=== PATIENT | male | born 1975 | race Caucasian/White ===

== ENCOUNTER → 2019-04-22 12:37 | Outpatient (BNVA) | payer MEDICARE, MEDICAID, SELFPAY | PROVIDERS: PCP Nurse Practitioner Family; Visit Provider Internal Medicine Cardiovascular Disease | DX: I50.33 Acute on chronic diastolic (congestive) heart failure (principal) | CPT/HCPCS: 83880 ==

== ENCOUNTER 2019-06-02 12:12 | Outpatient (CLI) | payer MEDICARE, MEDICAID, SELFPAY ==
--- NOTE | 2019-06-02 12:45 | USCV_ITS ---
Yg Vigil Age: 43 Gender: M : 1975 Exam Date: 06/02/2019 12:21 Ordering Phys: Cindy Harper MD ([email or web address]) Technologist: Jefferson Soto [place] [facility] [place]ication: EF BP: 124 / 72 HR: 107 Rhythm: Sinus Technical Quality: Adequate MEASUREMENTS (Male / Female) Normal Values 2D ECHO LV Diastolic Diameter PLAX 4.9 cm 4.2 - 5.9 / 3.9 - 5.3 cm LV Systolic Diameter PLAX 4.7 cm IVS Diastolic Thickness 0.8 cm 0.6 - 1.0 / 0.6 - 0.9 cm IVS Systolic Thickness 1.2 cm LVPW Diastolic Thickness 1.1 cm 0.6 - 1.0 / 0.6 - 0.9 cm LVPW Systolic Thickness 1.1 cm LVOT Diameter 2.1 cm LV Ejection Fraction 2D Teich 8.4 % LV Ejection Fraction MOD 2C 33.3 % LV Ejection Fraction 2C AL 35.2 % LA Diameter 3.7 cm LA Width 3.9 cm LA Height 4.9 cm RA Width 3.4 cm FINDINGS Left Ventricle Diffuse hypokinesia of the left ventricle with ejection fraction of 33%. Dilated LV cavity. Technically difficult study Right Ventricle Possibly of normal size and ejection fraction. Right Atrium Possibly of normal size Left Atrium Mildly dilated Mitral Valve Thickened mitral valve. Aortic Valve Thickened aortic valve. Tricuspid Valve Minimally thickened Pulmonic Valve Minimally thickened Pericardium No pericardial effusion. Aorta Normal aortic annulus size. CONCLUSIONS Mildly dilated LV cavity with a diminished ejection fraction 33%. Diffuse hypokinesia of the left ventricle. Mildly dilated left atrium. Thickened aortic and mitral valves. No obvious intracardiac masses. No significant pericardial effusion. Compared to the study from 12/29/2018, there may be slight improvement in the ejection fraction. Because of the technical difficulties, exact comparison is difficult. Consider MUGA scan Dr Cindy Harper MD FACC (Electronically Signed) Final Date: 04 June 2019 20:09 S
== END 2019-06-02 12:13 | disposition home or self-care (01) ==
LOC: US 12:14
PROVIDERS: Family Provider Nurse Practitioner Family; PCP Nurse Practitioner Family; Visit Provider Internal Medicine Cardiovascular Disease
DX: I42.9 Cardiomyopathy, unspecified (principal); I50.22 Chronic systolic (congestive) heart failure; I08.0 Rheumatic disorders of both mitral and aortic valves
CPT/HCPCS: 93308

== ENCOUNTER → 2019-12-24 12:12 | Outpatient (BNVA) | payer MEDICARE, MEDICAID, SELFPAY | PROVIDERS: Family Provider Nurse Practitioner Family; PCP Nurse Practitioner Family; Visit Provider Internal Medicine Cardiovascular Disease | DX: I50.33 Acute on chronic diastolic (congestive) heart failure (principal); I50.22 Chronic systolic (congestive) heart failure; I42.0 Dilated cardiomyopathy; R06.02 Shortness of breath | CPT/HCPCS: 80048; 83880 ==

== ENCOUNTER 2020-05-24 08:43 | Outpatient (CLI) | payer MEDICARE, MEDICAID, SELFPAY ==
--- NOTE | 2020-05-24 09:00 | NMCV_ITS ---
NM card bld pool r or s*[id number] Yg Vigil Age: 44 Gender: M : 1975 Exam Date: 05/24/2020 09:00 Ordering Phys: Cindy Harper MD ([email or web address]) Technologist: DIANNE Salamanca Exam Location: [facility] Indications: CARDIOMYOPATHY 356* Camera Used: [employer] Protocol: three view gated blood pool study Technical Image Quality: Good Dose: Admin Site: Administered By: [id number] Tagged RBCs: 23.9 IV - Right Hand DIANNE Jeffries PYP: EJECTION FRACTION: Automatic LV EF: 34 Rest RV EF: Manual LV EF: FINDINGS Ejection fraction by automatic method was 34%. LV wall motion analysis revealed diffuse hypokinesia of the left ventricle CONCLUSIONS LV ejection fraction is estimated to be 34%. Segmental wall motion analysis revealed diffuse hypokinesia of the left ventricle Dr Cindy Harper MD FACC (Electronically Signed) Final Date: 24 May 2020 18:57 S
== END 2020-05-24 08:44 | disposition home or self-care (01) ==
PROVIDERS: PCP Nurse Practitioner Family; Visit Provider Internal Medicine Cardiovascular Disease
DX: I42.9 Cardiomyopathy, unspecified (principal)
CPT/HCPCS: 78472; A9560

== ENCOUNTER → 2021-12-26 12:19 | Outpatient (BNVA) | payer MEDICARE, MEDICAID, SELFPAY | PROVIDERS: PCP Nurse Practitioner Family; Visit Provider Internal Medicine Cardiovascular Disease | DX: I11.0 Hypertensive heart disease with heart failure (principal); I50.22 Chronic systolic (congestive) heart failure; I42.0 Dilated cardiomyopathy; E78.2 Mixed hyperlipidemia; Z87.891 Personal history of nicotine dependence | CPT/HCPCS: 99213 ==

== ENCOUNTER → 2022-07-10 11:14 | Outpatient (BNVA) | payer MEDICARE, MEDICAID, SELFPAY | PROVIDERS: PCP Nurse Practitioner Family; Visit Provider Internal Medicine Cardiovascular Disease | DX: I11.0 Hypertensive heart disease with heart failure (principal); I50.22 Chronic systolic (congestive) heart failure; I42.0 Dilated cardiomyopathy; G47.33 Obstructive sleep apnea (adult) (pediatric); E78.2 Mixed hyperlipidemia; G71.00 Muscular dystrophy, unspecified; Z87.891 Personal history of nicotine dependence | CPT/HCPCS: 99214 ==

== ENCOUNTER 2022-08-03 13:47 | Outpatient (CLI) | payer MEDICARE, MEDICAID, SELFPAY ==
--- NOTE | 2022-08-03 13:45 | USCV_ITS ---
Yg Vigil Age: 46 Gender: M : 1975 Exam Date: 08/03/2022 14:25 Ordering Phys: Cindy Harper MD ([email or web address]) Technologist: RICARDO [place]am Location[place] [facility] [place] Indication: CARDIOMYOPATHY BP: 115 / 74 HR: 94 Rhythm: Sinus Technical Quality: Adequate MEASUREMENTS (Male / Female) Normal Values 2D ECHO LVOT Diameter 2.0 cm LV Ejection Fraction MOD 2C 43.9 % LV Ejection Fraction 2C AL 45.3 % LA Diameter 3.0 cm LA Width 2.8 cm LA Height 4.3 cm RA Width 3.4 cm RA Height 4.0 cm Aorta at Sinotubular Diameter 2.4 cm IVC Diameter 1.5 cm M-MODE Aortic Annulus Diameter 2.8 cm LA Ao Ratio MM 1.0 MV E Point Septal Separation 1.7 cm DOPPLER AV Peak Velocity 132.0 cm/s LVOT Peak Velocity 98.0 cm/s AV Area Cont Eq vti 2.5 cm squared AV Area Cont Eq pk 2.3 cm squared MV Peak Velocity 87.0 cm/s MV Area PHT 4.1 cm squared Mitral E to A Ratio 0.7 MV E' Velocity 30.5 cm/s Mitral E to MV E' Ratio 8.6 Mitral E to LV E' Lateral Ratio 9.8 Mitral E to LV E' Septal Ratio 7.7 TR Peak Velocity 136.2 cm/s TR Peak Gradient 7.4 mmHg TR Mean Velocity 108.4 cm/s TR Mean Gradient 5.0 mmHg TR Velocity Time Integral 31.2 cm TV Peak E Velocity 41.0 cm/s Right Atrial Pressure 3.0 mmHg Pulmonary Artery Systolic Pressu 10.4 mmHg PV Peak Velocity 120.0 cm/s RV Acceleration Time 0.1 s RV Ejection Time 0.2 s RV AcT/ET 0.5 FINDINGS Left Ventricle Left ventricle appears to be dilated. LV systolic function is moderately reduced with EF of 35 to 40%. Moderate global hypokinesis is seen. Grade 1 diastolic dysfunction. Right Ventricle Normal in size. RV is mildly hypokinetic by TAPSE Right Atrium Normal in size Left Atrium Normal in size Mitral Valve Structurally normal mitral valve. Trace mitral regurgitation. Aortic Valve Aortic valve is thickened. No significant stenosis or regurgitation. Tricuspid Valve Insufficient TR jet to calculate RVSP Pulmonic Valve Not well-visualized Pericardium Normal Aorta Normal in size IVC Appears to be normal CONCLUSIONS Left ventricle is dilated. LV systolic function is moderately reduced with EF of 35 to 40%. Moderate global hypokinesis seen. Grade 1 diastolic dysfunction. RV is mildly hypokinetic by TAPSE. Trace mitral regurgitation Compared to prior echocardiogram from 2019, LV systolic function has improved slightly. Juma Mansfield MD (Electronically Signed) Final Date: 12 August 2022 14:38 S
== END 2022-08-03 13:48 | disposition home or self-care (01) ==
LOC: RAD 13:51
PROVIDERS: PCP Nurse Practitioner Family; Visit Provider Internal Medicine Cardiovascular Disease
DX: I42.9 Cardiomyopathy, unspecified (principal); R06.09 Other forms of dyspnea
CPT/HCPCS: 93306; 99214

== ENCOUNTER → 2023-01-18 15:12 | Outpatient (BNVA) | payer MEDICARE, MEDICAID, SELFPAY | PROVIDERS: PCP Nurse Practitioner Family; Visit Provider Internal Medicine Cardiovascular Disease | DX: R06.02 Shortness of breath (principal); I10 Essential (primary) hypertension | CPT/HCPCS: 80048; 83880; 99214 ==

== ENCOUNTER 2023-04-02 20:43 | Observation (INO) | payer MEDICARE, MEDICAID, SELFPAY ==
[2023-04-02 20:48] VITALS: BP 151/95; PULSE 105; RESP 18; TEMP 36.6; O2SAT 93
--- NOTE | 2023-04-02 21:06 | XRR_ITS ---
PROCEDURE INFORMATION: Exam: XR Chest Exam date and time: 04/02/2023 9:11 PM Age: 47 years old Clinical indication: Fever and shortness of breath; Additional info: Hypoxia TECHNIQUE: Imaging protocol: Radiologic exam of the chest. Views: 1 view. COMPARISON: CR XR chest 1V [id number] 12/29/2018 3:03 PM FINDINGS: Lungs: Hazy opacities in the mid right lung raising the question of atypical infection in the proper clinical setting. No evidence of focal consolidation. Pleural spaces: No evidence of pneumothorax. No evidence of pleural effusion. Heart/Mediastinum: Cardiomediastinal silhouette is within normal limits. Bones/joints: No evidence of acute osseous abnormality. XR/XR chest 1V portable [id number] IMPRESSION: 1. Hazy opacities in the mid right lung raising the question of atypical infection in the proper clinical setting.
[2023-04-02 21:07] VITALS: BP 176/103; PULSE 99; RESP 14; O2SAT 94
--- NOTE | 2023-04-02 21:09 | ED_ITS ---
Documented by User: [email or web address] Fu 04/02/23 23:02 HPI - General Adult 2 General: Chief complaint: Headache Stated complaint: Fever\Sob\Headache Time Seen by Provider: 04/02/23 20:55 Source: patient Mode of arrival: ambulatory Limitations: no limitations History of Present Illness: 47yo male with a history of muscular dys trophy and CHF presents with significant other for evaluation of fever and headache that has been ongoing for the past 4 days. Patient reports that he believes his headache may be related to lack of oxygen. He states that they have been checking his oxygen saturation at home and has been anywhere between 82 and 92. Patient denies recent weight gain, difficulty breathing, shortness of breath, chest pain, sore throat, abdominal pain, vomiting, diarrhea, known sick contacts. Associated symptoms: Reports headache(s) (throbbing, all over); Deny chest pain, dyspnea or vomiting Review of Systems 2 Const: Reports: fever(s) and chills; Denies: change in weight ENMT: Denies: throat pain Card: Denies: chest pain Resp: Denies: dyspnea GI: Denies: abdominal pain, vomiting or diarrhea Neuro: Reports: headache(s) (throbbing, all over) PFSH ED 2 PFSH: Medical History (Updated 04/04/23 @ 06:20 by Tristen Sánchez MD) Celiac disease Chronic systolic heart failure Muscular dystrophy Cardiomyopathy EMMANUEL (obstructive sleep apnea) Hypertension Hyperlipidemia Eustachian tube dysfunction Surgical History Hx of tonsillectomy Hx of appendectomy Family History Mother Anesthesia complication Cancer Grandmother CAD (coronary artery disease) Cancer Dementia Grandfather CAD (coronary artery disease) Stroke Father CAD (coronary artery disease) Diabetes Other Hypertension Denies family history of Clotting disorder Chronic kidney disease (CKD) Suicide Bleeding disorder Lung disease Social History Smoking and tobacco/nicotine status: former use of tobacco/nicotine Alcohol intake: never Substance/Drug Use: never Physical Exam 2 Const: COMMON NORMALS: no acute distress, patient oriented x3 and alert G ENERAL APPEARANCE: cooperative ORIENTATION/CONSCIOUSNESS: Yes awake OTHER: Patient is sitting upright on stretcher no acute distress. He is able to give history with no difficulty. He is interactive with exam appropriately. Family is at bedside HENMT: COMMON NORMALS: normocephalic HEAD & SCALP: normocephalic FACE & SINUS: normal facial exam THROAT: postnasal drainage Eye: COMMON NORMALS: Equal, round and reactive pupils present GENERAL EYE: appearance normal, both eyes and all related structures PUPIL: Yes Equal, round and reactive pupils present Chest: CHEST: Yes Symmetrical chest wall rise Resp: COMMON NORMALS: normal respiratory effort, No use of accessory muscles and clear to auscultation bilaterally AUSCULTATION: clear to auscultation bilaterally Cardio: COMMON NORMALS: regular rate and regular rhythm RATE: regular rate RHYTHM: regular rhythm Extremity: NARRATIVE EXTREMITY EXAM: MAANGELIC Neuro: COMMON NORMALS: patient oriented x3, CN's II-XII intact bilaterally and moves all extremities SENSORIUM/ORIENTATION: Yes alert C OORDINATION/BALANCE: [id number] test normal COORDINATION: [id number] test normal Psych: COMMON NORMALS: cooperative and speech normal ATTITUDE: Yes calm SPEECH: Yes normal speech Course 2 Reevaluation(s): Reevaluation #1: Reevaluated patient. He reported that his headache has improved since he has been on the oxygen. Discussed labs and x-ray findings with the concern for a right middle lobe infiltrate. Significant other does indicate that the patient has been in the 80s while he was sleeping on 2 L nasal cannula. Time: 22:25 Consultations: Consultation #1: Discussed case with Dr Sánchez, ER Attending for admission for pneumonia. Time: 22:45 Vital Signs: Vital signs: Vital Signs Temperature 96.2 F L 04/03/23 13:33 Pulse Rate 98 04/03/23 13:33 Respiratory Rate 24 H 04/03/23 13:33 Blood Pressure 139/90 04/03/23 13:33 Pulse Oximetry 94 04/03/23 13:33 Oxygen Delivery Me thod Aerosol Mask 04/03/23 11:38 Oxygen Flow Rate 2 04/03/23 11:38 MDM - General Adult Medical Decision Making 47yo male here with family for evaluation of headache and fever that has been ongoing for the past 4 days. Patient also reports that his oxygen at home has been between 82 and 92 using their home pulse ox. States a history of muscular dystrophy and CHF. Patient denies any recent weight gain, cough, shortness of breath, chest pain, sore throat, abdominal pain, vomiting, diarrhea. Patient is nontoxic in appearance. Vital signs are stable. Room air oxygen noted to be 88 to 89%, patient was placed on 2 L nasal cannula with an oxygen saturation of 94%. Will proceed with chest x-ray, labs, and influenza testing. Chest x-ray is concerning for atypical infection in the right midlung. CBC is grossly unremarkable. proBNP is in the normal range. CMP with a CO2 of 31, otherwise grossly unremarkable. Discussed these findings with patient. Patient was noted to be 89 to 90% on 2 L nasal cannula while sleeping. However, he did report that his headache had resolved after being on oxygen. Discussed with patient that given his hypoxia with the concern for pneumonia on chest x-ray, we do recommend admission to the hospital for IV antibiotics as well as continued oxygen therapy. Patient and family are agreeable with plan. I discussed the patient's history of present illness, physical exam findings, pertinent labs, pertinent radiographic exams and plan of care with the midlevel provider. I did personally have a [id number] evaluation and discussion with the patient regarding the plan of care and the need for further evaluation to include admission. Lab Data 04/02/23:04/02/23: Radiology Impressions Chest X-Ray 04/02/23 21: IMPRESSION: 1. Hazy opacities in the mid right lung raising the question of atypical infection in the proper clinical setting. Laboratory Results WBC 5.66 10^3/uL (3.29-11.43) 04/02/23: RBC 5.27 10^6/uL (3.85-5.65) 04/02/23: Hgb 14.90 g/dL (11.27-16.99) 04/02/23: Hct 46.5 % (37-53) 04/02/23: MCV 88.2 fl (82-101) 04/02/23: MCH 28.3 pg (27-33) 04/02/23: MCHC 32.0 g/dL (30-55) 04/02/23: RDW 12.4 % (12.1-15.1) 04/02/23: Plt Count 249 10^3/cmm (157-399) 04/02/23: MPV 8.7 fL (7.4-10.4) 04/02/23: Neut % (Auto) 51.8 % 04/02/23: Lymph % (Auto) 31.3 % 04/02/23: [place] % (Auto) 11.3 % 04/02/23: Eos % (Auto) 4.9 % 04/02/23 21: Baso % (Auto) 0.5 % 04/02/23: Neut # (Auto) 2.93 10^3/uL (1.8-7.7) 04/02/23: Lymph # (Auto) 1.8 10^3/uL (0.8-4.8) 04/02/23: [place] # (Auto) 0.6 10^3/uL (0.2-0.9) 04/02/23: Eos # (Auto) 0.3 10^3/uL (0.0-0.8) 04/02/23: Baso # (Auto) 0.0 10^3/uL (0.0-0.1) 04/02/23: Nucleated RBC % (auto) 0 % 04/02/23: Nucleated RBCs # 0.0 /100WBC 04/02/23: D-Dimer 0.57 ug/mLFEU (0-0.59) 04/02/23: Sodium 140 mmol/L (136-145) 04/02/23 21: Potassium 4.2 mmol/L (3.5-5.1) 04/02/23: Chloride 101 mmol/L (98-107) 04/02/23: Carbon Dioxide 31 mmol/L (22-29) H 04/02/23: Anion Gap 12.2 (5-19) 04/02/23: BUN 7 mg/dL (6-20) 04/02/23: Creatinine 0.5 mg/dL (0.7-1.2) L 04/02/23 21:29 GFR Calculation 178.2 mL/min (90-130) H 04/02/23 21:29 Glucose 128 mg/dL (65-115) H 04/02/23 21:29 Calculated Osmolality 290 mOsm/kg (285-295) 04/02/23 21:29 Calcium 8.5 mg/dL (8.5-10.5) 04/02/23 21:29 Total Bilirubin 0.2 mg/dL (0.15-1.2) 04/02/23 21:29 AST 15 U/L (0-40) 04/02/23 21:29 ALT 18 U/L (0-41) 04/02/23 21:29 Alkaline Phosphatase 68 U/L (40-130) 04/02/23 21:29 NT-Pro-B Natriuret Pep 108 pg/mL (0-125) 04/02/23 21:29 Total Protein 6.7 g/dL (6.6-8.7) 04/02/23 21:29 Albumin 3.6 g/dL (3.5-5.2) 04/02/23 21:29 Globulin 3.1 g/dL (1.3-4.6) 04/02/23 21:29 Influenza Type A Ag negative (Negative) 04/02/23 21:10 Influenza Type B Ag negative (Negative) 04/02/23 21:10 SARS-CoV-2 Ag (Rapid) negative (Negative) 04/02/23 21:10 All radiology interpretation(s) finalized by discharge Discharge Plan Discharge Patient Disposition: Admitted As Inpatient Admit Provider: Darian Vogt Clinical Impression: Pneumonia, Hypoxemia Condition: Stable Discharge Diet: Regular Discharge Activity: Increase activity as tolerated Coding Level of Care Code ED [employer] for Chg Fwd Documented by User: Tristen Sánchez MD 04/04/23 06:20 HPI - General Adult 2 General: Chief complaint: Headache Stated complaint: Fever\Sob\Headache Time Seen by Provider: 04/02/23 20:55 [facility] ED 2 PFS: Medical History (Updated 04/04/23 @ 06:20 by Tristen Sánchez MD) Celiac disease Chronic systolic heart failure Muscular dystrophy Cardiomyopathy EMMANUEL (obstructive sleep apnea) Hypertension Hyperlipidemia Eustachian tube dysfunction Surgical History Hx of tonsillectomy Hx of appendectomy Family History Mother Anesthesia complication Cancer Grandmother CAD (coronary artery disease) Cancer Dementia Grandfather CAD (coronary artery disease) Stroke Father CAD (coronary artery disease) Diabetes Other Hypertension Denies family history of Clotting disorder Chronic kidney disease (CKD) Suicide Bleeding disorder Lung disease Social History Smoking and tobacco/nicotine status: former use of tobacco/nicotine Alcohol intake: never Substance/Drug Use: never Course 2 Vital Signs: Vital signs: Vital Signs Temperature 96.2 F L 04/03/23 13:33 Pulse Rate 98 04/03/23 13:33 Respiratory Rate 24 H 04/03/23 13:33 Blood Pressure 139/90 04/03/23 13:33 Pulse Oximetry 94 04/03/23 13:33 Oxygen Delivery Me thod Aerosol Mask 04/03/23 11:38 Oxygen Flow Rate 2 04/03/23 11:38 MDM - General Adult Medical Decision Making 47yo male here with family for evaluation of headache and fever that has been ongoing for the past 4 days. Patient also reports that his oxygen at home has been between 82 and 92 using their home pulse ox. States a history of muscular dystrophy and CHF. Patient denies any recent weight gain, cough, shortness of breath, chest pain, sore throat, abdominal pain, vomiting, diarrhea. Patient is nontoxic in appearance. Vital signs are stable. Room air oxygen noted to be 88 to 89%, patient was placed on 2 L nasal cannula with an oxygen saturation of 94%. Will proceed with chest x-ray, labs, and influenza testing. I discussed the patient's history of present illness, physical exam findings, pertinent labs, pertinent radiographic exams and plan of care with the midlevel provider. I did personally have a [id number] evaluation and discussion with the patient regarding the plan of care and the need for further evaluation to include admission. Lab Data I reviewed the patient's lab results. 04/02/23 21:04/02/23: Radiology Impressions Chest X-Ray 04/02/23 21: IMPRESSION: 1. Hazy opacities in the mid right lung raising the question of atypical infection in the proper clinical setting. Laboratory Results WBC 5.66 10^3/uL (3.29-11.43) 04/02/23: RBC 5.27 10^6/uL (3.85-5.65) 04/02/23: Hgb 14.90 g/dL (11.27-16.99) 04/02/23: Hct 46.5 % (37-53) 04/02/23 21: MCV 88.2 fl (82-101) 04/02/23: MCH 28.3 pg (27-33) 04/02/23: MCHC 32.0 g/dL (30-55) 04/02/23: RDW 12.4 % (12.1-15.1) 04/02/23: Plt Count 249 10^3/cmm (157-399) 04/02/23: MPV 8.7 fL (7.4-10.4) 04/02/23: Neut % (Auto) 51.8 % 04/02/23: Lymph % (Auto) 31.3 % 04/02/23: [place] % (Auto) 11.3 % 04/02/23: Eos % (Auto) 4.9 % 04/02/23: Baso % (Auto) 0.5 % 04/02/23: Neut # (Auto) 2.93 10^3/uL (1.8-7.7) 04/02/23: Lymph # (Auto) 1.8 10^3/uL (0.8-4.8) 04/02/23: [place] # (Auto) 0.6 10^3/uL (0.2-0.9) 04/02/23: Eos # (Auto) 0.3 10^3/uL (0.0-0.8) 04/02/23 21: Baso # (Auto) 0.0 10^3/uL (0.0-0.1) 04/02/23: Nucleated RBC % (auto) 0 % 04/02/23: Nucleated RBCs # 0.0 /100WBC 04/02/23: D-Dimer 0.57 ug/mLFEU (0-0.59) 04/02/23: Sodium 140 mmol/L (136-145) 04/02/23 21: Potassium 4.2 mmol/L (3.5-5.1) 04/02/23: Chloride 101 mmol/L (98-107) 04/02/23: Carbon Dioxide 31 mmol/L (22-29) H 04/02/23: Anion Gap 12.2 (5-19) 04/02/23: BUN 7 mg/dL (6-20) 04/02/23: Creatinine 0.5 mg/dL (0.7-1.2) L 04/02/23: GFR Calculation 178.2 mL/min (90-130) H 04/02/23: Glucose 128 mg/dL (65-115) H 04/02/23: Calculated Osmolality 290 mOsm/kg (285-295) 04/02/23: Calcium 8.5 mg/dL (8.5-10.5) 04/02/23: Total Bilirubin 0.2 mg/dL (0.15-1.2) 04/02/23: AST 15 U/L (0-40) 04/02/23: ALT 18 U/L (0-41) 04/02/23: Alkaline Phosphatase 68 U/L (40-130) 04/02/23: NT-Pro-B Natriuret Pep 108 pg/mL (0-125) 04/02/23: Total Protein 6.7 g/dL (6.6-8.7) 04/02/23: Albumin 3.6 g/dL (3.5-5.2) 04/02/23: Globulin 3.1 g/dL (1.3-4.6) 04/02/23 21:29 Influenza Type A Ag negative (Negative) 04/02/23 21:10 Influenza Type B Ag negative (Negative) 04/02/23 21:10 SARS-CoV-2 Ag (Rapid) negative (Negative) 04/02/23 21:10 Discharge Plan Discharge Patient Disposition: Admitted As Inpatient Admit Provider: Darian Vogt Clinical Impression: Pneumonia, Hypoxemia Condition: Stable Discharge Diet: Regular Discharge Activity: Increase activity as tolerated Coding Level of Care Code ED [employer] for Stephanie Ma
[2023-04-02 21:31] LABS: Influenza A by IFA negative (Negative); Influenza B by IFA negative (Negative); SARS Covid-2 Antigen negative (Negative)
[2023-04-02 21:33] LABS: Basophils % 0.5 %; Eosinophils # 0.3 10^3/uL (0.0-0.8); Eosinophils % 4.9 %; Hematocrit 46.5 % (37-53); Lymphocytes # 1.8 10^3/uL (0.8-4.8); Lymphocytes % 31.3 %; Mean Corpuscular Hemoglobin 28.3 pg (27-33); Mean Corpuscular Volume 88.2 fl (82-101); Mean Platelet Volume 8.7 fL (7.4-10.4); Monocytes # 0.6 10^3/uL (0.2-0.9); Monocytes % 11.3 %; Neutrophils # 2.93 10^3/uL (1.8-7.7); Neutrophils % 51.8 %; Nucleated Red Blood Cells % 0 %; Platelet Count 249 10^3/cmm (157-399); Red Blood Count 5.27 10^6/uL (3.85-5.65); Red Cell Distribution Width 12.4 % (12.1-15.1); White Blood Count 5.66 10^3/uL (3.29-11.43)
[2023-04-02 22:12] LABS: Alanine Aminotransferase 18 U/L (0-41); Albumin Level 3.6 g/dL (3.5-5.2); Alkaline Phosphatase 68 U/L (40-130); Aspartate Amino Transferase 15 U/L (0-40); Blood Urea Nitrogen 7 mg/dL (6-20); Calcium 8.5 mg/dL (8.5-10.5); Carbon Dioxide 31 mmol/L (22-29); Chloride 101 mmol/L (98-107); Globulin 3.1 g/dL (1.3-4.6); Glomerular Filtration Rate 178.2 mL/min (90-130); Glucose 128 mg/dL (65-115); NT Pro B Type Natriuretic Pept 108 pg/mL (0-125); Osmolality Calculated 290 mOsm/kg (285-295); Sodium 140 mmol/L (136-145); Total Bilirubin 0.2 mg/dL (0.15-1.2); Total Protein 6.7 g/dL (6.6-8.7)
[2023-04-02 22:18] LABS: Anion Gap 12.2 (5-19); Potassium 4.2 mmol/L (3.5-5.1)
[2023-04-02 22:40] VITALS: BP 134/100; PULSE 101; RESP 19; O2SAT 93
[2023-04-02 23:13] LABS: D Dimer 0.57 ug/mLFEU (0-0.59)
[2023-04-02 23:36] LABS: Procalcitonin 0.08 ng/mL (0-0.5)
[2023-04-02] MEDS: azithromycin 500 MG in sodium chloride 0.9% 250 ML 250 MG IV (23:45)
[2023-04-02 23:55] VITALS: BP 158/86; O2SAT 94
[2023-04-03] VITALS (8 sets, daily range): BP systolic 137–142; BP diastolic 90–97; PULSE 83–110; RESP 20–24; TEMP 35.7–36.9; O2SAT 87–94
--- NOTE | 2023-04-03 01:30 | P.HP_ITS ---
Providers/Chief Complaint 2 Admitting Physician: Darian Vogt Primary Care Provider: Ashley Vu Chief Complaint: Fever\Sob\Headache History of Present Illness 47-year-old gentleman with history of muscular dystrophy, symptomatic usually with just generalized weakness, congestive heart failure, reports not recently in exacerbation, does get orthopnea, not normally on oxygen, sleep apnea not on CPAP and not on oxygen at night, presented with shortness of breath, low oxygen saturation at home down to as low as 82%, malaise over the last 4 days. Mild headache. No nausea vomiting or diarrhea. Denies noticing overt aspiration. Review of Systems 2 Const: Denies: fever(s), chills, body aches or malaise ENMT: Denies: throat pain Card: Denies: chest pain, edema, pre-syncope or dyspnea on exertion Resp: Reports: dyspnea and non-productive cough; Denies: productive cough, change in phlegm color or hemoptysis GI: Denies: abdominal pain, nausea, vomiting, diarrhea, constipation, hematochezia or melena : Denies: flank pain, difficulty urinating, urinary frequency or hematuria Musc: Denies: back pain, joint swelling or joint redness Skin/Breast: Denies: rash or new lesions Neuro: Denies: headache(s), numbness in extremities, weakness in extremities, dizziness, confusion or seizure-like activity Medications/Allergies Home Medications Medication Instructions Recorded Confirmed Last Taken Type aspirin 81 mg tablet,delayed 81 mg PO DAILY 07/10/22 04/03/23 04/02/23 History release (Adult Aspirin Regimen) carvedilol 6.25 mg tablet 6.25 mg PO BID #180 tabs 02/01/23 04/03/23 04/02/23 14:00 Rx potassium chloride 10 mEq 20 meq (2 x 10 mEq) PO DAILY #180 02/01/23 04/03/23 04/02/23 14:00 Rx tablet,extended release tabs furosemide 40 mg tablet 40 mg PO DAILY 04/03/23 04/03/23 04/01/23 History sacubitril 49 mg-valsartan 51 mg 1 tab PO 2XD 04/03/23 04/03/23 04/02/23 14:00 History tablet (Entresto) spironolactone 25 mg tablet 25 mg PO DAILY 04/03/23 04/03/23 04/02/23 14:00 History Allergies Allergy/AdvReac Type Severity Reaction Status Date / Time No Known Allergies Allergy Verified 04/02/23 20:55 PFSH Acute 2 PFSH: Medical History (Updated 04/03/23 @ 01:56 by Darian Vogt MD) Celiac disease Chronic systolic heart failure Muscular dystrophy Cardiomyopathy EMMANUEL (obstructive sleep apnea) Hypertension Hyperlipidemia Eustachian tube dysfunction Surgical History Hx of tonsillectomy Hx of appendectomy Family History Mother Anesthesia complication Cancer Grandmother CAD (coronary artery disease) Cancer Dementia Grandfather CAD (coronary artery disease) Stroke Father CAD (coronary artery disease) Diabetes Other Hypertension Denies family history of Clotting disorder Chronic kidney disease (CKD) Suicide Bleeding disorder Lung disease Social History Smoking and tobacco/nicotine status: former use of tobacco/nicotine Alcohol intake: never Substance/Drug Use: never Vitals/I&O/Wt Last Vital Signs Temp 98.4 F 04/03/23 00:08 Pulse 110 H 04/03/23 00:08 Resp 21 H 04/03/23 00:08 BP 142/91 04/03/23 00:08 Pulse Ox 93 04/03/23 00:08 O2 Del Method Nasal Cannula 04/03/23 00:08 O2 Flow Rate 2 04/02/23 22:40 04/02/23 04/02/23 04/03/23 14:59 22:59 06:59 Intake Total 250 / 250 Balance 250 / 250 Weight last 48 hrs Weight 110.994 kg Weight 106.594 kg Physical Exam 2 Narrative: Accompanied by life partner Const: COMMON NORMALS: patient oriented x3 and alert GENERAL APPEARANCE: c ooperative ORIENTATION/CONSCIOUSNESS: Yes awake HENMT: COMMON NORMALS: oropharynx normal Neck/C-Spine: COMMON NORMALS: no JVD Resp: COMMON NORMALS: normal respiratory effort and clear to auscultation bilaterally AUSCULTATION: clear to auscultation bilaterally Cardio: COMMON NORMALS: no JVD, regular rhythm, S1 normal heart sound present, S2 normal heart sound present and No murmurs present (Cardio) RHYTHM: regular rhythm HEART SOUNDS: S1 normal heart sound present and S2 normal heart sound present GI: COMMON NORMALS: Normal to inspection, nondistended, normoactive bowel sounds present, Soft to palpation and non-tender PALPATION: Yes Soft to palpation Extremity: COMMON NORMALS: no joint enlargement and no pedal edema Neuro: COMMON NORMALS: patient oriented x3 and moves all extremities S ENSORIUM/ORIENTATION: Yes alert Skin: COMMON NORMALS: no rashes or lesions noted GENERAL SKIN EXAM: no rashes or lesions noted Data 04/02/23 21:29 04/02/23 21:29 Micro: Microbiology 04/02/23 23:04 Blood Culture - Preliminary Blood SPECIMEN COLLECTED 04/02/23 23:00 Blood Culture - Preliminary Blood SPECIMEN COLLECTED A&P Assessment and plan (1) Pneumonia: Right middle lobe pneumonia with respiratory failure, with shortness of breath, dyspnea, tachycardia, hypoxia oxygen saturation down to 82%, requiring 4 L nasal cannula oxygen at presentation. Not normally oxygen. Reviewed vitals, CBC, CMP, procalcitonin, rapid influenza, rapid COVID-19, chest x-ray, ER documentation, discussed with ER physician. Discussed with patient and family. She denies overt aspiration, but with muscular dystrophy, generalized weakness, certainly there is concern for possible pharyngeal dysphagia, weakness of swallowing apparatus. Aspiration precautions, requesting MBS, speech therapy evaluation. Possible aspiration pneumonia. Otherwise signs of possible atypical pneumonia. He is afebrile here, without leukocytosis. Requested and reviewed D-dimer, low suspicion for PE. Continue ceftriaxone, azithromycin for possible community-acquired pneumonia, discussed with patient and his life partner rapid respiratory viral studies negative, but not always reliable, but currently there is a shortage of COVID PCR viral panel, unable to confirm. Maintain isolation for now. Monitor oxygenation. Monitor for risk of QT prolongation with azithromycin. Obtain EKG. (2) Respiratory failure: Acute hypoxic respiratory failure. As above. Plan Muscular dystrophy EMMANUEL, not on CPAP History of diastolic CHF: Not in exacerbation. Continue Lasix, spironolactone, Entresto, aspirin carvedilol. HTN: Monitor blood pressures, medications as above. HLD Attestations 2 Medical Necessity Statement*: Place in observation for additional assessment and management of acute respiratory failure with hypoxia, pneumonia in a gentleman with underlying muscular dystrophy. Diagnoses Pneumonia J18.9 Respiratory failure J96.90
[2023-04-03] MEDS: cefTRIAXone 1,000 MG in sodium chloride 0.9% (plus) 50 ML 100 MG IV (01:31)
[2023-04-03] MEDS: heparin 5,000 unit/mL INJ 1 mL 5000 UNIT SUBCUT (02:01)
--- NOTE | 2023-04-03 03:15 | ECG_ITS ---
[facility] Test Date: 2023-04-03 Pat Name: Yg Vigil Department: Room: 101 Gender: Male [employer]: : [id number] Requested By: Darian Vogt Order Number: [id number] Narendra MD: Juma Mansfield M.D. Measurements Intervals [place] Rate: 85 P: 49 FL: 165 QRS: 21 QRSD: 97 T: 107 QT: 365 QTc: 435 Interpretive Statements SINUS RHYTHM WITH SINUS ARRHYTHMIA LEFT VENTRICULAR HYPERTROPHY AND ST-T CHANGE [VOLTAGE CRITERIA PLUS ST/T ABNORMALITY] Compared to ECG 12/29/2018 03:42:50 Sinus tachycardia no longer present ST (T wave) deviation still present Electronically Signed On 04-03-2023 16:33:00 [employer] by Juma Mansfield M.D. [id number]
[2023-04-03] MEDS: acetaminophen 325 mg Tablet 650 MG PO (03:22)
--- NOTE | 2023-04-03 03:34 | PC.NURSE ---
Patient removing oxygen. Patient refusing oxygen via nasal cannula because he states it feels like too much pressure and is drying him out. RT put patient on a mask but patient removed thatt too stating it was giving him a headache. Nurse medicated patient with prn tylenol for headache and obtained order from for prn nasal saline spray.
[2023-04-03] MEDS: saline nasal spray 44mL Btl 1 SPRAY NASAL (04:29)
[2023-04-03] MEDS: FUROsemide 40 mg Tablet PO (09:17)
[2023-04-03] MEDS: spironolactone 25 mg Tablet PO (09:17)
[2023-04-03] MEDS: aspirin 81 mg EC Tablet PO (09:17)
[2023-04-03] MEDS: carvedilol 6.25 mg Tablet PO (09:17)
--- NOTE | 2023-04-03 13:05 | PM.DCS ---
Discharge Providers Date of Admission: 04/02/23 22:57 Date of Discharge: April 03, 2023 Attending Provider at Admission: Darian Vogt Attending Provider at Discharge: David Rea MD Primary Care Provider: Ashley Vu Diagnoses at Discharge Discharge Diagnosis (1) Pneumonia: Status: Acute (2) Respiratory failure: Status: Acute Reason for Visit Reason for Visit: Fever\Sob\Headache Hospital Course Hospital Course Patient is a 47-year-old white male who presented to the hospital with fever, shortness of breath. He has a past medical history of muscular dystrophy. He denied any nausea, diarrhea, vomiting, or difficulty with eating. He required some oxygen on admission, 4 L initially. Rapid influenza and COVID were negative. Chest x-ray demonstrated a right middle lobe infiltrate. He was placed on ceftriaxone and azithromycin. With this treatment, he was already feeling better when I saw him the morning of April 03. I took him off his oxygen at that time his saturations were approximately 90% or greater. I checked on him again at approximately 1 PM and he very much wanted to go home. He denied feeling short of breath after ambulating. He denied any swallowing difficulties. He did not want to stay for swallowing evaluation as this would not be until tomorrow. I encouraged him to visit with his primary care provider regarding the need for this in the future, as well as further evaluation of his sleep apnea and whether he would entertain CPAP or BiPAP in the future. He and his significant other were given an opportunity ask questions and agreed with the plan. He will finish up a short course of cefdinir and Zithromax. He is to return for any concerns. Physical Exam Narrative: General exam no distress, oxygen saturation 92% room air Neck is supple Cardiovascular regular rate and rhythm Lungs clear no wheezing or crackles Abdomen is soft, positive bowel sounds Extremities no cyanosis clubbing or edema Discharge Data Studies Completed and Pending Completed Studies During Hospitalization Category Date Time Status CXRP [XR chest 1V portable [id number]] Stat Exams 04/02/23 21:06 Completed Pending at discharge Category Date Time Status Modified barium swallow [FL barium swallow modifd 62485 Exams 04/03/23 01:22 Ordered ] Routine Basic Metabolic Panel AM LABS Lab 04/04/23 04:00 Ordered Basic Metabolic Panel AM LABS Lab 04/05/23 04:00 Ordered Basic Metabolic Panel AM LABS Lab 04/06/23 04:00 Ordered Blood Culture Stat Lab 04/02/23 23:04 Results Complete Blood Count w/Auto AM LABS Lab 04/04/23 04:00 Ordered Complete Blood Count w/Auto AM LABS Lab 04/05/23 04:00 Ordered Complete Blood Count w/Auto AM LABS Lab 04/06/23 04:00 Ordered Radiology Impressions Chest X-Ray 04/02/23 21:06 IMPRESSION: 1. Hazy opacities in the mid right lung raising the question of atypical infection in the proper clinical setting. Laboratory Results WBC 5.66 10^3/uL (3.29-11.43) 04/02/23 21: RBC 5.27 10^6/uL (3.85-5.65) 04/02/23 21: Hgb 14.90 g/dL (11.27-16.99) 04/02/23 21: Hct 46.5 % (37-53) 04/02/23 21: MCV 88.2 fl (82-101) 04/02/23 21: MCH 28.3 pg (27-33) 04/02/23 21: MCHC 32.0 g/dL (30-55) 04/02/23 21: RDW 12.4 % (12.1-15.1) 04/02/23 21: Plt Count 249 10^3/cmm (157-399) 04/02/23 21: MPV 8.7 fL (7.4-10.4) 04/02/23 21: Neut % (Auto) 51.8 % 04/02/23 21: Lymph % (Auto) 31.3 % 04/02/23 21: [place] % (Auto) 11.3 % 04/02/23 21: Eos % (Auto) 4.9 % 04/02/23 21: Baso % (Auto) 0.5 % 04/02/23 21: Neut # (Auto) 2.93 10^3/uL (1.8-7.7) 04/02/23 21: Lymph # (Auto) 1.8 10^3/uL (0.8-4.8) 04/02/23 21: [place] # (Auto) 0.6 10^3/uL (0.2-0.9) 04/02/23 21:29 Eos # (Auto) 0.3 10^3/uL (0.0-0.8) 04/02/23 21: Baso # (Auto) 0.0 10^3/uL (0.0-0.1) 04/02/23 21: Nucleated RBC % (auto) 0 % 04/02/23 21: Nucleated RBCs # 0.0 /100WBC 04/02/23 21: D-Dimer 0.57 ug/mLFEU (0-0.59) 04/02/23 21:29 Sodium 140 mmol/L (136-145) 04/02/23 21: Potassium 4.2 mmol/L (3.5-5.1) 04/02/23: Chloride 101 mmol/L (98-107) 04/02/23: Carbon Dioxide 31 mmol/L (22-29) H 04/02/23: Anion Gap 12.2 (5-19) 04/02/23 21: BUN 7 mg/dL (6-20) 04/02/23 21: Creatinine 0.5 mg/dL (0.7-1.2) L 04/02/23: GFR Calculation 178.2 mL/min (90-130) H 04/02/23: Glucose 128 mg/dL (65-115) H 04/02/23: Calculated Osmolality 290 mOsm/kg (285-295) 04/02/23: Lactic Acid 1.0 mmol/L (0.5-2.2) 04/02/23 23:00 Calcium 8.5 mg/dL (8.5-10.5) 04/02/23: Total Bilirubin 0.2 mg/dL (0.15-1.2) 04/02/23 21: AST 15 U/L (0-40) 04/02/23: ALT 18 U/L (0-41) 04/02/23 21: Alkaline Phosphatase 68 U/L (40-130) 04/02/23 21: NT-Pro-B Natriuret Pep 108 pg/mL (0-125) 04/02/23: Total Protein 6.7 g/dL (6.6-8.7) 04/02/23 21:29 Albumin 3.6 g/dL (3.5-5.2) 04/02/23 21:29 Globulin 3.1 g/dL (1.3-4.6) 04/02/23 21:29 Procalcitonin 0.08 ng/mL (0-0.5) 04/02/23 23:00 Influenza Type A Ag negative (Negative) 04/02/23 21:10 Influenza Type B Ag negative (Negative) 04/02/23 21:10 SARS-CoV-2 Ag (Rapid) negative (Negative) 04/02/23 21:10 Vitals Last Vital Signs Temp 96.2 F L 04/03/23 11:38 Pulse 98 04/03/23 11:38 Resp 24 H 04/03/23 11:38 BP 139/90 04/03/23 11:38 Pulse Ox 94 04/03/23 11:38 O2 Del Method Aerosol Mask 04/03/23 11:38 O2 Flow Rate 2 04/03/23 11:38 Discharge Plan Discharge Patient Disposition: Home Condition: Stable Prescriptions: New azithromycin [Zithromax] 500 mg tablet 500 mg PO DAILY 2 Days Qty: 2 0RF cefdinir 300 mg capsule 300 mg PO BID Qty: 14 0RF Continued aspirin [Adult Aspirin Regimen] 81 mg tablet,delayed release (DR/EC) 81 mg PO DAILY potassium chloride 10 mEq tablet extended release 20 meq PO DAILY Qty: 180 2RF carvedilol 6.25 mg tablet 6.25 mg PO BID Qty: 180 3RF spironolactone 25 mg tablet 25 mg PO DAILY Entresto 49-51 mg tablet 1 tab PO 2XD furosemide 40 mg tablet 40 mg PO DAILY Discharge Orders: Discharge Order (Routine); Ordered 04/03/23 Ordered By: David Rea Referrals: Ashley Vu FNP [Primary Care Provider] - 4-7 days Discharge Diet: Regular Discharge Activity: Increase activity as tolerated Patient Instructions: Opioid Safety Activity Restrictions/Additional Instructions: Take all meds as prescribed. Follow up with PCP in 4-7 days. Return for any concers. Discharge Attestations Time Spent in Discharge Care*: greater than 30 min Quality Metrics Clinical Quality Measures [ No reported AMI, CVA or VTE this stay] Coding Level of Care Code 53409 Total time (in minutes) for Discharge: 35 Diagnoses Pneumonia J18.9 Respiratory failure J96.90
--- NOTE | 2023-04-03 14:04 | PC.NURSE ---
discharge instructions given and explained.pt verb understanding of instructions.discharged via w/c to exit at this time.s.o. to drive pt home
== END 2023-04-03 14:05 | disposition home or self-care (01) ==
LOC: ER 23:17 → CSU 23:20
PROVIDERS: Internal Medicine; Admitting Provider Internal Medicine; Emergency Provider Nurse Practitioner; PCP Nurse Practitioner Family; Visit Provider Internal Medicine
DX: J18.9 Pneumonia, unspecified organism (principal); J96.90 Respiratory failure, unspecified, unspecified whether with hypoxia or hypercapnia; I11.0 Hypertensive heart disease with heart failure; I50.22 Chronic systolic (congestive) heart failure; Z79.82 Long term (current) use of aspirin; G47.33 Obstructive sleep apnea (adult) (pediatric); E78.5 Hyperlipidemia, unspecified; Z87.891 Personal history of nicotine dependence
CPT/HCPCS: 36415; 71045; 80053; 83605; 83880; 84145; 85025; 85378; 87040; 87426; 87804; 93005; 96365; 96367; 96372; 99285; G0378; J0456; J0696; J1644; J7050

== ENCOUNTER → 2023-07-19 11:35 | Outpatient (BNVA) | payer MEDICARE, MEDICAID, SELFPAY | PROVIDERS: PCP Nurse Practitioner Family; Visit Provider Internal Medicine Cardiovascular Disease | DX: E78.2 Mixed hyperlipidemia (principal); I42.0 Dilated cardiomyopathy; I11.0 Hypertensive heart disease with heart failure; I50.22 Chronic systolic (congestive) heart failure; G71.00 Muscular dystrophy, unspecified; Z87.891 Personal history of nicotine dependence | CPT/HCPCS: 99214 ==

== ENCOUNTER → 2024-01-22 15:25 | Outpatient (BNVA) | payer MEDICARE, MEDICAID, SELFPAY | PROVIDERS: PCP Nurse Practitioner Family; Visit Provider Internal Medicine Cardiovascular Disease | DX: I11.0 Hypertensive heart disease with heart failure (principal); I50.22 Chronic systolic (congestive) heart failure; E78.2 Mixed hyperlipidemia; I42.0 Dilated cardiomyopathy; G71.00 Muscular dystrophy, unspecified; R06.02 Shortness of breath | CPT/HCPCS: 36415; 80048; 83880; 99214 ==

== ENCOUNTER 2024-03-15 16:39 | Inpatient (IN) | payer MEDICARE, MEDICAID, SELFPAY ==
[2024-03-15] VITALS (23 sets, daily range): BP systolic 111–145; BP diastolic 67–86; PULSE 103–128; RESP 14–28; TEMP 36.7; O2SAT 90–94; BMI 30.7
--- NOTE | 2024-03-15 17:07 | ED_ITS ---
Documented by User: Yue Doe [facility] 03/15/24 18:44 HPI - Male Genitourinary 2 General: Chief complaint: ER Hold Stated complaint: high fever, blood in urine Time Seen by Provider: 03/15/24 16:56 History of Present Illness: This is a 48-year-old male with past medical history of hypertension, HFrEF, muscular dystrophy, celiac presenting today for fever, dysuria, and blood in his urine. Symptoms started about 4 days ago with small amount of blood in his urine and dysuria. Today he began having fevers up to 103. He denies nausea, vomiting, abdominal pain. Associated symptoms: Reports dysuria and hematuria; Deny vomiting Related Data Home Medications ?Medication ?Instructions ?Recorded ?Confirmed aspirin 81 mg tablet,delayed 81 mg PO DAILY 07/10/22 0 03/16/24 release (Adult Aspirin Regimen) furosemide 40 mg tablet 40 mg PO DAILY 04/03/2302/20 sacubitril 49 mg-valsartan 51 mg 1 tab PO BID 04/03/23 03/16/24 tablet (Entresto) spironolactone 25 mg tablet 25 mg PO DAILY 04/03/23 Previous Rx's ?Medication ?Instructions ?Recorded carvedilol 6.25 mg tablet 6.25 mg PO BID #180 tabs potassium chloride 10 mEq 20 meq (2 x 10 mEq) PO DAILY #180 02/01/23 tablet,extended release tabs apixaban 5 mg tablet 5 mg PO BID #60 tabs 5 diltiazem HCl 120 mg 120 mg PO DAILY #30 caps capsule,extended release 24 hr (Cardizem CD) Allergies Allergy/AdvReac Type Severity Reaction Status Date / Time gluten Allergy Severe ADR-Abdominal Verified 03/15/24 16:49 Pain Review of Systems 2 Const: Reports: fever(s), chills and malaise Card: Denies: chest pain or palpitations Resp: Denies: dyspnea GI: Denies: abdominal pain or vomiting : Reports: dysuria, urinary frequency, urinary urgency and hematuria PFSH ED 2 PFSH: Medical History (Updated 03/26/24 @ 12:17 by Paolo Madison DO) Atrial fibrillation with RVR Urinary tract infection Sepsis Hypoxemia Celiac disease Chronic systolic heart failure Muscular dystrophy diagnosed on a muscle biopsy at age 1. He cannot hold his head up even now as an adult. Cardiomyopathy EMMANUEL (obstructive sleep apnea) Hypertension Hyperlipidemia Eustachian tube dysfunction Surgical History Hx of tonsillectomy Hx of appendectomy Family History Mother Anesthesia complication Breast cancer Grandmother CAD (coronary artery disease) Cancer Dementia Grandfather CAD (coronary artery disease) Stroke Father CAD (coronary artery disease) Diabetes Hypertension Other Adrenal disease Denies family history of Clotting disorder Chronic kidney disease (CKD) Suicide Bleeding disorder Lung disease Social History Smoking and tobacco/nicotine status: never used tobacco/nicotine Alcohol intake: never Substance/Drug Use: never Physical Exam 2 Const: COMMON NORMALS: no acute distress and patient oriented x3 GENERAL APPEARANCE: cooperative HENMT: COMMON NORMALS: normocephalic and atraumatic HEAD & SCALP: n ormocephalic and atraumatic Eye: COMMON NORMALS: Equal, round and reactive pupils present, EOMs intact bilaterally and conjunctivae normal CONJUNCTIVA: Yes conjunctivae normal P UPIL: Yes Equal, round and reactive pupils present Resp: COMMON NORMALS: clear to auscultation bilaterally EFFORT & INSPECTION: Yes tachypneic AUSCULTATION: clear to auscultation bilaterally and no wheezes Cardio: RATE: tachycardic GI: COMMON NORMALS: Soft to palpation, non-tender, No hepatosplenomegaly present and no masses PALPATION: Yes Soft to palpation and Yes No hepatosplenomegaly present Neuro: COMMON NORMALS: patient oriented x3 Course 2 Vital Signs: Vital signs: Vital Signs Temperature 98.1 F 03/18/24 16:59 Pulse Rate 93 03/18/24 16:59 Respiratory Rate 16 03/18/24 16:59 Blood Pressure 122/79 03/18/24 16:59 Pulse Oximetry 95 03/18/24 16:59 Oxygen Delivery Me thod Nasal Cannula 03/18/24 15:27 Oxygen Flow Rate 3 03/18/24 13:52 Fraction of Inspir ed Oxygen 40 03/18/24 09:56 MDM - Male Medical Decision Making This is a 48-year-old male with past medical history of hypertension, HFrEF, muscular dystrophy, celiac presenting today for fever, dysuria, and blood in his urine concerning for pyelonephritis with possible early sepsis. Patient found to have a cytosis to 17, CMP unremarkable, initial troponin normal. Urinalysis with large amount of leukocytes concerning for infection. Patient tachycardic to 130s with findings on EKG concerning for atrial flutter although difficult to ascertain given the fast rate. Started patient on diltiazem drip for rate control. Chest x-ray unremarkable, CT abdomen and pelvis without hydronephrosis or stones, bladder wall thickening suggestive of infection. Patient started on Zosyn. Patient was discussed with on-call hospitalist for admission for pyelonephritis and possible early sepsis. Lab Data 03/18/24 11:18 03/18/24 09:51 Radiology Impressions Chest X-Ray 03/15/24 17:09 IMPRESSION: No acute cardiopulmonary disease. Abdomen/Pelvis CT 03/15/24 17:10 IMPRESSION: 1. Suggested diffuse bladder wall thickening and adjacent inflammatory change. Correlate with urinalysis for possible cystitis. 2. No other evidence of acute intra-abdominal or pelvic process. Chest CT 03/16/24 15:20 IMPRESSION: Small left lingual wedge-shaped consolidative opacity with air bronchograms which may represent small focal pneumonia. Laboratory Results WBC 16.23 10^3/uL (3.29-11.43) H 03/16/24 04:19 RBC 4.75 10^6/uL (3.85-5.65) 03/16/24 04:19 Hgb 13.70 g/dL (11.27-16.99) 03/16/24 04:19 Hct 43.2 % (37-53) 03/16/24 04:19 MCV 90.9 fl (82-101) 03/16/24 04:19 MCH 28.8 pg (27-33) 03/16/24 04:19 MCHC 31.7 g/dL (30-55) 03/16/24 04:19 RDW 12.5 % (12.1-15.1) 03/16/24 04:19 Plt Count 254 10^3/cmm (157-399) 03/16/24 04:19 MPV 8.8 fL (7.4-10.4) 03/16/24 04:19 Neut % (Auto) 74.1 % 03/16/24 04:19 Lymph % (Auto) 11.8 % 03/16/24 04:19 [place] % (Auto) 12.1 % 03/16/24 04:19 Eos % (Auto) 1.3 % 03/16/24 04:19 Baso % (Auto) 0.2 % 03/16/24 04:19 Neut # (Auto) 12.01 10^3/uL (1.8-7.7) H 03/16/24 04:19 Lymph # (Auto) 1.9 10^3/uL (0.8-4.8) 03/16/24 04:19 [place] # (Auto) 2.0 10^3/uL (0.2-0.9) H 03/16/24 04:19 Eos # (Auto) 0.2 10^3/uL (0.0-0.8) 03/16/24 04:19 Baso # (Auto) 0.0 10^3/uL (0.0-0.1) 03/16/24 04:19 Nucleated RBC % (auto) 0 % 03/16/24 04:19 Nucleated RBCs # 0.0 /100WBC 03/16/24 04:19 PT 12.70 SECONDS (12.1-14.9) 03/15/24 17:26 INR 0.89 (0.8-1.2) 03/15/24 17:26 APTT 31.3 SECONDS (23.9-36.7) 03/15/24 17:26 Specimen Type Arterial 03/16/24 05:30 Sample Site Radial, left 03/16/24 05:30 ABG pH 7.35 (7.35-7.45) 03/16/24 05:30 ABG pCO2 59.3 mmHg (35-45) H 03/16/24 05:30 ABG pO2 89.2 mmHg (80.0-100.0) 03/16/24 05:30 ABG HCO3 33.0 mmol/L (22-26) H 03/16/24 05:30 ABG O2 Saturation 97.0 03/16/24 05:30 ABG Base Excess 5.5 mmol/L (-2.0-2.0) H 03/16/24 05:30 Alexandre Test Pos 03/16/24 05:30 A-a O2 Gradient Not Reportable 03/16/24 05:30 Hematocrit 44.0 % (42-52) 03/16/24 05:30 Hgb O2 Saturation 95.3 % (95-100) 03/16/24 05:30 Carboxyhemoglobin 1.3 %THgb (0.4-20.1) 03/16/24 05:30 Methemoglobin 0.4 % (0.4-1.5) 03/16/24 05:30 Total Hemoglobin 14.3 g/dL (14-18) 03/16/24 05:30 Sodium 141.0 mmol/L (131-143) 03/16/24 05:30 Potassium 3.4 mmol/L (3.5-5.0) L 03/16/24 05:30 Glucose 118.0 mg/dL (70-115) H 03/16/24 05:30 Ionized Calcium 1.2 mmol/L (1.1-1.4) 03/16/24 05:30 O2 Delivery Device Nc 03/16/24 05:30 O2 Liters/Min 3.5 % 03/16/24 05:30 [employer] Helper ID [id number] 03/16/24 05:30 Sodium 140 mmol/L (136-145) 03/16/24 04:19 Potassium 3.6 mmol/L (3.5-5.1) 03/16/24 04:19 Chloride 103 mmol/L (98-107) 03/16/24 04:19 Carbon Dioxide 29 mmol/L (22-29) 03/16/24 04:19 Anion Gap 11.6 (5-19) 03/16/24 04:19 BUN 9 mg/dL (6-20) 03/16/24 04:19 Creatinine 0.5 mg/dL (0.7-1.2) L 03/16/24 04:19 GFR Calculation 177.5 mL/min (90-130) H 03/16/24 04:19 Glucose 125 mg/dL (65-115) H 03/16/24 04:19 Estimat Average Glucose 123 03/16/24 04:19 Hemoglobin A1c 5.9 % (4.0-6.0) 03/16/24 04:19 Calculated Osmolality 290 mOsm/kg (285-295) 03/16/24 04:19 Lactic Acid 1.3 mmol/L (0.5-2.2) 03/15/24 17: Calcium 8.6 mg/dL (8.5-10.5) 03/16/24 04:19 Phosphorus 3.1 mg/dL (2.5-4.5) 03/16/24 04:19 Magnesium 2.0 mg/dL (1.7-2.3) 03/16/24 04:19 Total Bilirubin 0.4 mg/dL (0.15-1.2) 03/16/24 04:19 AST 9 U/L (0-40) 03/16/24 04:19 ALT 15 U/L (0-41) 03/16/24 04:19 Alkaline Phosphatase 71 U/L (40-130) 03/16/24 04:19 Troponin T Baseline 13 ng/L (0-15) 03/15/24 17: Troponin T 120 Minute 9.13 ng/L (0-15) 03/15/24 19:29 Delta Troponin T -3.87 ABS# (0-10) L 03/15/24 19:29 Troponin T Hi Sens 6Hr 9.59 ng/L (0-15) 03/15/24 23:30 Troponin T Hi Sens 6Hr Delta -3.41 ng/L (0-12) L 03/15/24 23:30 Total Protein 6.2 g/dL (6.6-8.7) L 03/16/24 04:19 Albumin 3.2 g/dL (3.5-5.2) L 03/16/24 04:19 Globulin 3.0 g/dL (1.3-4.6) 03/16/24 04:19 TSH 0.54 uIU/mL (0.27-4.20) 03/16/24 04:19 Free T4 1.12 ng/dL (0.82-1.77) 03/16/24 04:19 Urine Color Yellow (Yellow) 03/15/24 17:29 Urine Appearance Clear (CLEAR) 03/15/24 17: Urine pH 8.5 (5-7) A 03/15/24 17: Ur Specific [place] 1.018 (1.005-1.030) 03/15/24 17: Urine Protein Trace (Negative) A 03/15/24 17: Urine Glucose (UA) Negative (Normal) 03/15/24 17: Urine Ketones Negative (Negative) 03/15/24 17: Urine Blood Negative (Negative) 03/15/24 17: Urine Nitrate Negative (Negative) 03/15/24 17: Urine Bilirubin Negative (Negative) 03/15/24 17: Urine Urobilinogen 1.0 mg/dL (Negative) 03/15/24 17: Ur Leukocyte Esterase 1+ (Negative) A 03/15/24 17: Urine RBC 3-5 /hpf (0-2) 03/15/24 17: Urine WBC 51-100 /hpf (0-5) H 03/15/24 17: Ur Squamous Epith Cells 0-5 /hpf (0-5) 03/15/24 17: Amorphous Sediment Not Reportable 03/15/24 17: Urine Bacteria None seen /hpf (NONE) 03/15/24 17: Hyaline Casts 0-4 /lpf H 03/15/24 17:29 C. trachomatis (PCR) Not detected 03/15/24 17: N. gonorrhoeae (PCR) Not detected 03/15/24 17: Discharge Plan Discharge Patient Disposition: Admitted As Inpatient Admit Provider: Pérez Baer Clinical Impression: Atrial fibrillation with RVR, Acute pyelonephritis, Hypertension, Cardiomyopathy Condition: Stable Discharge Diet: Advance as tolerated, As Directed and Cardiac Discharge Activity: Resume usual activity and Increase activity as tolerated Coding Level of Care Code ED Waiter/Waitress Formal for Chg Fwd Documented by User: Paolo Madison DO 03/26/24 12:17 HPI - Male Genitourinary 2 General: Chief complaint: ER Hold Stated complaint: high fever, blood in urine Time Seen by Provider: 03/15/24 16:56 Related Data Home Medications ?Medication ?Instructions ?Recorded ?Confirmed aspirin 81 mg tablet,delayed 81 mg PO DAILY 07/10/22 0 03/16/24 release (Adult Aspirin Regimen) furosemide 40 mg tablet 40 mg PO DAILY 04/03/2302/20 sacubitril 49 mg-valsartan 51 mg 1 tab PO BID 04/03/23 03/16/24 tablet (Entresto) spironolactone 25 mg tablet 25 mg PO DAILY 04/03/23 Previous Rx's ?Medication ?Instructions ?Recorded carvedilol 6.25 mg tablet 6.25 mg PO BID #180 tabs potassium chloride 10 mEq 20 meq (2 x 10 mEq) PO DAILY #180 02/01/23 tablet,extended release tabs apixaban 5 mg tablet 5 mg PO BID #60 tabs 5 diltiazem HCl 120 mg 120 mg PO DAILY #30 caps capsule,extended release 24 hr (Cardizem CD) Allergies Allergy/AdvReac Type Severity Reaction Status Date / Time gluten Allergy Severe ADR-Abdominal Verified 03/15/24 16:49 Pain PFSH ED 2 PFSH: Medical History (Updated 03/26/24 @ 12:17 by Paolo Madison DO) Atrial fibrillation with RVR Urinary tract infection Sepsis Hypoxemia Celiac disease Chronic systolic heart failure Muscular dystrophy diagnosed on a muscle biopsy at age 1. He cannot hold his head up even now as an adult. Cardiomyopathy EMMANUEL (obstructive sleep apnea) Hypertension Hyperlipidemia Eustachian tube dysfunction Surgical History Hx of tonsillectomy Hx of appendectomy Family History Mother Anesthesia complication Breast cancer Grandmother CAD (coronary artery disease) Cancer Dementia Grandfather CAD (coronary artery disease) Stroke Father CAD (coronary artery disease) Diabetes Hypertension Other Adrenal disease Denies family history of Clotting disorder Chronic kidney disease (CKD) Suicide Bleeding disorder Lung disease Social History Smoking and tobacco/nicotine status: never used tobacco/nicotine Alcohol intake: never Substance/Drug Use: never Physical Exam 2 Cardio: RHYTHM: abnormal rhythm irregularly irregular Course 2 Vital Signs: Vital signs: Vital Signs Temperature 98.1 F 03/18/24 16:59 Pulse Rate 93 03/18/24 16:59 Respiratory Rate 16 03/18/24 16:59 Blood Pressure 122/79 03/18/24 16:59 Pulse Oximetry 95 03/18/24 16:59 Oxygen Delivery Me thod Nasal Cannula 03/18/24 15:27 Oxygen Flow Rate 3 03/18/24 13:52 Fraction of Inspir ed Oxygen 40 03/18/24 09:56 [facility] - Male Medical Decision Making This is a 48-year-old male with past medical history of hypertension, HFrEF, muscular dystrophy, celiac presenting today for fever, dysuria, and blood in his urine concerning for pyelonephritis with possible early sepsis. Patient found to have a cytosis to 17, CMP unremarkable, initial troponin normal. Urinalysis with large amount of leukocytes concerning for infection. Patient tachycardic to 130s with findings on EKG concerning for atrial flutter although difficult to ascertain given the fast rate. Started patient on diltiazem drip for rate control. Chest x-ray unremarkable, CT abdomen and pelvis without hydronephrosis or stones, bladder wall thickening suggestive of infection. Patient started on Zosyn. Patient was discussed with on-call hospitalist for admission for pyelonephritis and possible early sepsis. Patient seen and evaluated in conjunction with Dr. Jeffrey. Agree with history assessment and plan. Medical Records I reviewed the patient's medical records. Lab Data I reviewed the patient's lab results. 03/18/24 11:18 03/18/24 09:51 Radiology Impressions Chest X-Ray 03/15/24 17:09 IMPRESSION: No acute cardiopulmonary disease. Abdomen/Pelvis CT 03/15/24 17:10 IMPRESSION: 1. Suggested diffuse bladder wall thickening and adjacent inflammatory change. Correlate with urinalysis for possible cystitis. 2. No other evidence of acute intra-abdominal or pelvic process. Chest CT 03/16/24 15:20 IMPRESSION: Small left lingual wedge-shaped consolidative opacity with air bronchograms which may represent small focal pneumonia. Laboratory Results WBC 16.23 10^3/uL (3.29-11.43) H 03/16/24 04:19 RBC 4.75 10^6/uL (3.85-5.65) 03/16/24 04:19 Hgb 13.70 g/dL (11.27-16.99) 03/16/24 04:19 Hct 43.2 % (37-53) 03/16/24 04:19 MCV 90.9 fl (82-101) 03/16/24 04:19 MCH 28.8 pg (27-33) 03/16/24 04:19 MCHC 31.7 g/dL (30-55) 03/16/24 04:19 RDW 12.5 % (12.1-15.1) 03/16/24 04:19 Plt Count 254 10^3/cmm (157-399) 03/16/24 04:19 MPV 8.8 fL (7.4-10.4) 03/16/24 04:19 Neut % (Auto) 74.1 % 03/16/24 04:19 Lymph % (Auto) 11.8 % 03/16/24 04:19 [place] % (Auto) 12.1 % 03/16/24 04:19 Eos % (Auto) 1.3 % 03/16/24 04:19 Baso % (Auto) 0.2 % 03/16/24 04:19 Neut # (Auto) 12.01 10^3/uL (1.8-7.7) H 03/16/24 04:19 Lymph # (Auto) 1.9 10^3/uL (0.8-4.8) 03/16/24 04:19 [place] # (Auto) 2.0 10^3/uL (0.2-0.9) H 03/16/24 04:19 Eos # (Auto) 0.2 10^3/uL (0.0-0.8) 03/16/24 04:19 Baso # (Auto) 0.0 10^3/uL (0.0-0.1) 03/16/24 04:19 Nucleated RBC % (auto) 0 % 03/16/24 04:19 Nucleated RBCs # 0.0 /100WBC 03/16/24 04:19 PT 12.70 SECONDS (12.1-14.9) 03/15/24 17: INR 0.89 (0.8-1.2) 03/15/24 17:26 APTT 31.3 SECONDS (23.9-36.7) 03/15/24 17:26 Specimen Type Arterial 03/16/24 05:30 Sample Site Radial, left 03/16/24 05:30 ABG pH 7.35 (7.35-7.45) 03/16/24 05:30 ABG pCO2 59.3 mmHg (35-45) H 03/16/24 05:30 ABG pO2 89.2 mmHg (80.0-100.0) 03/16/24 05:30 ABG HCO3 33.0 mmol/L (22-26) H 03/16/24 05:30 ABG O2 Saturation 97.0 03/16/24 05:30 ABG Base Excess 5.5 mmol/L (-2.0-2.0) H 03/16/24 05:30 Alexandre Test Pos 03/16/24 05:30 A-a O2 Gradient Not Reportable 03/16/24 05:30 Hematocrit 44.0 % (42-52) 03/16/24 05:30 Hgb O2 Saturation 95.3 % (95-100) 03/16/24 05:30 Carboxyhemoglobin 1.3 %THgb (0.4-20.1) 03/16/24 05:30 Methemoglobin 0.4 % (0.4-1.5) 03/16/24 05:30 Total Hemoglobin 14.3 g/dL (14-18) 03/16/24 05:30 Sodium 141.0 mmol/L (131-143) 03/16/24 05:30 Potassium 3.4 mmol/L (3.5-5.0) L 03/16/24 05:30 Glucose 118.0 mg/dL (70-115) H 03/16/24 05:30 Ionized Calcium 1.2 mmol/L (1.1-1.4) 03/16/24 05:30 O2 Delivery Device Nc 03/16/24 05:30 O2 Liters/Min 3.5 % 03/16/24 05:30 [employer] Helper ID [id number] 03/16/24 05:30 Sodium 140 mmol/L (136-145) 03/16/24 04:19 Potassium 3.6 mmol/L (3.5-5.1) 03/16/24 04:19 Chloride 103 mmol/L (98-107) 03/16/24 04:19 Carbon Dioxide 29 mmol/L (22-29) 03/16/24 04:19 Anion Gap 11.6 (5-19) 03/16/24 04:19 BUN 9 mg/dL (6-20) 03/16/24 04:19 Creatinine 0.5 mg/dL (0.7-1.2) L 03/16/24 04:19 GFR Calculation 177.5 mL/min (90-130) H 03/16/24 04:19 Glucose 125 mg/dL (65-115) H 03/16/24 04:19 Estimat Average Glucose 123 03/16/24 04:19 Hemoglobin A1c 5.9 % (4.0-6.0) 03/16/24 04:19 Calculated Osmolality 290 mOsm/kg (285-295) 03/16/24 04:19 Lactic Acid 1.3 mmol/L (0.5-2.2) 03/15/24 17:26 Calcium 8.6 mg/dL (8.5-10.5) 03/16/24 04:19 Phosphorus 3.1 mg/dL (2.5-4.5) 03/16/24 04:19 Magnesium 2.0 mg/dL (1.7-2.3) 03/16/24 04:19 Total Bilirubin 0.4 mg/dL (0.15-1.2) 03/16/24 04:19 AST 9 U/L (0-40) 03/16/24 04:19 ALT 15 U/L (0-41) 03/16/24 04:19 Alkaline Phosphatase 71 U/L (40-130) 03/16/24 04:19 Troponin T Baseline 13 ng/L (0-15) 03/15/24 17:26 Troponin T 120 Minute 9.13 ng/L (0-15) 03/15/24 19:29 Delta Troponin T -3.87 ABS# (0-10) L 03/15/24 19:29 Troponin T Hi Sens 6Hr 9.59 ng/L (0-15) 03/15/24 23:30 Troponin T Hi Sens 6Hr Delta -3.41 ng/L (0-12) L 03/15/24 23:30 Total Protein 6.2 g/dL (6.6-8.7) L 03/16/24 04:19 Albumin 3.2 g/dL (3.5-5.2) L 03/16/24 04:19 Globulin 3.0 g/dL (1.3-4.6) 03/16/24 04:19 TSH 0.54 uIU/mL (0.27-4.20) 03/16/24 04:19 Free T4 1.12 ng/dL (0.82-1.77) 03/16/24 04:19 Urine Color Yellow (Yellow) 03/15/24 17: Urine Appearance Clear (CLEAR) 03/15/24 17: Urine pH 8.5 (5-7) A 03/15/24: Ur Specific [place] 1.018 (1.005-1.030) 03/15/24: Urine Protein Trace (Negative) A 03/15/24 17 Urine Glucose (UA) Negative (Normal) 03/15/24: Urine Ketones Negative (Negative) 03/15/24: Urine Blood Negative (Negative) 03/15/24: Urine Nitrate Negative (Negative) 03/15/24 17: Urine Bilirubin Negative (Negative) 03/15/24: Urine Urobilinogen 1.0 mg/dL (Negative) 03/15/24 17: Ur Leukocyte Esterase 1+ (Negative) A 03/15/24 17: Urine RBC 3-5 /hpf (0-2) 03/15/24 17: Urine WBC 51-100 /hpf (0-5) H 03/15/24 17: Ur Squamous Epith Cells 0-5 /hpf (0-5) 03/15/24: Amorphous Sediment Not Reportable 03/15/24 17: Urine Bacteria None seen /hpf (NONE) 03/15/24 17: Hyaline Casts 0-4 /lpf H 03/15/24 17: C. trachomatis (PCR) Not detected 03/15/24 17: N. gonorrhoeae (PCR) Not detected 03/15/24 17: All radiology interpretation(s) finalized by discharge Discharge Plan Discharge Patient Disposition: Admitted As Inpatient Admit Provider: Pérez Baer Clinical Impression: Atrial fibrillation with RVR, Acute pyelonephritis, Hypertension, Cardiomyopathy Condition: Stable Discharge Diet: Advance as tolerated, As Directed and Cardiac Discharge Activity: Resume usual activity and Increase activity as tolerated Coding Level of Care Code ED Waiter/Waitress Formal for Stephanie Ma
--- NOTE | 2024-03-15 17:09 | XRR_ITS ---
PROCEDURE INFORMATION: Exam: XR Chest Exam date and time: 03/15/2024 5:16 PM Age: 48 years old Clinical indication: Fever TECHNIQUE: Imaging protocol: Radiologic exam of the chest. Views: 1 view. COMPARISON: CR XR chest 1V portable [id number] 04/02/2023 9:11 PM FINDINGS: Lungs: Mild bibasilar atelectasis and/or scarring. No pulmonary consolidation. Pleural spaces: No pleural effusion or pneumothorax. Heart/Mediastinum: The cardiomediastinal silhouette is within normal limits. Bones/joints: No acute osseous abnormalities are seen. XR/XR chest 1V portable [id number] IMPRESSION: No acute cardiopulmonary disease.
--- NOTE | 2024-03-15 17:10 | CTR_ITS ---
PROCEDURE INFORMATION: Exam: CT Abdomen And Pelvis Without Contrast Exam date and time: 03/15/2024 5:39 PM Age: 48 years old Clinical indication: Other: Dysuria fever and blood in urineappy; Prior surgery; Surgery date: 6+ months; Additional info: Dysuria fever and blood in urine TECHNIQUE: Imaging protocol: Computed tomography of the abdomen and pelvis without contrast. Radiation optimization: All CT scans at this facility use at least one of these dose optimization techniques: automated exposure control; mA and/or kV adjustment per patient size (includes targeted exams where dose is matched to clinical indication); or iterative reconstruction. COMPARISON: CR (CHEST, ) 03/15/2024 5:16 PM RADIATION DOSE METRICS: Total DLP (mGy-cm): 1033.61 FINDINGS: Lungs: Mild bibasilar atelectasis and/or scarring. Heart: Heart size is within normal limits. There is no pericardial effusion or pericardial thickening. Liver: Mild fatty infiltration of the liver. The liver is otherwise normal. Gallbladder and biliary ducts: The gallbladder is contracted. There is no ductal dilatation. Pancreas: The pancreas is normal. Spleen: The spleen is normal. Adrenal glands: The adrenal glands are normal. Kidneys and ureters: Punctate nonobstructing right mid renal calculus. No other renal calcifications. No hydronephrosis. Stomach and bowel: There is no large or small bowel obstruction. There is no evidence of bowel wall thickening. Appendix: A normal appendix is not identified. There is no secondary evidence of acute appendicitis. Intraperitoneal space: No inflammatory changes are identified. There is no free fluid or fluid collection seen. There is no pneumoperitoneum. Vasculature: The aorta is normal in course and caliber. No significant atherosclerotic calcifications are present. Lymph nodes: No enlarged lymph nodes are identified. Urinary bladder: The urinary bladder is decompressed. There is diffuse bladder wall thickening which may be in part related to underdistention. There is suggestion of mild inflammatory changes adjacent to the urinary bladder. Reproductive: There is mild prostatomegaly. Bones/joints: No acute osseous abnormalities are seen. Soft tissues: Diffuse atrophy of all visualized musculature. CT/CT kidney stone [id number] IMPRESSION: 1. Suggested diffuse bladder wall thickening and adjacent inflammatory change. Correlate with urinalysis for possible cystitis. 2. No other evidence of acute intra-abdominal or pelvic process.
--- NOTE | 2024-03-15 17:11 | ECG_ITS ---
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 Measurements Intervals [place] Rate: 128 P: 0 MO: 0 QRS: 9 QRSD: 84 T: 59 QT: 303 QTc: 443 Interpretive Statements SINUS TACHYCARDIA NONSPECIFIC T-WAVE ABNORMALITY Compared to ECG 04/03/2023 03:15:16 T-wave abnormality now present Left ventricular hypertrophy no longer present ST (T wave) deviation no longer present Electronically Signed On 03-15-2024 22:56:17 RN MATERNITY by Juma Mansfield M.D. [email or web address]
[2024-03-15 17:35] LABS: Basophils % 0.2 %; Eosinophils # 0.2 10^3/uL (0.0-0.8); Eosinophils % 1.3 %; Hematocrit 47.2 % (37-53); Lymphocytes # 1.2 10^3/uL (0.8-4.8); Lymphocytes % 6.7 %; Mean Corpuscular HGB Conc 31.8 g/dL (30-55); Mean Corpuscular Hemoglobin 28.5 pg (27-33); Mean Corpuscular Volume 89.6 fl (82-101); Mean Platelet Volume 8.8 fL (7.4-10.4); Monocytes # 1.8 10^3/uL (0.2-0.9); Monocytes % 10.3 %; Neutrophils # 14.09 10^3/uL (1.8-7.7); Nucleated Red Blood Cells % 0 %; Platelet Count 297 10^3/cmm (157-399); Red Blood Count 5.27 10^6/uL (3.85-5.65); Red Cell Distribution Width 12.5 % (12.1-15.1)
[2024-03-15 17:39] LABS: Bilirubin Urine Negative (Negative); Blood Urine Negative (Negative); Glucose Urine UA Negative (Normal); Ketones Urine Negative (Negative); Leukocyte Esterase Urine 1+ (Negative); Nitrate Urine Negative (Negative); Protein Urine Trace (Negative); Specific Gravity, Urine 1.018 (1.005-1.030); Urine Appearance Clear (CLEAR); Urine Color Yellow (Yellow); pH Urine 8.5 (5-7)
[2024-03-15 17:44] LABS: Add Urine Microscopic? YES; Bacteria Urine None Seen /hpf; Hyaline Casts Urine 0-4 /lpf; Squamous Epithelial Cell Urine 0-5 /hpf (0-5); WBC Urine 51-100 /hpf (0-5)
[2024-03-15 17:46] LABS: Add Urine Culture? Yes
[2024-03-15 17:57] LABS: Lactic Sepsis W/Reflex 1.3 mmol/L (0.5-2.2)
[2024-03-15 17:58] LABS: Alanine Aminotransferase 20 U/L (0-41); Albumin Level 3.8 g/dL (3.5-5.2); Alkaline Phosphatase 87 U/L (40-130); Aspartate Amino Transferase 14 U/L (0-40); Blood Urea Nitrogen 10 mg/dL (6-20); Carbon Dioxide 33 mmol/L (22-29); Chloride 100 mmol/L (98-107); Creatinine Clr Calc Pharmacy 178.5275; Globulin 2.6 g/dL (1.3-4.6); Glomerular Filtration Rate 120.4 mL/min (90-130); Glucose 127 mg/dL (65-115); Osmolality Calculated 291 mOsm/kg (285-295); Sodium 140 mmol/L (136-145); Total Bilirubin 0.2 mg/dL (0.15-1.2); Total Protein 6.4 g/dL (6.6-8.7)
[2024-03-15 17:59] LABS: Troponin(5th) Baseline 13 ng/L (0-15)
[2024-03-15 18:00] LABS: Anion Gap 11.5 (5-19); Potassium 4.5 mmol/L (3.5-5.1)
--- NOTE | 2024-03-15 18:04 | PC.NURSE ---
THIS NURSE WENT TO ADMINISTER ORDERED 20MG CARDIZEM TO PT. PT FAMILY QUESTIONED ORDER AND STATED WHY ARE WE TRYING TO SLOW HIS HEART RATE DOWN WHEN HE TAKES MEDICATION TO SPEED IT UP? THIS NURSE SPOKE WITH DR. BROWN. PHYSICIAN SPOKE WITH PT. PT STATED TO PHYSICIAN THAT HE WOULD LIKE TO TRY AND SLOW HIS HEART RATE DOWN ON HIS OWN BEFORE TRYING TO START THE MEDICATION.
[2024-03-15] MEDS: piperacillin-tazobactam 3.375 GM in sodium chloride 0.9% (plus) 50 ML IV (18:23)
--- NOTE | 2024-03-15 19:02 | PC.NURSE ---
pt refused Cardizem gtt for second time, states HR is at baseline; Dr. Madison notified
--- NOTE | 2024-03-15 19:27 | P.HP_ITS ---
Providers/Chief Complaint 2 Admitting Physician: Genaro Joyce MD Primary Care Provider: Ashley Vu Chief Complaint: high fever, blood in urine History of Present Illness Mrs.Vicky Vigil (Mother): [phone] Mr. Noe Vigil (Father) [phone] Kelly Olivier: [phone]. Yg Vigil is a 48 yo man w/ muscular dysstrophy dx'ed at age 1, celiac disease, chronic HFrEF, (EF of 35-40%), HTN, HLD, EMMANUEL not on CPAP, who presents to the ED on 03/15/2022 w/ complaints of blood in his urine for the last 2 days and a temperature that ranged between 100.7F and 103F today that he checked w/ a digital forehead thermometer. He endorsed dysuria, increased urinary urgency and frequency. He denies abdominal pain, n/v, diarrhea, melena, hematochezia. In the ED, the patient's vitals were significant for tachycardia and tachypnea. His labs showed were significant for a leukocytosis of 17.4 and a UA concerning for a UTI. His CXR was negative. A CT abdomen and pelvis was done that showed concerns for cystitis, but no other evidence of an acute intra-abdominal or pelvic process. Twenty milligrams of IV Diltiazem was ordered but the patient declined it because he felt that it would decrease his HR too much. While intervewing him, he endorsed feeling short of breath at this time and would like O2. His O2 sat was 89% while interviewing him and he had mildly increased work of breathing, so he was placed on 2L NC O2. He also declined 20mg IV Dilt bolus, but agreed to the drip because he felt that it would not decrease his HR too quickly, so he was started on Diltiazem drip. Review of Systems 2 Const: Reports: fever(s), chills, body aches, fatigue and malaise; Denies: change in appetite Eyes: Denies: change in vision ENMT: Reports: nasal discharge (chronic); Denies: odynophagia or ear or mastoid pain Card: Reports: chest pain; Denies: palpitations Resp: Denies: dyspnea, productive cough, non-productive cough or wheezing GI: Denies: abdominal pain, nausea, vomiting, diarrhea, constipation, hematochezia or melena : Reports: dysuria, urinary frequency, urinary urgency and hematuria; Denies: difficulty urinating Musc: Reports: back pain (chronic back pain ) Skin/Breast: Denies: rash or new lesions Neuro: Reports: dizziness; Denies: headache(s) Psych: Denies: anxiety, depression, suicidal ideation or homicidal ideation Endo: Reports: cold intolerance; Denies: heat intolerance Rodo/Lymph: Denies: easy bruising or easy bleeding Medications/Allergies Home Medications Medication Instructions Recorded Confirmed Last Taken Type aspirin 81 mg tablet,delayed 81 mg PO DAILY 07/10/22 07/19/23 04/02/23 History release (Adult Aspirin Regimen) carvedilol 6.25 mg tablet 6.25 mg PO BID #180 tabs 02/01/23 07/19/23 04/02/23 14:00 Rx potassium chloride 10 mEq 20 meq (2 x 10 mEq) PO DAILY #180 02/01/23 07/19/23 04/02/23 14:00 Rx tablet,extended release tabs furosemide 40 mg tablet 40 mg PO DAILY 04/03/23 07/19/23 04/01/23 History sacubitril 49 mg-valsartan 51 mg 1 tab PO 2XD 04/03/23 07/19/23 04/02/23 14:00 History tablet (Entresto) spironolactone 25 mg tablet 25 mg PO DAILY 04/03/23 07/19/23 04/02/23 14:00 History empagliflozin 10 mg tablet 10 mg PO DAILY 30 days #30 tabs 01/22/24 01/22/24 Unknown Rx (Jardiance) Allergies Allergy/AdvReac Type Severity Reaction Status Date / Time gluten Allergy Severe ADR-Abdominal Verified 03/15/24 16:49 Pain PFSH Acute 2 PFSH: Medical History (Updated 03/15/24 @ 22:33 by Madina Joyce MD) Celiac disease Chronic systolic heart failure Muscular dystrophy diagnosed on a muscle biopsy at age 1. He cannot hold his head up even now as an adult. Cardiomyopathy EMMANUEL (obstructive sleep apnea) Hypertension Hyperlipidemia Eustachian tube dysfunction Surgical History Hx of tonsillectomy Hx of appendectomy Family History Mother Anesthesia complication Breast cancer Grandmother CAD (coronary artery disease) Cancer Dementia Grandfather CAD (coronary artery disease) Stroke Father CAD (coronary artery disease) Diabetes Hypertension Other Adrenal disease Denies family history of Clotting disorder Chronic kidney disease (CKD) Suicide Bleeding disorder Lung disease Social History Smoking and tobacco/nicotine status: never used tobacco/nicotine Alcohol intake: never Substance/Drug Use: never Vitals/I&O/Wt Last Vital Signs Temp 98.0 F 03/15/24 16:45 Pulse 124 H 03/15/24 18:24 Resp 28 H 03/15/24 18:24 BP 136/71 03/15/24 18:24 Pulse Ox 91 03/15/24 18:24 O2 Del Method Room Air 03/15/24 16:45 Weight last 48 hrs Weight 114.305 kg Physical Exam 2 Const: GENERAL APPEARANCE: cooperative; not comfortable ORIENTATION/CONSCIOUSNESS: Yes awake, Yes oriented to person, Yes oriented to place and Yes oriented to time HENMT: HEAD & SCALP: normocephalic and atraumatic NOSE: Normal external nose present EXTERNAL EAR: Yes external ears normal MOUTH: Normal oral and palatal mucosa present THROAT: posterior oropharynx normal Eye: OTHER: PEERL, EOMI, normal conjunctiva bilaterally Neck/C-Spine: GENERAL: Yes normal visual inspection and Yes trachea midline THYROID: Thyroid normal CAROTIDS: No bruit CERVICAL SPINE: Yes cervical ROM normal Lymph: OTHER: No cervical or supra clavicular LAD. Resp: OTHER: CTAB w/ no w/r/r. Cardio: OTHER: Tachycardic with irregular rate and rhythm, no rubs, gallops or clicks. 2+ radial and DP pulses appreciated. GI: OTHER: BS+, NT, ND, no guarding, no rigidity, no rebound tenderness, no hepatosplenomegaly. Extremity: GENERAL: No clubbing, No cyanosis and No edema Neuro: CRANIAL NERVES: Yes CN normal except as noted SPEECH: speech normal SENSORY EXAM: No sensory level loss detected MOTOR EXAM: 5/5 motor strength present throughout Psych: APPEARANCE: Yes grossly normal ATTITUDE: Yes calm and Yes engaged ACTIVITY/MOTOR BEHAVIOR: Yes appropriate eye contact SPEECH: Yes normal speech MOOD & AFFECT: Yes euthymic mood ATTENTION/CONCENTRATION: Yes attention grossly intact MEMORY/COGNITION: Yes memory grossly intact Skin: GENERAL SKIN EXAM: no rashes or lesions noted Data 03/15/24 17:26 03/15/24 17:26 Micro: Microbiology 03/15/24 17:28 Blood Culture - Preliminary Blood SPECIMEN COLLECTED 03/15/24 17:26 Blood Culture - Preliminary Blood SPECIMEN COLLECTED A&P Assessment and plan (1) Chronic systolic heart failure: (2) Sepsis: (3) Urinary tract infection: (4) Muscular dystrophy: (5) Atrial fibrillation with RVR: Plan Yg Vigil is a 48 yo man w/ muscular dysstrophy dx'ed at age 1, celiac disease, chronic HFrEF, (EF of 35-40%), HTN, HLD, EMMANUEL not on CPAP, who presents to the ED on 03/15/2022 w/ complaints of blood in his urine for the last 2 days and a temperature that ranged between 100.7F and 103F today that he checked w/ a digital forehead thermometer. #Sepsis: secondary to a UTI - Continue Zosyn. Give NS 500cc x 1 - F/u BCx, UCx. #Complicated UTI: Risk is possibly increased by Empagliflozin. - See sepsis section. F/u GCCT of urine. #New onset Afib w/ RVR: - On Diltiazem drip. F/u TSH/free T4. - Hold on ordering ECHO given his tachycardia - CHADSVasc of 2. Will start full dose lovenox. #HTN #HLD #chronic HFrEF - Resume Aspirin. Hold carvedilol, Empagliflozin, Entresto, Furosemide, spironolactone and oral K+. #Muscular dystrophy: Mother does not know the type because further workup to determine the type of muscular dystrophy that he had outside of Duchenne's was not pursued when he was a baby. #EMMANUEL not on CPAP: He used to wear CPAP #Celiac disease: diet ordered w/ instructions to accommodate for his celiac disease. Consult ground defence officer. DVT ppx: Lovenox GI ppx: Pantoprazole. Attestations 2 Medical Necessity Statement*: Patient needs to be hospitalized for greater than 2 midnights for his sepsis secondary to a UTI as well as new onset atrial fibrillation with RVR. Given his history of chronic heart failure with reduced ejection fraction, he has a high risk of decompensation if discharged prematurely. Time Spent in Patient Care: >70min was spent on chart review, patient interview as well as interview of his family member (mother), patient physical exam, lab/image review, plan formulation and coordination of care. Diagnoses Chronic systolic heart failure I50.22 Sepsis A41.9 Urinary tract infection N39.0 Muscular dystrophy G71.00 Atrial fibrillation with RVR I48.91
[2024-03-15 19:50] LABS: INR 0.89 (0.8-1.2); Partial Thromboplastin Time 31.3 SECONDS (23.9-36.7)
[2024-03-15] MEDS: dilTIAZem 100 MG in sodium chloride 0.9% (add-van) 100 ML IV (20:06)
[2024-03-15 20:15] LABS: Troponin 5 2HR 9.13 ng/L (0-15)
[2024-03-15 20:19] LABS: Troponin 5 2HR Delta -3.87 ABS# (0-10)
[2024-03-15] MEDS: sodium chloride 0.9% 500 ML IV (22:20)
--- NOTE | 2024-03-15 23:11 | ECG_ITS ---
[employer] Test Date: 2024-03-16 Pat Name: Yg Vigil Department: Room: EDIP Gender: Male Key Operator: : 1975 Requested By: Paolo Ibraihm Order Number: [id number] Narendra MD: Juma Mansfield M.D. Measurements Intervals [place] Rate: 90 P: 50 IA: 171 QRS: 15 QRSD: 98 T: 102 QT: 365 QTc: 448 Interpretive Statements SINUS RHYTHM ST DEVIATION AND MODERATE T-WAVE ABNORMALITY, CONSIDER LATERAL ISCHEMIA [-0.1+ mV T-WAVE IN I/aVL/V5/V6] Compared to ECG 03/15/2024 17:22:07 Possible ischemia now present Sinus tachycardia no longer present T-wave abnormality still present Electronically Signed On 03-22-2024 14:00:08 NITRATE OPERATOR by Juma Mansfield M.D. [email or web address]
[2024-03-16] VITALS (65 sets, daily range): BP systolic 111–168; BP diastolic 72–113; PULSE 65–110; RESP 9–27; TEMP 36.6–36.8; O2SAT 89–98; BMI 30.7
[2024-03-16 00:01] LABS: Troponin 5 6HR 9.59 ng/L (0-15)
[2024-03-16 00:11] LABS: Troponin 5 6HR Delta -3.41 ng/L (0-12)
[2024-03-16] MEDS: piperacillin-tazobactam 3.375 GM in sodium chloride 0.9% (plus) 50 ML IV (02:51)
[2024-03-16 04:39] LABS: Basophils % 0.2 %; Eosinophils # 0.2 10^3/uL (0.0-0.8); Eosinophils % 1.3 %; Hematocrit 43.2 % (37-53); Lymphocytes # 1.9 10^3/uL (0.8-4.8); Lymphocytes % 11.8 %; Mean Corpuscular HGB Conc 31.7 g/dL (30-55); Mean Corpuscular Hemoglobin 28.8 pg (27-33); Mean Corpuscular Volume 90.9 fl (82-101); Mean Platelet Volume 8.8 fL (7.4-10.4); Monocytes % 12.1 %; Neutrophils # 12.01 10^3/uL (1.8-7.7); Neutrophils % 74.1 %; Nucleated Red Blood Cells % 0 %; Platelet Count 254 10^3/cmm (157-399); Red Blood Count 4.75 10^6/uL (3.85-5.65); Red Cell Distribution Width 12.5 % (12.1-15.1); White Blood Count 16.23 10^3/uL (3.29-11.43)
[2024-03-16 05:29] LABS: Alanine Aminotransferase 15 U/L (0-41); Albumin Level 3.2 g/dL (3.5-5.2); Alkaline Phosphatase 71 U/L (40-130); Anion Gap 11.6 (5-19); Aspartate Amino Transferase 9 U/L (0-40); Blood Urea Nitrogen 9 mg/dL (6-20); Carbon Dioxide 29 mmol/L (22-29); Chloride 103 mmol/L (98-107); Creatinine Clr Calc Pharmacy 249.9384; Glomerular Filtration Rate 177.5 mL/min (90-130); Glucose 125 mg/dL (65-115); Osmolality Calculated 290 mOsm/kg (285-295); Phosphorus 3.1 mg/dL (2.5-4.5); Potassium 3.6 mmol/L (3.5-5.1); Sodium 140 mmol/L (136-145); Thyroid Stimulating Hormone 0.54 uIU/mL (0.27-4.20); Total Bilirubin 0.4 mg/dL (0.15-1.2); Total Protein 6.2 g/dL (6.6-8.7)
[2024-03-16 05:41] LABS: ABG PCO2 59.3 mmHg (35-45); ABG PH Result 7.35 (7.35-7.45); Base Excess ABG 5.5 mmol/L (-2.0-2.0); Blood Gas Allen Test Pos; Blood Gas LPM 3.5 %; Blood Gas Operator Identificat 600455; Blood Gas Sample Site Radial, left; Blood Gas Sample Type Arterial; Carboxyhemoglobin 1.3 %THgb (0.4-20.1); HGB O2 Sat 95.3 % (95-100); Ionized Calcium Level - ABG 1.2 mmol/L (1.1-1.4); Methemoglobin 0.4 % (0.4-1.5); Oxygen Device NC; PO2 ABG 89.2 mmHg (80.0-100.0); Potassium Level - ABG 3.4 mmol/L (3.5-5.0); Total Hemoglobin 14.3 g/dL (14-18)
[2024-03-16 05:55] LABS: Calcium 8.6 mg/dL (8.5-10.5)
[2024-03-16 06:07] LABS: Free T4 Free Thyroxine 1.12 ng/dL (0.82-1.77)
[2024-03-16] MEDS: dilTIAZem 60 mg Tablet PO ×4 (06:17→23:57)
--- NOTE | 2024-03-16 07:07 | PC.NURSE ---
0617: Stop cardizem infusion and administer ordered PO cardizem dose per Dr. Pena.
--- NOTE | 2024-03-16 08:22 | P.CONIM_ITS ---
Providers/Reason For Consult 2 Attending Physician: Pérez Baer MD Primary Care Provider: Ashley Vu History of Present Illness History of Present Illness Yg Vigil is a 48 year old male Medications/Allergies Home Medications Medication Instructions Recorded Confirmed Last Taken Type aspirin 81 mg tablet,delayed 81 mg PO DAILY 07/10/22 03/16/24 03/15/24 History release (Adult Aspirin Regimen) carvedilol 6.25 mg tablet 6.25 mg PO BID #180 tabs 02/01/23 03/16/24 03/15/24 Rx potassium chloride 10 mEq 20 meq (2 x 10 mEq) PO DAILY #180 02/01/23 03/16/24 03/15/24 Rx tablet,extended release tabs furosemide 40 mg tablet 40 mg PO DAILY 04/03/23 03/16/24 03/14/24 History sacubitril 49 mg-valsartan 51 mg 1 tab PO BID 04/03/23 03/16/24 03/15/24 History tablet (Entresto) spironolactone 25 mg tablet 25 mg PO DAILY 04/03/23 03/16/24 03/15/24 History Allergies Allergy/AdvReac Type Severity Reaction Status Date / Time gluten Allergy Severe ADR-Abdominal Verified 03/15/24 16:49 Pain Current Medications Generic Name Dose Route Start Last Admin Trade Name Halima PRN Reason Stop Dose Admin Diltiazem HCl 60 mg 03/16/24 06:00 03/16/24 06:17 Diltiazem 60 Mg Tablet PO 60 mg Q6H HECTOR Administration Diltiazem HCl 100 mg/ Sodium 100 mls @ 0 mls/hr 03/15/24 17:45 03/16/24 06:17 Chloride IV 0 mg/hr .Q0M HECTOR 0 mls/hr Titration Protocol Per Protocol Pantoprazole Sodium 40 mg 03/16/24 07:00 03/16/24 06:[address] 40 Mg Tablet PO Not Given ACBREAKFAST HETCOR Senna 17.2 mg 03/15/24 21:00 03/15/24 22:15 Sennosides 8.6 Mg Tablet PO Not Given BEDTIME HECTOR PFSH Acute 2 PFSH: Medical History (Updated 03/15/24 @ 22:33 by Madina Joyce MD) Celiac disease Chronic systolic heart failure Muscular dystrophy diagnosed on a muscle biopsy at age 1. He cannot hold his head up even now as an adult. Cardiomyopathy EMMANUEL (obstructive sleep apnea) Hypertension Hyperlipidemia Eustachian tube dysfunction Surgical History Hx of tonsillectomy Hx of appendectomy Family History Mother Anesthesia complication Breast cancer Grandmother CAD (coronary artery disease) Cancer Dementia Grandfather CAD (coronary artery disease) Stroke Father CAD (coronary artery disease) Diabetes Hypertension Other Adrenal disease Denies family history of Clotting disorder Chronic kidney disease (CKD) Suicide Bleeding disorder Lung disease Social History Smoking and tobacco/nicotine status: never used tobacco/nicotine Alcohol intake: never Substance/Drug Use: never Vitals/I&O/Wt Last Vital Signs Temp 98.0 F 03/15/24 16:45 Pulse 75 03/16/24 07:30 Resp 18 03/16/24 07:30 BP 160/88 03/16/24 07:30 Pulse Ox 89 L 03/16/24 07:30 O2 Del Method Aerosol Mask 03/16/24 06:24 03/15/24 03/16/24 03/16/24 22:59 06:59 14:59 Intake Total 60.75 / 60.75 80.333 / 141.083 Output Total 750 / 750 Balance 60.75 / 60.75 -669.667 / -608.917 Weight last 48 hrs Weight 252 lb Data 03/16/24 04:19 03/16/24 04:19 Micro: Microbiology 03/15/24 17:28 Blood Culture - Preliminary Blood SPECIMEN COLLECTED 03/15/24 17:26 Blood Culture - Preliminary Blood SPECIMEN COLLECTED Coding Level of Care Code Acute Code for Chg Fwd
[2024-03-16] MEDS: aspirin 81 mg EC Tablet PO (09:07)
[2024-03-16] MEDS: enoxaparin 120 mg/0.8 mL Syringe 110 MG SUBCUT ×2 (09:23→20:21)
[2024-03-16 09:43] LABS: Chlamydia Trachomatis NOT DETECTED; Neisseria Gonorrhea NOT DETECTED
[2024-03-16] MEDS: cefTRIAXone 1,000 mg SDV 1000 MG IVP (12:10)
[2024-03-16] MEDS: FUROsemide 40 mg Tablet PO (12:10)
[2024-03-16 12:18] LABS: D Dimer 0.46 ug/mLFEU (0-0.59)
--- NOTE | 2024-03-16 12:21 | USCV_ITS ---
Yg Vigil Age: 48 Gender: M : 1975 Exam Date: 03/16/2024 16:22 Ordering Phys: Pérez Baer MD Technologist: Rhett Vigil Exam Location: [facility] [place] Indication: chf BP: 119 / 82 HR: 82 Rhythm: Sinus Technical Quality: Adequate MEASUREMENTS (Male / Female) Normal Values 2D ECHO LV Diastolic Diameter PLAX 5.5 cm 4.2 - 5.9 / 3.9 - 5.3 cm IVS Diastolic Thickness 1.2 cm 0.6 - 1.0 / 0.6 - 0.9 cm IVS Systolic Thickness 1.6 cm LVPW Diastolic Thickness 1.8 cm 0.6 - 1.0 / 0.6 - 0.9 cm LVPW Systolic Thickness 1.8 cm LVOT Diameter 2.0 cm LV Ejection Fraction 2D Teich 52.6 % LV Ejection Fraction MOD 4C 64.1 % LV Ejection Fraction MOD 2C 59.5 % LV Ejection Fraction 2C AL 60.7 % LA Diameter 3.8 cm RA Systolic Volume 4C AL 34.9 ml RA Systolic Volume 4C MOD 31.9 ml LA Sys Volume AL 51.6 cm cubed LA Sys Volume Index AL 20.7 cm cubed/m squared Aorta at Sinotubular Diameter 2.5 cm IVC Diameter 1.8 cm M-MODE LA Ao Ratio MM 1.3 AV Cusp Separation MM 2.0 cm DOPPLER AV Peak Velocity 179.0 cm/s LVOT Peak Velocity 84.0 cm/s AV Area Cont Eq vti 2.0 cm squared AV Area Cont Eq pk 1.5 cm squared MV Peak Velocity 107.0 cm/s MV Area PHT 4.9 cm squared Mitral E to A Ratio 1.2 TV Peak Velocity 182.5 cm/s TR Peak Velocity 195.0 cm/s TR Peak Gradient 15.2 mmHg TR Mean Velocity 143.0 cm/s TR Mean Gradient 9.1 mmHg TR Velocity Time Integral 56.1 cm PV Peak Velocity 157.0 cm/s RV Ejection Time 0.2 s FINDINGS Left Ventricle Left ventricle is normal in size. LV systolic function is normal with EF of 50-55%. No regional wall motion abnormalities. Right Ventricle Normal in size and function Right Atrium Normal in size Left Atrium Normal in size Mitral Valve Structurally normal mitral valve. Trace mitral regurgitation. Aortic Valve Grossly normal. No significant stenosis. Tricuspid Valve Mild tricuspid regurgitation. Pulmonary artery systolic pressure is normal Pulmonic Valve Not well visualized Pericardium Normal Aorta Normal in size IVC Appears to be normal CONCLUSIONS LV systolic function is normal with EF of 50-55% Trace mitral regurgitation Mild tricuspid regurgitation Compared to prior echocardiogram from 2022, no significant changes are seen. Juma Mansfield MD (Electronically Signed) Final Date: 17 March 2024 19:46 S
[2024-03-16 12:39] LABS: Estmated Average Glucose 123; Hemoglobin A1C 5.9 % (4.0-6.0)
[2024-03-16 12:53] LABS: Chol HDL Ratio 5.03 mg/dL (1.0-5.00); Cholesterol 156 mg/dL (0-200); HDL Cholesterol 31 mg/dL (60-100); Iron 29 ug/dL (59-158); LDL Cholesterol Calculated 107 mg/dL (50-129); Percent Saturation 9.8 % (20-50); Total Iron Binding Capacity 294 mcg/dl; Triglycerides 90 mg/dL (0-150); Unsaturated Iron Binding 265 ug/dL (112-347); VLDL Cholestrol Calculation 18 mg/dL (0-30)
[2024-03-16 13:07] LABS: Procalcitonin 0.07 ng/mL (0-0.5); Vitamin B12 269 pg/mL (232-1245)
[2024-03-16] MEDS: ipratropium 0.5 mg/2.5 mL Neb INHALATION ×2 (13:56→21:03)
[2024-03-16] MEDS: budesonide 0.5 mg/2 mL Neb INHALATION ×2 (13:56→21:03)
[2024-03-16] MEDS: levalbuterol 0.63 mg/3 mL Neb INHALATION ×2 (13:56→21:03)
--- NOTE | 2024-03-16 15:20 | CTR_ITS ---
PROCEDURE INFORMATION: Exam: CT Chest Without Contrast; Diagnostic Exam date and time: 03/16/2024 6:33 PM Age: 48 years old Clinical indication: Shortness of breath; Patient HX: SOB with hypoxia; Additional info: Hypoxia, SOB, possible pna TECHNIQUE: Imaging protocol: Diagnostic computed tomography of the chest without contrast. Radiation optimization: All CT scans at this facility use at least one of these dose optimization techniques: automated exposure control; mA and/or kV adjustment per patient size (includes targeted exams where dose is matched to clinical indication); or iterative reconstruction. COMPARISON: CR (CHEST, ) 03/15/2024 5:16 PM RADIATION DOSE METRICS: Total DLP (mGy-cm): 467.72 FINDINGS: Lungs: Fnov-kykzwug-xitz-right subpleural reticulations suggestive of atelectasis versus scarring. Small left lingual wedge-shaped consolidative opacity with air bronchograms. Pleural spaces: Unremarkable. No pneumothorax. No pleural effusion. Heart: Unremarkable. No cardiomegaly. No pericardial effusion. Coronary arteries: No coronary artery calcifications. Lymph nodes: Unremarkable. No enlarged lymph nodes. Vasculature: Unremarkable. No aortic aneurysm. Bones/joints: Unremarkable. No acute fracture. Soft tissues: Bilateral gynecomastia. CT/CT chest wo con [id number] IMPRESSION: Small left lingual wedge-shaped consolidative opacity with air bronchograms which may represent small focal pneumonia.
--- NOTE | 2024-03-16 15:21 | P.PN_ITS ---
Subjective 2 Subjective: Admitted overnight. Seen in ER. Family at bedside. Earlier today morning patient had to be placed on BiPAP because of desaturating down to 70s while sleeping. Currently on BiPAP saturating 93%, awake and alert. Heart rate of 92 bpm with a blood pressure 120 systolic. States feeling better. States feeling tired. Vitals/I&O/Wt Last Vital Signs Temp 97.8 F 03/16/24 14:13 Pulse 99 03/16/24 15:18 Resp 18 03/16/24 14:13 BP 119/82 03/16/24 15:18 Pulse Ox 90 03/16/24 15:18 O2 Del Method BiPAP 03/16/24 14:13 FiO2 40 03/16/24 14:00 03/16/24 03/16/24 03/16/24 06:59 14:59 22:59 Intake Total 80.333 / 141.083 Output Total 750 / 750 Balance -669.667 / -608.917 Weight last 48 hrs Weight 114.305 kg Physical Exam 2 Const: GENERAL APPEARANCE: cooperative; not comfortable ORIENTATION/CONSCIOUSNESS: Yes awake, Yes oriented to person, Yes oriented to place and Yes oriented to time HENMT: COMMON NORMALS: normocephalic, atraumatic, external ears normal and Normal external nose present HEAD & SCALP: normocephalic and atraumatic N OSE: Normal external nose present EXTERNAL EAR: Yes external ears normal M OUTH: Normal oral and palatal mucosa present THROAT: posterior oropharynx normal Eye: OTHER: PEERL, EOMI, normal conjunctiva bilaterally Neck/C-Spine: COMMON NORMALS: Thyroid normal GENERAL: Yes normal visual inspection and Yes trachea midline THYROID: Thyroid normal CAROTIDS: No bruit CERVICAL SPINE: Yes cervical ROM normal Lymph: OTHER: No cervical or supra clavicular LAD. Resp: OTHER: CTAB w/ no w/r/r. Cardio: OTHER: Tachycardic with irregular rate and rhythm, no rubs, gallops or clicks. 2+ radial and DP pulses appreciated. GI: OTHER: BS+, NT, ND, no guarding, no rigidity, no rebound tenderness, no hepatosplenomegaly. Extremity: GENERAL: No clubbing, No cyanosis and No edema Neuro: SENSORIUM/ORIENTATION: Yes oriented to person, Yes oriented to place and Yes oriented to time CRANIAL NERVES: Yes CN normal except as noted S PEECH: speech normal SENSORY EXAM: No sensory level loss detected MOTOR EXAM: 5/5 motor strength present throughout Psych: COMMON NORMALS: speech normal APPEARANCE: Yes grossly normal A TTITUDE: Yes calm and Yes engaged ACTIVITY/MOTOR BEHAVIOR: Yes appropriate eye contact SPEECH: Yes normal speech MOOD & AFFECT: Yes euthymic mood ATTENTION/CONCENTRATION: Yes attention grossly intact MEMORY/COGNITION: Yes memory grossly intact Skin: COMMON NORMALS: no rashes or lesions noted GENERAL SKIN EXAM: no rashes or lesions noted Data 03/16/24 04:19 03/16/24 04:19 Micro: Microbiology 03/16/24 11:40 Bacterial Antigens - Final Urine Kidney 03/15/24 17:28 Blood Culture - Preliminary Blood SPECIMEN COLLECTED 03/15/24 17:26 Blood Culture - Preliminary Blood SPECIMEN COLLECTED A&P Assessment and plan (1) Sepsis: (2) Urinary tract infection: (3) Hypoxemia: (4) Atrial fibrillation with RVR: (5) Chronic systolic heart failure: (6) Muscular dystrophy: (7) EMMANUEL (obstructive sleep apnea): Plan Yg Vigil is a 48 yo man w/ muscular dysstrophy dx'ed at age 1, celiac disease, chronic HFrEF, (EF of 35-40%), HTN, HLD, EMMANUEL not on CPAP, who presents to the ED on 03/15/2022 w/ complaints of blood in his urine for the last 2 days and a temperature that ranged between 100.7F and 103F today that he checked w/ a digital forehead thermometer. #Sepsis: Present on admission. SIRS: Tachycardic, Febrile, Leukocytosis Source: UTI, possible pneumonia End organ damage: Acute infectious encephalopathy Lactic acid within normal limits Patient did not receive full 30 mL/kg BW due to concern for congestive heart failure. Monitor blood pressures. Keep mean artery pressure 65 mmHg. Follow-up blood culture, urine culture. Check bacterial antigen, trend procalcitonin, check MRSA swab respiratory viral panel. Received 1 dose of Zosyn yesterday. For now start on IV ceftriaxone. Will also add azithromycin for possible atypical pneumonia. #Complicated UTI: Cystitis seen on CT abdomen pelvis. Concern for hematuria a few days ago. Denies history of kidney stones. Follow-up cultures and de-escalate antibiotics accordingly. #New onset Afib w/ RVR: Does have history of sleep apnea. Appreciate TSH. Continue with Cardizem 60 mg Q6 hourly. Bin vas score?3 in setting of hypertension, CHF, history of CAD. Started on full dose Lovenox 1 mg/kg body weight every 12 hourly. For now we will continue. Most likely will transition to Eliquis on discharge. Hypoxia: Most likely in setting of obstructive sleep apnea along with congestive heart failure. Was in A-fib with RVR on admission. Respiratory viral panel as above. Sputum culture if possible. D-dimer. If D-dimer is negative will plan for CT chest without contrast. Oxygen supplementation keeping saturation over 90%. BiPAP nightly. Obstructive sleep apnea: In setting of muscle dystrophy. Noncompliant with BiPAP. Chronic systolic congestive heart failure: Echocardiogram from 2022 shows an EF of 35 to 40% with moderate global LV hypokinesia, grade 1 diastolic dysfunction, dilated and hypokinetic RV with TAPSE. Fluid restriction to 1500 cc. Continue with home dose of Lasix 40 mg oral daily. Strict and proper charting, daily weights. Code Protonix OPD prophylaxis Full dose Lovenox if sufficient for DVT prophylaxis Cardiac diet. Transfer to [facility]. Attestations 2 Medical Necessity Statement*: Requires further hospitalization for management of sepsis in setting of UTI, A- fib with RVR, hypoxia with concerns for obstructive sleep apnea, congestive heart failure in a patient with history of muscle dystrophy Diagnoses Sepsis A41.9 Urinary tract infection N39.0 Hypoxemia R09.02 Atrial fibrillation with RVR I48.91 Chronic systolic heart failure I50.22 Muscular dystrophy G71.00 EMMANUEL (obstructive sleep apnea) G47.33
[2024-03-16] MEDS: azithromycin 250 mg Tablet 500 MG PO (17:37)
[2024-03-16] MEDS: acetaminophen 325 mg Tablet 650 MG PO ×2 (17:37→23:57)
[2024-03-16 21:57] LABS: MRSA PCR OZH (swab) NOT DETECTED (Negative)
[2024-03-16 22:33] LABS: Adenovirus Not Detected (NOT DETECT); Chlamydia Pneumoniae Not Detected (NOT DETECT); Coronavirus 229E,HKU1,NL63,OC4 Not Detected (NOT DETECT); Human Metapneumovirus Not Detected (NOT DETECT); Human Rhinovirus/Enterovirus Not Detected (NOT DETECT); Influenza A Not Detected (NOT DETECT); Influenza A H1 Not Detected (NOT DETECT); Influenza A H1-2009 Not Detected (NOT DETECT); Influenza A H3 Not Detected (NOT DETECT); Influenza B Not Detected (NOT DETECT); Mycoplasma Pneumoniae Not Detected (NOT DETECT); Parainfluenza Virus Type 1 Not Detected (NOT DETECT); Parainfluenza Virus Type 2 Not Detected (NOT DETECT); Parainfluenza Virus Type 3 Not Detected (NOT DETECT); Parainfluenza Virus Type 4 Not Detected (NOT DETECT); Respiratory Syncytial Virus A Not Detected (NOT DETECT); Respiratory Syncytial Virus B Not Detected (NOT DETECT); SARS-COV-2 Not Detected (NOT DETECT)
[2024-03-17] VITALS (15 sets, daily range): BP systolic 108–152; BP diastolic 65–87; PULSE 65–106; RESP 16–22; TEMP 36.4–37.2; O2SAT 90–96
[2024-03-17 05:32] LABS: Basophils % 0.3 %; Eosinophils # 0.1 10^3/uL (0.0-0.8); Eosinophils % 0.9 %; Hematocrit 46.5 % (37-53); Lymphocytes # 0.9 10^3/uL (0.8-4.8); Lymphocytes % 7.5 %; Mean Corpuscular HGB Conc 29.9 g/dL (30-55); Mean Corpuscular Hemoglobin 28.4 pg (27-33); Mean Corpuscular Volume 95.1 fl (82-101); Monocytes # 0.9 10^3/uL (0.2-0.9); Monocytes % 7.7 %; Neutrophils # 9.74 10^3/uL (1.8-7.7); Neutrophils % 82.9 %; Nucleated Red Blood Cells % 0 %; Platelet Count 237 10^3/cmm (157-399); Red Blood Count 4.89 10^6/uL (3.85-5.65); Red Cell Distribution Width 12.3 % (12.1-15.1); White Blood Count 11.75 10^3/uL (3.29-11.43)
[2024-03-17 05:47] LABS: Alanine Aminotransferase 14 U/L (0-41); Albumin Level 3.2 g/dL (3.5-5.2); Alkaline Phosphatase 72 U/L (40-130); Anion Gap 12.9 (5-19); Aspartate Amino Transferase 11 U/L (0-40); Blood Urea Nitrogen 7 mg/dL (6-20); Calcium 8.6 mg/dL (8.5-10.5); Carbon Dioxide 30 mmol/L (22-29); Chloride 97 mmol/L (98-107); Creatinine Clr Calc Pharmacy 249.9384; Globulin 3.2 g/dL (1.3-4.6); Glomerular Filtration Rate 177.5 mL/min (90-130); Glucose 183 mg/dL (65-115); Magnesium 1.9 mg/dL (1.7-2.3); Osmolality Calculated 285 mOsm/kg (285-295); Potassium 3.9 mmol/L (3.5-5.1); Sodium 136 mmol/L (136-145); Total Bilirubin 0.2 mg/dL (0.15-1.2); Total Protein 6.4 g/dL (6.6-8.7)
[2024-03-17] MEDS: dilTIAZem 60 mg Tablet PO (05:59)
[2024-03-17 06:21] LABS: Folate Level 8.6 ng/mL (4.5-32.2)
[2024-03-17] MEDS: levalbuterol 0.63 mg/3 mL Neb INHALATION ×3 (08:39→21:34)
[2024-03-17] MEDS: budesonide 0.5 mg/2 mL Neb INHALATION ×2 (08:39→21:34)
[2024-03-17] MEDS: ipratropium 0.5 mg/2.5 mL Neb INHALATION ×3 (08:39→21:34)
[2024-03-17] MEDS: FUROsemide 40 mg Tablet PO (09:11)
[2024-03-17] MEDS: enoxaparin 120 mg/0.8 mL Syringe 110 MG SUBCUT (09:11)
[2024-03-17] MEDS: aspirin 81 mg EC Tablet PO (09:11)
[2024-03-17] MEDS: azithromycin 250 mg Tablet 500 MG PO (09:11)
[2024-03-17 09:13] LABS: Phosphorus 2.1 mg/dL (2.5-4.5)
[2024-03-17] MEDS: cefTRIAXone 1,000 mg SDV 1000 MG IVP (11:24)
[2024-03-17 11:34] LABS: ABG PH Result 7.38 (7.35-7.45); Alveolar-Arterial Oxygen Gradi 0.8 mmHg (5-10); Arterial Blood Gas Hematocrit 45.2 % (42-52); Base Excess ABG 10.9 mmol/L (-2.0-2.0); Blood Gas Allen Test Pos; Blood Gas Operator Identificat BROMA; Blood Gas Sample Site Radial, left; Blood Gas Sample Type Arterial; HCO3 ABG 39.2 mmol/L (22-26); HGB O2 Sat 91.3 % (95-100); Ionized Calcium Level - ABG 1.2 mmol/L (1.1-1.4); Methemoglobin 1.1 % (0.4-1.5); Oxygen Device NC; Oxygen Saturation ABG 93.2; PO2 ABG 64.1 mmHg (80.0-100.0); Potassium Level - ABG 3.6 mmol/L (3.5-5.0); Total Hemoglobin 14.7 g/dL (14-18)
[2024-03-17 11:35] LABS: ABG PCO2 67.1 mmHg (35-45)
[2024-03-17] MEDS: dilTIAZem 60 mg Tablet 30 MG PO ×2 (14:55→21:52)
--- NOTE | 2024-03-17 15:18 | P.PN_ITS ---
Subjective 2 Subjective: No acute events overnight. Seen comfortably sleeping in bed on 4 L of oxygen supplementation. Patient has not used BiPAP overnight. Spouse at bedside. Denies any nausea, vomiting. As per the spouse patient continues to feel very tired and lethargic. Encouraged patient to get out of bed and sit in chair. He states he is going to try later after taking a bath. Heart rate and blood pressures have remained stable. Vitals/I&O/Wt Last Vital Signs Temp 98.5 F 03/17/24 07:49 Pulse 101 H 03/17/24 14:11 Resp 18 03/17/24 14:11 BP 139/77 03/17/24 11:26 Pulse Ox 93 03/17/24 14:11 O2 Del Method Room Air 03/17/24 14:11 O2 Flow Rate 2 03/17/24 14:11 FiO2 40 03/16/24 23:25 03/17/24 03/17/24 03/17/24 06:59 14:59 22:59 Intake Total 690 / 930 360 / 360 Output Total 800 / 2000 400 / 400 Balance -110 / -1070 -40 / -40 Weight last 48 hrs Weight 114.305 kg Weight 114.305 kg Weight 114.305 kg Physical Exam 2 Const: COMMON NORMALS: no acute distress, average body habitus, patient oriented x3, no limitations, alert and well nourished GENERAL APPEARANCE: c ooperative, comfortable, well developed and lethargic O RIENTATION/CONSCIOUSNESS: Yes awake, Yes oriented to person, Yes oriented to place, Yes oriented to time and Yes lethargic HENMT: COMMON NORMALS: normocephalic, atraumatic, external ears normal and Normal external nose present HEAD & SCALP: normocephalic and atraumatic N OSE: Normal external nose present EXTERNAL EAR: Yes external ears normal M OUTH: Normal oral and palatal mucosa present THROAT: posterior oropharynx normal Eye: OTHER: PEERL, EOMI, normal conjunctiva bilaterally Neck/C-Spine: COMMON NORMALS: Thyroid normal GENERAL: Yes normal visual inspection and Yes trachea midline THYROID: Thyroid normal CAROTIDS: No bruit CERVICAL SPINE: Yes cervical ROM normal Lymph: OTHER: No cervical or supra clavicular LAD. Resp: OTHER: CTAB w/ no w/r/r. Cardio: OTHER: Tachycardic with irregular rate and rhythm, no rubs, gallops or clicks. 2+ radial and DP pulses appreciated. GI: OTHER: BS+, NT, ND, no guarding, no rigidity, no rebound tenderness, no hepatosplenomegaly. Extremity: GENERAL: No clubbing, No cyanosis and No edema Neuro: COMMON NORMALS: patient oriented x3 SENSORIUM/ORIENTATION: Yes alert, Yes oriented to person, Yes oriented to place, Yes oriented to time and Yes lethargic CRANIAL NERVES: Yes CN normal except as noted SPEECH: speech normal SENSORY EXAM: No sensory level loss detected MOTOR EXAM: 5/5 motor strength present throughout Psych: COMMON NORMALS: speech normal APPEARANCE: Yes grossly normal A TTITUDE: Yes calm and Yes engaged ACTIVITY/MOTOR BEHAVIOR: Yes appropriate eye contact SPEECH: Yes normal speech MOOD & AFFECT: Yes euthymic mood ATTENTION/CONCENTRATION: Yes attention grossly intact MEMORY/COGNITION: Yes memory grossly intact Skin: COMMON NORMALS: no rashes or lesions noted GENERAL SKIN EXAM: no rashes or lesions noted Data 03/17/24 04:54 03/17/24 04:54 Micro: Microbiology 03/15/24 17:29 Urine Culture - Preliminary Urine,Clean Catch Gram Negative Rods 03/15/24 17:28 Blood Culture - Preliminary Blood NEGATIVE TO DATE 03/15/24 17:26 Blood Culture - Preliminary Blood NEGATIVE TO DATE 03/16/24 11:40 Bacterial Antigens - Final Urine Kidney A&P Assessment and plan (1) Sepsis: (2) Urinary tract infection: (3) Hypoxemia: (4) Atrial fibrillation with RVR: (5) Chronic systolic heart failure: (6) Muscular dystrophy: (7) EMMANUEL (obstructive sleep apnea): Plan Yg Vigil is a 48 yo man w/ muscular dysstrophy dx'ed at age 1, celiac disease, chronic HFrEF, (EF of 35-40%), HTN, HLD, EMMANUEL not on CPAP, who presents to the ED on 03/15/2022 w/ complaints of blood in his urine for the last 2 days and a temperature that ranged between 100.7F and 103F today that he checked w/ a digital forehead thermometer. #Sepsis: Present on admission. SIRS: Tachycardic, Febrile, Leukocytosis Source: UTI, possible pneumonia End organ damage: Acute infectious encephalopathy Lactic acid within normal limits Patient did not receive full 30 mL/kg BW due to concern for congestive heart failure. Monitor blood pressures. Keep mean artery pressure 65 mmHg. Follow-up blood culture, urine culture. Check bacterial antigen, trend procalcitonin, check MRSA swab respiratory viral panel. Received 1 dose of Zosyn yesterday. For now start on IV ceftriaxone. Will also add azithromycin for possible atypical pneumonia. #Complicated UTI: Cystitis seen on CT abdomen pelvis. Concern for hematuria a few days ago. Denies history of kidney stones. Follow-up cultures and de-escalate antibiotics accordingly. #New onset Afib w/ RVR: Does have history of sleep apnea. Appreciate TSH. Continue with Cardizem 60 mg Q6 hourly. Bin vas score?3 in setting of hypertension, CHF, history of CAD. Started on full dose Lovenox 1 mg/kg body weight every 12 hourly. For now we will continue. Most likely will transition to Eliquis on discharge. Hypoxia: Most likely in setting of obstructive sleep apnea along with congestive heart failure. Was in A-fib with RVR on admission. Respiratory viral panel as above. Sputum culture if possible. D-dimer. If D-dimer is negative will plan for CT chest without contrast. Oxygen supplementation keeping saturation over 90%. BiPAP nightly. Obstructive sleep apnea: In setting of muscle dystrophy. Noncompliant with BiPAP. Chronic systolic congestive heart failure: Echocardiogram from 2022 shows an EF of 35 to 40% with moderate global LV hypokinesia, grade 1 diastolic dysfunction, dilated and hypokinetic RV with TAPSE. Fluid restriction to 1500 cc. Continue with home dose of Lasix 40 mg oral daily. Strict and proper charting, daily weights. Full code Protonix OPD prophylaxis Full dose Lovenox if sufficient for DVT prophylaxis Cardiac diet. Plan for the day: Follow-up cultures including urine culture. Continue with IV ceftriaxone and oral azithromycin for now. Concern for pneumonia on CT chest. Respiratory viral panel negative. Sputum culture unconnected. Oxygen supplementation keeping saturation over 88%. Patient seems drowsy again today. Did not tolerate BiPAP overnight. Will check ABG. Discussed in detail with the patient regarding being out of bed. Aggressive pulmonary toilet with incentive spirometry. Patient back in sinus rhythm. Heart rate stable. Change Cardizem to 30 mg 3 times daily. Restart home dose of Coreg 6.25 mg twice daily. Discussed in detail with the patient regarding anticoagulation. For now as patient does not in A-fib anymore it would be safe to transition back to prophylactic dose of anticoagulation. Patient understands and is agreeable. Follow-up echocardiogram. Attestations 2 Medical Necessity Statement*: Requires further hospitalization for management of sepsis in setting of UTI, patient oxygen in setting of COPD/sleep apnea with concerns for pneumonia in a patient with history of chronic systolic congestive heart failure, muscle dystrophy Diagnoses Sepsis A41.9 Urinary tract infection N39.0 Hypoxemia R09.02 Atrial fibrillation with RVR I48.91 Chronic systolic heart failure I50.22 Muscular dystrophy G71.00 EMMANUEL (obstructive sleep apnea) G47.33
[2024-03-17] MEDS: carvedilol 6.25 mg Tablet PO (17:25)
[2024-03-17] MEDS: acetaminophen 325 mg Tablet 650 MG PO (23:48)
[2024-03-18] VITALS (10 sets, daily range): BP systolic 115–151; BP diastolic 79–98; PULSE 71–101; RESP 14–20; TEMP 36.6–36.8; O2SAT 83–97
[2024-03-18] MEDS: levalbuterol 0.63 mg/3 mL Neb INHALATION ×3 (03:16→13:46)
[2024-03-18] MEDS: ipratropium 0.5 mg/2.5 mL Neb INHALATION ×3 (03:16→13:46)
[2024-03-18] MEDS: ondansetron 2 mg/ML SDV 2 mL 4 MG IVP (09:22)
[2024-03-18] MEDS: azithromycin 250 mg Tablet 500 MG PO (09:23)
[2024-03-18] MEDS: dilTIAZem 60 mg Tablet 30 MG PO (09:23)
[2024-03-18] MEDS: enoxaparin 40 mg/0.4 mL Syringe SUBCUT (09:23)
[2024-03-18] MEDS: aspirin 81 mg EC Tablet PO (09:24)
[2024-03-18] MEDS: carvedilol 6.25 mg Tablet PO (09:24)
[2024-03-18] MEDS: pantoprazole DR 40 mg Tablet PO (09:24)
[2024-03-18] MEDS: FUROsemide 40 mg Tablet PO (09:24)
[2024-03-18] MEDS: budesonide 0.5 mg/2 mL Neb INHALATION (09:27)
--- NOTE | 2024-03-18 09:39 | PC.RESP ---
PT SPO2 WAS 97% ON 2L NC WHILE PT IS AWAKE. RT PLACED PT ON ROOM AIR AND GAVE UPDRAFT ON AIR. PT FELL ASLEEP DURING TX AND SPO2 SUDDENLY DECREASED 83%. RT WOKE PT UP AND PLACED BACK ON 2L NC, SPO2 INCREASED TO 95%. AFTER A COUPLE MINS, PT FELL ASLEEP AGAIN AND DESATTED TO 85% ON 2L NC. INCREASED TO 3L. SPO2 INCREASED TO 92%.
[2024-03-18 10:22] LABS: Alanine Aminotransferase 15 U/L (0-41); Albumin Level 3.1 g/dL (3.5-5.2); Alkaline Phosphatase 69 U/L (40-130); Blood Urea Nitrogen 7 mg/dL (6-20); Calcium 8.8 mg/dL (8.5-10.5); Carbon Dioxide 32 mmol/L (22-29); Chloride 97 mmol/L (98-107); Creatinine Clr Calc Pharmacy 312.9457; Globulin 3.5 g/dL (1.3-4.6); Glomerular Filtration Rate 229.6 mL/min (90-130); Glucose 147 mg/dL (65-115); Osmolality Calculated 287 mOsm/kg (285-295); Phosphorus 2.2 mg/dL (2.5-4.5); Sodium 138 mmol/L (136-145); Total Bilirubin 0.2 mg/dL (0.15-1.2); Total Protein 6.6 g/dL (6.6-8.7)
[2024-03-18 10:35] LABS: Anion Gap 13.2 (5-19); Aspartate Amino Transferase 12 U/L (0-40); Potassium 4.2 mmol/L (3.5-5.1)
[2024-03-18 11:09] LABS: Magnesium 2.1 mg/dL (1.7-2.3)
--- NOTE | 2024-03-18 11:12 | P.DS_ITS ---
Discharge Providers Date of Admission: 03/16/24 11:42 Date of Discharge: March 18, 2024 Attending Provider at Admission: Pérez Baer MD Attending Provider at Discharge: Poncho Heart MD Consults: Cardiology Primary Care Provider: Ashley Vu Diagnoses at Discharge Discharge Diagnosis (1) Sepsis: Status: Inactive (2) Urinary tract infection: Status: Inactive (3) Hypoxemia: Status: Inactive (4) Atrial fibrillation with RVR: Status: Inactive (5) Chronic systolic heart failure: Status: Inactive (6) Muscular dystrophy: Status: Inactive Permanent problem details: diagnosed on a muscle biopsy at age 1. He cannot hold his head up even now as an adult. (7) EMMANUEL (obstructive sleep apnea): Status: Inactive Reason for Visit Reason for Visit: high fever, blood in urine Hospital Course Hospital Course Yg Vgiil is a 48-year-old male with past medical history significant for muscular dystrophy, celiac's disease, congestive heart failure with reduced ejection fraction, hypertension, hyperlipidemia, obstructive sleep apnea, multiple other comorbidities who presented with chief complaint of hematuria and fever, found to have sepsis secondary to acute complicated Proteus mirabilis urinary tract infection, newly diagnosed atrial fibrillation with rapid ventricular rate and left-sided community acquired pneumonia. He was treated with broad-spectrum antibiotics. Sepsis resolved. Cardiology consulted. He was started on rate control medications as well as anticoagulation for atrial fibrillation. He was counseled on treatment to sleep apnea. His symptomatology significantly improved. Patient transitioned to oral antibiotics. Patient disc harged home in stable condition. He is to follow-up with his primary provider within 1 week for ongoing care. Physical Exam Narrative: General: Patient is awake and alert. Head: Normocephalic. Atraumatic. EOM intact. Neck: No JVD. Cardiovascular: RRR. No gallops. No murmurs. Lungs: Slight cough present, faint left rhonchi, no use of accessory muscles, no crackles or wheezes. Skin: No jaundice. No rashes. Abdomen: Normal bowel sounds, abdomen soft and nontender. Genito Urinary: Genital exam not performed since complaints not related. Rectal: Rectal exam not performed since no symptoms indicated blood loss. Extremities: No cyanosis or clubbing. Musculoskeletal: No erythematous joints. Neurological: Moves all 4 extremities. No myoclonus. Discharge Data Studies Completed and Pending Completed Studies During Hospitalization Category Date Time Status CT chest wo con [id number] Routine Cat Scan 03/16/24 15:[address] kidney stone [id number] Stat Cat Scan 03/15/24 17:10 Completed XR chest 1V portable [id number] Stat Exams 03/15/24 17:09 Completed CV. echo complete* [id number] Routine Ultrasound 03/16/24 12:21 Completed Pending at discharge Category Date Time Status Blood Culture Stat Lab 03/15/24 17:28 Results Complete Blood Count w/Auto Routine Lab 03/18/24 10:42 Ordered MAG [Magnesium] AM LABS Lab 03/19/24 04:00 Ordered Sputum Culture and Gram Stain Stat Lab 03/16/24 15:28 Uncollected Radiology Impressions Chest X-Ray 03/15/24 17:09 IMPRESSION: No acute cardiopulmonary disease. Abdomen/Pelvis CT 03/15/24 17:10 IMPRESSION: 1. Suggested diffuse bladder wall thickening and adjacent inflammatory change. Correlate with urinalysis for possible cystitis. 2. No other evidence of acute intra-abdominal or pelvic process. Chest CT 03/16/24 15:20 IMPRESSION: Small left lingual wedge-shaped consolidative opacity with air bronchograms which may represent small focal pneumonia. Laboratory Results WBC Cancelled 03/18/24 09:51 Corrected WBC Cancelled 03/18/24 09:51 RBC Cancelled 03/18/24 09:51 Hgb Cancelled 03/18/24 09:51 Hct Cancelled 03/18/24 09:51 MCV Cancelled 03/18/24 09:51 MCH Cancelled 03/18/24 09:51 MCHC Cancelled 03/18/24 09:51 RDW Cancelled 03/18/24 09:51 Plt Count Cancelled 03/18/24 09:51 MPV Cancelled 03/18/24 09:51 Gran % Cancelled 03/18/24 09:51 Neut % (Auto) Cancelled 03/18/24 09:51 Lymph % (Auto) Cancelled 03/18/24 09:51 Morrow % (Auto) Cancelled 03/18/24 09:51 Eos % (Auto) Cancelled 03/18/24 09:51 Baso % (Auto) Cancelled 03/18/24 09:51 Neut # (Auto) Cancelled 03/18/24 09:51 Lymph # (Auto) Cancelled 03/18/24 09:51 Morrow # (Auto) Cancelled 03/18/24 09:51 Eos # (Auto) Cancelled 03/18/24 09:51 Baso # (Auto) Cancelled 03/18/24 09:51 Absolute Gran (auto) Cancelled 03/18/24 09:51 Nucleated RBC % (auto) Cancelled 03/18/24 09:51 Nucleated RBCs # Cancelled 03/18/24 09:51 PT 12.70 SECONDS (12.1-14.9) 03/15/24 17:26 INR 0.89 (0.8-1.2) 03/15/24 17:26 APTT 31.3 SECONDS (23.9-36.7) 03/15/24 17:26 D-Dimer 0.46 ug/mLFEU (0-0.59) 03/16/24 12:02 Specimen Type Arterial 03/17/24 11:20 Sample Site Radial, left 03/17/24 11:20 ABG pH 7.38 (7.35-7.45) 03/17/24 11:20 ABG pCO2 67.1 mmHg (35-45) H* 03/17/24 11:20 ABG pO2 64.1 mmHg (80.0-100.0) L 03/17/24 11:20 ABG HCO3 39.2 mmol/L (22-26) H 03/17/24 11:20 ABG O2 Saturation 93.2 03/17/24 11:20 ABG Base Excess 10.9 mmol/L (-2.0-2.0) H 03/17/24 11:20 Alexandre Test Pos 03/17/24 11:20 A-a O2 Gradient 0.8 mmHg (5-10) L 03/17/24 11:20 Hematocrit 45.2 % (42-52) 03/17/24 11:20 Hgb O2 Saturation 91.3 % (95-100) L 03/17/24 11:20 Carboxyhemoglobin 1.0 %THgb (0.4-20.1) 03/17/24 11:20 Methemoglobin 1.1 % (0.4-1.5) 03/17/24 11:20 Total Hemoglobin 14.7 g/dL (14-18) 03/17/24 11:20 Sodium 141.0 mmol/L (131-143) 03/17/24 11:20 Potassium 3.6 mmol/L (3.5-5.0) 03/17/24 11:20 Glucose 131.0 mg/dL (70-115) H 03/17/24 11:20 Ionized Calcium 1.2 mmol/L (1.1-1.4) 03/17/24 11:20 O2 Delivery Device Nc 03/17/24 11:20 O2 Liters/Min 3.0 % 03/17/24 11:20 Glass Ribbon Machine Operator ID Broma 03/17/24 11:20 Sodium 138 mmol/L (136-145) 03/18/24 09:51 Potassium 4.2 mmol/L (3.5-5.1) 03/18/24 09:51 Chloride 97 mmol/L (98-107) L 03/18/24 09:51 Carbon Dioxide 32 mmol/L (22-29) H 03/18/24 09:51 Anion Gap 13.2 (5-19) 03/18/24 09:51 BUN 7 mg/dL (6-20) 03/18/24 09:51 Creatinine 0.4 mg/dL (0.7-1.2) L 03/18/24 09:51 GFR Calculation 229.6 mL/min (90-130) H 03/18/24 09:51 Glucose 147 mg/dL (65-115) H 03/18/24 09:51 Estimat Average Glucose 123 03/16/24 04:19 Hemoglobin A1c 5.9 % (4.0-6.0) 03/16/24 04:19 Calculated Osmolality 287 mOsm/kg (285-295) 03/18/24 09:51 Lactic Acid 1.3 mmol/L (0.5-2.2) 03/15/24 17:26 Calcium 8.8 mg/dL (8.5-10.5) 03/18/24 09:51 Phosphorus 2.2 mg/dL (2.5-4.5) L 03/18/24 09:51 Magnesium 2.1 mg/dL (1.7-2.3) 03/18/24 09:51 Iron 29 ug/dL (59-158) L 03/16/24 12:02 TIBC 294 mcg/dl 03/16/24 12:02 % Saturation 9.8 % (20-50) L 03/16/24 12:02 Unsat Iron Binding 265 ug/dL (112-347) 03/16/24 12:02 Total Bilirubin 0.2 mg/dL (0.15-1.2) 03/18/24 09:51 AST 12 U/L (0-40) 03/18/24 09:51 ALT 15 U/L (0-41) 03/18/24 09:51 Alkaline Phosphatase 69 U/L (40-130) 03/18/24 09:51 Troponin T Baseline 13 ng/L (0-15) 03/15/24 17:26 Troponin T 120 Minute 9.13 ng/L (0-15) 03/15/24 19:29 Delta Troponin T -3.87 ABS# (0-10) L 03/15/24 19:29 Troponin T Hi Sens 6Hr 9.59 ng/L (0-15) 03/15/24 23:30 Troponin T Hi Sens 6Hr Delta -3.41 ng/L (0-12) L 03/15/24 23:30 Total Protein 6.6 g/dL (6.6-8.7) 03/18/24 09:51 Albumin 3.1 g/dL (3.5-5.2) L 03/18/24 09:51 Globulin 3.5 g/dL (1.3-4.6) 03/18/24 09:51 Triglycerides 90 mg/dL (0-150) 03/16/24 12:02 Cholesterol 156 mg/dL (0-200) 03/16/24 12:02 LDL Cholesterol, Calc 107 mg/dL (50-129) 03/16/24 12:02 Total VLDL Cholesterol 18 mg/dL (0-30) 03/16/24 12:02 HDL Cholesterol 31 mg/dL (60-100) L 03/16/24 12:02 Cholesterol/HDL Ratio 5.03 mg/dL (1.0-5.00) H 03/16/24 12:02 Vitamin B12 269 pg/mL (232-1245) 03/16/24 12:02 Folate 8.6 ng/mL (4.5-32.2) 03/17/24 04:54 Procalcitonin 0.07 ng/mL (0-0.5) 03/16/24 12:02 TSH 0.54 uIU/mL (0.27-4.20) 03/16/24 04: Free T4 1.12 ng/dL (0.82-1.77) 03/16/24 04:19 Urine Color Yellow (Yellow) 03/15/24: Urine Appearance Clear (CLEAR) 03/15/24 Urine pH 8.5 (5-7) A 03/15/24: Ur Specific [place] 1.018 (1.005-1.030) 03/15/24 Urine Protein Trace (Negative) A 03/15/24 Urine Glucose (UA) Negative (Normal) 03/15/24 Urine Ketones Negative (Negative) 03/15/24 Urine Blood Negative (Negative) 03/15/24 Urine Nitrate Negative (Negative) 03/15/24 Urine Bilirubin Negative (Negative) 03/15/24 Urine Urobilinogen 1.0 mg/dL (Negative) 03/15/24 Ur Leukocyte Esterase 1+ (Negative) A 03/15/24: Urine RBC 3-5 /hpf (0-2) 03/15/24: Urine WBC 51-100 /hpf (0-5) H 03/15/24: Ur Squamous Epith Cells 0-5 /hpf (0-5) 03/15/24 Amorphous Sediment Not Reportable 03/15/24: Urine Bacteria None seen /hpf (NONE) 03/15/24 Hyaline Casts 0-4 /lpf H 03/15/24 17: Nasal MRSA (PCR) Not detected (Negative) 03/16/24 20: Adenovirus (PCR) Not detected (NOT DETECT) 03/16/24: C. pneumoniae DNA (PCR) Not detected (NOT DETECT) 03/16/24: C. trachomatis (PCR) Not detected 03/15/24: Coronavirus 229E (PCR) Not detected (NOT DETECT) 03/16/24 20: Human Metapneumovir PCR Not detected (NOT DETECT) 03/16/24 20: Influenza A (H1) PCR Not detected (NOT DETECT) 03/16/24: Influ A (H1/09) PCR Not detected (NOT DETECT) 03/16/24 20:33 Influenza A (H3) PCR Not detected (NOT DETECT) 03/16/24 20:33 Influenza Type A (PCR) Not detected (NOT DETECT) 03/16/24 20:33 Influenza Type B (PCR) Not detected (NOT DETECT) 03/16/24 20:33 M. pneumoniae (PCR) Not detected (NOT DETECT) 03/16/24 20:33 N. gonorrhoeae (PCR) Not detected 03/15/24 17:29 Parainfluenza 1 (PCR) Not detected (NOT DETECT) 03/16/24 20:33 Parainfluenza 2 (PCR) Not detected (NOT DETECT) 03/16/24 20: Parainfluenza 3 (PCR) Not detected (NOT DETECT) 03/16/24 20: Parainfluenza 4 (PCR) Not detected (NOT DETECT) 03/16/24 20:33 RSV Type A (PCR) Not detected (NOT DETECT) 03/16/24 20: RSV Type B (PCR) Not detected (NOT DETECT) 03/16/24 20:33 Entero/Rhino (PCR) Not detected (NOT DETECT) 03/16/24 20:33 SARS-CoV-2 (PCR) Not detected (NOT DETECT) 03/16/24 20:33 Vitals Last Vital Signs Temp 98.2 F 03/18/24 07:22 Pulse 101 H 03/18/24 09:56 Resp 16 03/18/24 09:26 BP 151/98 03/18/24 07:22 Pulse Ox 96 03/18/24 09:56 O2 Del Method Nasal Cannula 03/18/24 09:26 O2 Flow Rate 2 03/18/24 09:26 FiO2 40 03/18/24 09:56 Discharge Plan Discharge Patient Disposition: Home Condition: Stable Prescriptions: New diltiazem HCl [Cardizem CD] 120 mg capsule,extended release 24hr 120 mg PO DAILY Qty: 30 0RF cefdinir 300 mg capsule 300 mg PO BID 5 Days Qty: 10 0RF azithromycin 250 mg tablet 250 mg PO DAILY 5 Days Qty: 5 0RF apixaban 5 mg tablet 5 mg PO BID Qty: 60 0RF Continued aspirin [Adult Aspirin Regimen] 81 mg tablet,delayed release (DR/EC) 81 mg PO DAILY potassium chloride 10 mEq tablet extended release 20 meq PO DAILY Qty: 180 2RF carvedilol 6.25 mg tablet 6.25 mg PO BID Qty: 180 3RF spironolactone 25 mg tablet 25 mg PO DAILY sacubitril-valsartan [Entresto] 49-51 mg tablet 1 tab PO BID furosemide 40 mg tablet 40 mg PO DAILY Discharge Orders: Discharge Order (Routine); Ordered 03/18/24 Ordered By: Poncho Heart Other Ambulatory Orders: DME: Oxygen (Order) Location: None Selected Ordered By: Poncho Heart Referrals: [facility] [Outside] Bladimir,Leisa [Referring] - 03/21/24 2:00 pm Discharge Diet: Advance as tolerated, As Directed and Cardiac Discharge Activity: Resume usual activity and Increase activity as tolerated Patient Instructions: Diltiazem (By mouth), Azithromycin (By mouth), Cefdinir (By mouth), Apixaban (By mouth), A-fib (Atrial Fibrillation) (GEN), Opioid Safety Activity Restrictions/Additional Instructions: 1. Increase activity as tolerated. 2. Take medications as prescribed. 3. Follow-up with primary provider within 1 week Discharge Attestations Time Spent in Discharge Care*: greater than 30 min Quality Metrics Clinical Quality Measures [ No reported AMI, CVA or VTE this stay] Coding Level of Care Code Acute Code for Chg Fwd Diagnoses Sepsis A41.9 Urinary tract infection N39.0 Hypoxemia R09.02 Atrial fibrillation with RVR I48.91 Chronic systolic heart failure I50.22 Muscular dystrophy G71.00 EMMANUEL (obstructive sleep apnea) G47.33
[2024-03-18 11:49] LABS: Basophils % 0.3 %; Eosinophils # 0.2 10^3/uL (0.0-0.8); Hematocrit 46.9 % (37-53); Lymphocytes # 1.3 10^3/uL (0.8-4.8); Mean Corpuscular HGB Conc 30.7 g/dL (30-55); Mean Corpuscular Hemoglobin 27.9 pg (27-33); Mean Corpuscular Volume 90.9 fl (82-101); Monocytes % 14.6 %; Neutrophils # 4.04 10^3/uL (1.8-7.7); Neutrophils % 61.6 %; Nucleated Red Blood Cells % 0 %; Platelet Count 298 10^3/cmm (157-399); Red Blood Count 5.16 10^6/uL (3.85-5.65); Red Cell Distribution Width 12.1 % (12.1-15.1); White Blood Count 6.56 10^3/uL (3.29-11.43)
--- NOTE | 2024-03-18 15:03 | PC.NURSE ---
Discharge delayed d/t waiting for portable oxygen delivery
--- OUTSIDE RECORDS SUMMARY | 2024-03-25 05:33 | XMS_ITS | Encounter Summary ---
Author Organization [facility] Address [address] [place] [address] Care Team Providers Care Automotive Designer Name Role Phone Non-Staff, Physician Primary Care Provider Unava ilable Encounter Details Date Type Department Care Team (Latest Contact Info) Description 10/03/2004 Outpatient Historical [facility] [place] [address] [place] [id number] Steven Vigil DO NO ADDRESS ON FILE Acute gastritis (Primary Dx) Social History Tobacco Use Types Packs/Day Years Used Date Smoking Tobacco: Never Assessed Sex and Gender Information Value Date Recorded Sex Assigned at Not on file 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
--- OUTSIDE RECORDS SUMMARY | 2024-03-25 05:33 | XMS_ITS | Encounter Summary ---
Author Organization [facility] Address [address] [place] [address] Care Team Providers Care Fisher Hand Line Name Role Phone Non-Staff, Physician Primary Care Provider Unava ilable Encounter Details Date Type Department Care Team (Latest Contact Info) Description 03/15/2004 Outpatient Historical [facility] Medicine [place] [address] [facility] [address] [place] [id number] Traci Alvarado, WATCH REPAIRER APPRENTICE [address] [place] [phone] ACUTE BRONCHITIS (Primary Dx) Social History Tobacco Use Types Packs/Day Years Used Date Smoking Tobacco: Never Assessed Sex and Gender Information Value Date Recorded Sex Assigned at Not on file 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
--- OUTSIDE RECORDS SUMMARY | 2024-03-25 05:33 | XMS_ITS | Encounter Summary ---
Author Organization [facility] Address [address] [place] [address] Care Team Providers Care Solution Manager Name Role Phone Non-Staff, Physician Primary Care Provider Unava ilable Encounter Details Date Type Department Care Team (Latest Contact Info) Description 10/16/2003 Outpatient Historical [facility] Medicine [place] [address] [place] [phone] Steven Vigil DO NO ADDRESS ON FILE ALLERGIC RHINITIS NOS (Primary Dx); Hered prog musc dystrphy Social History Tobacco Use Types Packs/Day Years Used Date Smoking Tobacco: Never Assessed Sex and Gender Information Value Date Recorded Sex Assigned at Not on file 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
--- OUTSIDE RECORDS SUMMARY | 2024-03-25 05:33 | XMS_ITS | Encounter Summary ---
Author Organization [facility] Address [address] [place] [address] Care Team Providers Care Roving Hand Name Role Phone Non-Staff, Physician Primary Care Provider Unava ilable Encounter Details Date Type Department Care Team (Latest Contact Info) Description 10/20/2004 Outpatient Historical [facility] Medicine [place] [address] [place] [phone] Gabbie Terry NP NO ADDRESS ON FILE ACUTE SINUSITIS NOS (Primary Dx); ACUTE PHARYNGITIS Social History Tobacco Use Types Packs/Day Years Used Date Smoking Tobacco: Never Assessed Sex and Gender Information Value Date Recorded Sex Assigned at Not on file Legal 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
--- OUTSIDE RECORDS SUMMARY | 2024-03-25 05:34 | XMS_ITS | Encounter Summary ---
Author Organization [facility] Address [address] [place] [address] Care Team Providers Care Sales Professional Name Role Phone Non-Staff, Physician Primary Care Provider Unava ilable Encounter Details Date Type Department Care Team (Latest Contact Info) Description 02/22/2005 Outpatient Historical [facility] Medicine [place] [address] [place] [address] James Pascual, PA NO ADDRESS ON FILE ACUTE SINUSITIS NOS (Primary Dx) Social History Tobacco Use Types Packs/Day Years Used Date Smoking Tobacco: Never Assessed Sex and Gender Information Value Date Recorded Sex Assigned at Not on file 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
--- OUTSIDE RECORDS SUMMARY | 2024-03-25 05:34 | XMS_ITS | Encounter Summary ---
Author Organization [facility] Address [address] [place] [address] Care Team Providers Care Sales Record Clerk Name Role Phone Non-Staff, Physician Primary Care Provider Unava ilable Encounter Details Date Type Department Care Team (Latest Contact Info) Description 03/30/2003 Outpatient Historical [facility] Medicine [place] [address] [place] [address] Steven Vigil DO NO ADDRESS ON FILE ACUTE SINUSITIS NOS (Primary Dx) Social History Tobacco Use Types Packs/Day Years Used Date Smoking Tobacco: Never Assessed Sex and Gender Information Value Date Recorded Sex Assigned at Not on file 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
--- OUTSIDE RECORDS SUMMARY | 2024-03-25 05:34 | XMS_ITS | Encounter Summary ---
Author Organization [facility] Address [address] [place] [address] Care Team Providers Care Composition Mixer Name Role Phone Non-Staff, Physician Primary Care Provider Unava ilable Encounter Details Date Type Department Care Team (Latest Contact Info) Description 01/26/2006 Outpatient Historical [facility] Medicine [place] [address] [place] [address] Steven Vigil DO NO ADDRESS ON FILE Pain in Joint, Lower Leg (Primary Dx) Social History Tobacco Use Types Packs/Day Years Used Date Smoking Tobacco: Never Assessed Sex and Gender Information Value Date Recorded Sex Assigned at Not on file Legal Sex Male 4:24 AM RELATIONSHIP ASSOC Gender Identity Not on file Sexual Orientation Not on file documented as of this encounter Plan of Treatment Not on file documented as of this encounter Visit Diagnoses Diagnosis Pain in joint, lower leg- Primary documented in this encounter Care Teams Composition Mixer Relationship Specialty Start Date End Date Non-Staff, Physician NO ADDRESS ON FILE PCP - General 11/11/18 documented as of this encounter
--- OUTSIDE RECORDS SUMMARY | 2024-03-25 05:34 | XMS_ITS | Encounter Summary ---
Author Organization [facility] Address [address] [place] [address] Care Team Providers Care Metal Refiner Name Role Phone Non-Staff, Physician Primary Care Provider Unava ilable Encounter Details Date Type Department Care Team (Latest Contact Info) Description 10/02/2006 Outpatient Historical [facility] Medicine [place] [address] [place] [address] Steven Vigil DO NO ADDRESS ON FILE Cellulitis and Abscess of Leg, except Foot (Primary Dx); Toxic Effect Venom; Screening Examination for Pulmonary Tuberculosis Social History Tobacco Use Types Packs/Day Years Used Date Smoking Tobacco: Never Assessed Sex and Gender Information Value Date Recorded Sex Assigned at Not on file 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
--- OUTSIDE RECORDS SUMMARY | 2024-03-25 05:34 | XMS_ITS | Encounter Summary ---
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 The conus medullaris and cauda equina appear normal. No intradural disease is identified. The spinal column shows no areas of abnormal signal on STIR images. The paraspinal soft tissues are unremarkable. Diffuse atrophy of the paraspinal musculature is noted with fatty infiltration. L1-L2: Normal. L2-L3: Normal. L3-L4: Normal. L4-L5: Mild disc extrusion is present in the left subarticular zone. The neural foramina are widely patent. L5-S1: Normal. Impression: Disc extrusion on the left at L4-L5 apparently impinges upon the left L5 nerve root. 2. No right-sided neural impingement or other discogenic disease is seen. 3. Atrophic changes of the paraspinal musculature are noted with fatty infiltration. - Procedure Note Estuardo Quinonez - 05/01/2007 The lumbar spine is normal in sagittal alignment. The conus medullaris andcauda equina appear normal. No intradural disease is identified. The spinal column shows noareas of abnormal signal on STIR images. The paraspinal soft tissues are unremarkable. Diffuse atrophyof the paraspinal musculature is noted with fatty infiltration. L1-L2: Normal. L2-L3: Normal. L3-L4: Normal. L4-L5: Mild disc extrusion is present in the left subarticular zone. Theneural foramina are widely patent. L5-S1: Normal. Impression: Disc extrusion on the left at L4-L5 apparently impinges uponthe left L5 nerve root. 2. No right-sided neural impingement or other discogenic disease isseen. 3. Atrophic changes of the paraspinal musculature are noted with fattyinfiltration. - Steven Vigil DO MR ORDERABLES Final Result documented in this encounter Visit Diagnoses Not on filedocumented in this encounter Care Teams Solar Manager Relationship Specialty Start Date End Date Non-Staff, Physician NO ADDRESS ON FILE PCP - General 11/11/18 documented as of this encounter
--- OUTSIDE RECORDS SUMMARY | 2024-03-25 05:34 | XMS_ITS | Encounter Summary ---
Author Organization [facility] Address [address] [place] [address] Care Team Providers Care Lang Path Therapist Name Role Phone Non-Staff, Physician Primary Care Provider Unava ilable Encounter Details Date Type Department Care Team (Latest Contact Info) Description 10/04/2006 Outpatient Historical [facility] Medicine [place] [address] [place] [address] Traci Alvarado, PROCESS EQUIPMENT OPERATOR [address] [place] [phone] Toxic Effect Venom (Primary Dx); Other Specified Disorder of Skin Social History Tobacco Use Types Packs/Day Years Used Date Smoking Tobacco: Never Assessed Sex and Gender Information Value Date Recorded Sex Assigned at Not on file Legal 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
--- OUTSIDE RECORDS SUMMARY | 2024-03-25 05:34 | XMS_ITS | Encounter Summary ---
Author Organization [facility] Address [address] [place] [address] Care Team Providers Care Rod Mill Tender Name Role Phone Non-Staff, Physician Primary Care Provider Unava ilable Encounter Details Date Type Department Care Team (Latest Contact Info) Description 07/16/2007 Outpatient Historical [facility] Pain Management Procedures [address] 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 No report expected. Procedure Note 03/01/2008 Finalized by [employer] utility. No report expected. us Paolo Esteves MD DIAGNOSTIC IMAGING ORDERABLE S Final Result documented in this encounter Visit Diagnoses Diagnosis Arthropathy, unspecified, site unspecified documented in this encounter Care Teams Rod Mill Tender Relationship Specialty Start Date End Date Non-Staff, Physician NO ADDRESS ON FILE PCP - General 11/11/18 documented as of this encounter
--- OUTSIDE RECORDS SUMMARY | 2024-03-25 05:34 | XMS_ITS | Encounter Summary ---
Author Organization [facility] Address [address] [place] [address] Care Team Providers Care Lot Boss Name Role Phone Non-Staff, Physician Primary Care Provider Unava ilable Encounter Details Date Type Department Care Team (Late st Contact Info) Description 07/22/2007 [facility]patient [facility] [address] 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
--- OUTSIDE RECORDS SUMMARY | 2024-03-25 05:34 | XMS_ITS | Encounter Summary ---
Author Organization [facility] Address [address] [place] [address] Care Team Providers Care Cotton Bag Clipper Name Role Phone Non-Staff, Physician Primary Care Provider Unava ilable Encounter Details Date Type Department Care Team (Latest Contact Info) Description 09/20/2000 Outpatient Historical [facility] Medicine [place] [address] [place] [address] Steven Vigil, DO NO ADDRESS ON FILE Other specified disease of hair and hair follicles (Primary Dx); Pityriasis versicolor; Backache, unspecified Social History Tobacco Use Types Packs/Day Years Used Date Smoking Tobacco: Never Assessed Sex and Gender Information Value Date Recorded Sex Assigned at Not on file Legal 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
--- OUTSIDE RECORDS SUMMARY | 2024-03-25 05:34 | XMS_ITS | Encounter Summary ---
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
--- OUTSIDE RECORDS SUMMARY | 2024-03-25 05:34 | XMS_ITS | Encounter Summary ---
Author Organization [facility] Address [address] [place] [address] Care Team Providers Care Wheel Setter Name Role Phone Non-Staff, Physician Primary Care Provider Unava ilable Encounter Details Date Type Department Care Team (Late st Contact Info) Description 06/19/2007 Outpatient Historical [facility] [address] 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
--- OUTSIDE RECORDS SUMMARY | 2024-03-25 05:34 | XMS_ITS | Encounter Summary ---
Author Organization [facility] Address [address] [place] [address] Care Team Providers Care Car Rental Agency Manager Name Role Phone Non-Staff, Physician Primary Care Provider Unava ilable Encounter Details Date Type Department Care Team (Late st Contact Info) Description 09/05/2007 Outpatient Historical [facility] [address] 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
--- OUTSIDE RECORDS SUMMARY | 2024-03-25 05:34 | XMS_ITS | Encounter Summary ---
Author Organization [facility] Address [address] [place] [address] Care Team Providers Care Earth Burner Name Role Phone Non-Staff, Physician Primary Care Provider Unava ilable Encounter Details Date Type Department Care Team (Latest Contact Info) Description 12/30/1998 Outpatient Historical [facility] Medicine [place] [address] [place] [address] Anirudh Willard, DO [address] [place] [address] Issue of medical certificates (Primary Dx) Social History Tobacco Use Types Packs/Day Years Used Date Smoking Tobacco: Never Assessed Sex and Gender Information Value Date Recorded Sex Assigned at Not on file Legal 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
--- OUTSIDE RECORDS SUMMARY | 2024-03-25 05:34 | XMS_ITS | Encounter Summary ---
Author Organization [facility] Address [address] [place] [address] Care Team Providers Care Specialist Managers Name Role Phone Non-Staff, Physician Primary Care Provider Unava ilable Encounter Details Date Type Department Care Team (Latest Contact Info) Description 12/29/2004 Outpatient Historical [facility] Medicine [place] [address] [place] [address] Shavonne Stout MD NO ADDRESS ON FILE DERMATITIS NOS (Primary Dx) Social History Tobacco Use Types Packs/Day Years Used Date Smoking Tobacco: Never Assessed Sex and Gender Information Value Date Recorded Sex Assigned at Not on file Legal 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
--- OUTSIDE RECORDS SUMMARY | 2024-03-25 05:34 | XMS_ITS | Encounter Summary ---
Author Organization 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
--- OUTSIDE RECORDS SUMMARY | 2024-03-25 05:34 | XMS_ITS | Encounter Summary ---
Author Organization [facility] Address [address] [place] [address] Care Team Providers Care Rn Clinical Review Name Role Phone Non-Staff, Physician Primary Care Provider Unava ilable Encounter Details Date Type Department Care Team (Late st Contact Info) Description 06/10/2007 Outpatient Historical [facility] [address] 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
--- OUTSIDE RECORDS SUMMARY | 2024-03-25 05:34 | XMS_ITS | Encounter Summary ---
Author Organization [facility] Address [address] [place] [address] Care Team Providers Care International Broadcast Music Librarian Name Role Phone Non-Staff, Physician Primary Care Provider Unava ilable Encounter Details Date Type Department Care Team (Latest Contact Info) Description 08/31/2007 Outpatient Historical 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 Gender Identity Not on file Sexual Orientation Not on file documented as of this encounter Plan of Treatment Not on file documented as of this encounter Procedures Procedure Name Priority Date/Time Associated Diagnosis Comments XR CERVICAL SPINE 2 OR 3 VIEWS Routine 09/05/2007 10:38 AM CDT documented in this encounter Results * XR CERVICAL SPINE 2 OR 3 VW (09/05/2007 10:38 AM CDT) Anatomical Region Laterality Modality Spine Other 09/05/2007 10:3 8 AM CDT Narrative 09/05/2007 3:37 PM CDT Exam: Spine - Cervical Flexion and Extension Date/Time of Exam: Sep 05, 2007 10:38:39 AM History: Neck pain. Comparisons: None. Findings: Lateral neutral, lateral flexion and lateral extension views of the cervical spine demonstrate no evidence for subluxation. Intervertebral disc heights appear within normal limits. Soft tissues are radiographically unremarkable. Facets are unremarkable. Impressions: 1. No evidence for subluxation on flexion or extension views. - Dictated By: ??Mohsen Ramsay M.D., Ph.D. Electronically Signed By: ??Mohsen Ramsay M.D., Ph.D. Date Signed: 09/05/07 JAW Procedure Note Mohsen Ramsay - 09/14/2007 Exam: Spine - Cervical Flexion and Extension Date/Time of Exam: Sep 05, 2007 10:38:39 AM History: Neck pain. Comparisons: None. Findings: Lateral neutral, lateral flexion and lateral extension views ofthe cervical spine demonstrate no evidence for subluxation. Intervertebral disc heights appear withinnormal limits. Soft tissues are radiographically unremarkable. Facets are unremarkable. Impressions: 1. No evidence for subluxation on flexion or extension views. - Dictated By: Mohsen Ramsay M.D., Ph.D. Electronically Signed By: Mohsen Ramsay M.D., Ph.D. 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
--- OUTSIDE RECORDS SUMMARY | 2024-03-25 05:34 | XMS_ITS | Encounter Summary ---
Author Organization [facility] Address [address] [place] [address] Care Team Providers Care Shaker Flatwork Name Role Phone Non-Staff, Physician Primary Care Provider Unava ilable Encounter Details Date Type Department Care Team (Late st Contact Info) Description 06/20/2007 Outpatient Historical [facility] Pain Management Procedures [address] 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 No report expected. Procedure Note 03/01/2008 Finalized by Cmxtwenty utility. No report expected. us Paolo Esteves MD DIAGNOSTIC IMAGING ORDERABLE S Final Result documented in this encounter Visit Diagnoses Not on filedocumented in this encounter Care Teams Shaker Flatwork Relationship Specialty Start Date End Date Non-Staff, Physician NO ADDRESS ON FILE PCP - General 11/11/18 documented as of this encounter
--- OUTSIDE RECORDS SUMMARY | 2024-03-25 05:34 | XMS_ITS | Encounter Summary ---
Author Organization [facility] Address [address] [place] [address] Care Team Providers Care Chummer Name Role Phone Non-Staff, Physician Primary Care Provider Unava ilable Encounter Details Date Type Department Care Team (Latest Contact Info) Description 12/26/2001 Outpatient Historical [facility] Medicine [place] [address] [place] [phone] Steven Vigil DO NO ADDRESS ON FILE MED EXAM NEC-ADMIN PURP (Primary Dx) Social History Tobacco Use Types Packs/Day Years Used Date Smoking Tobacco: Never Assessed Sex and Gender Information Value Date Recorded Sex Assigned at Not on file 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
--- OUTSIDE RECORDS SUMMARY | 2024-03-25 05:34 | XMS_ITS | Encounter Summary ---
Author Organization [facility] Address [address] [place] [address] Care Team Providers Care Rim Roller Operator Name Role Phone Non-Staff, Physician Primary Care Provider Unava ilable Encounter Details Date Type Department Care Team (Latest Contact Info) Description 02/09/2006 Outpatient Historical [facility] Medicine [place] [address] [place] [phone] Steven Vigil DO NO ADDRESS ON FILE Pain in Joint, Lower Leg (Primary Dx); Hered Prog Musc Dystrphy Social History Tobacco Use Types Packs/Day Years Used Date Smoking Tobacco: Never Assessed Sex and Gender Information Value Date Recorded Sex Assigned at Not on file Legal 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
--- OUTSIDE RECORDS SUMMARY | 2024-03-25 05:34 | XMS_ITS | Clinical Summary ---
Author Organization [facility] Address [address] [place] [address] Care Team Providers Care Pathology Tech Name Role Phone Non-Staff, Physician Primary Care Provider Unava ilable Allergies Active Allergy Reactions Criticality Noted Date Comments Tramadol Other (See Comments) 11/11/2012 excessive fatigue, falls asleep easily Medications No known medications Active Problems Problem Noted Date Diagnosed Date Closed fracture of acromial end of clavicle 09/19 Vitamin D deficiency 10/07/2015 Lumbar pain 03/29/2011 Hematochezia 11/09/2010 Abdominal pain, left lower quadrant 11/09/2010 Allergic rhinitis 06/03/2008 Thoracic outlet syndrome 04/30/2008 Displacement of lumbar intervertebral disc 03/06 Overview (03/06/2008): Left L4-5 disc extrusion Lumbar radiculopathy 03/06/2008 Overview (03/06/2008): RIGHT L5 Neck pain 03/06/2008 Muscular dystrophy Resolved Problems Problem Noted Date Diagnosed Date Resolved Date Headache(784.0) 11/11/2009 10/03/2010 Night sweat 06/10/2008 10/03/2010 Lesion of ulnar nerve 03/06/20082010 Overview (03/06/2008): Right ulnar neuropathy Myofascial pain 03/06/2008 10/03/2010 Immunizations Immunization Administration Dates Next Due (TDVAX)(7 YRS UP) TETANUS AN D DIPHTHERIA TOXOIDS, ADSORBED (2 LF OF TETANUS TOXOID AND 2 LF OF DIPHTHERIA TOXOID), 0.5ML (PF), IM 10/02/2006 Skin Test TB 06/10/2008 Family History Medical History Relation Name Comments Diabetes Father Cancer Maternal Grandfather Cancer Maternal Grandmother Breast Cancer Mother Heart Disease Paternal Grandfather Cancer Paternal Grandmother Colon Cancer Neg Hx Relation Name Status Comments Father Maternal Grandfather Maternal Grandmother Mother Paternal Grandfather Paternal Grandmother Social History Tobacco Use Types Packs/Day Years Used Date Smoking Tobacco: Never Smokeless Tobacco: Never Tobacco Cessation:Counseling Given: No Alcohol Use Standard Drinks/Week Comments Not Currently 0 (1 standard drink = 0.6 oz pur e alcohol) Sex and Gender Information Value Date Recorded Sex Assigned at Not on file 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 Gender Identity Not on file Sexual Orientation Not on file Occupation Industry Job Start Date Job End Date Not on file Not on file Not on file Not on file Last Filed Vital Signs Vital Sign Reading Time Taken Comments Blood Pressure 130/94 12/17/2018 2:30 PM CDT Pulse 112 12/17/2018 2:30 PM CDT Temperature 36.2 ??C (97.2 ??F) 12/17/2018 2:30 PM CD T Respiratory Rate 16 12/17/2018 2:30 PM CDT Oxygen Saturation 93% 12/17/2018 2:30 PM CDT Inhaled Oxygen Concentration - - Weight 103.3 kg (227 lb 12.8 oz) 12/17/2018 2:30 PM CDT Height 193 cm (6' 4 ) 12/17/2018 2:30 PM CDT Body Mass Index 27.73 12/17/2018 2:30 PM CDT Plan of Treatment Health Maintenance Due Date Last Done Comments HEPATITIS B VACCINES (1 of 3 - 19+ 3-dose series) 11/14/1994 DTAP/TDAP/TD VACCINES (1 - Tdap) 10/03/2006 10/03/19 07 FIT-DNA Q 3 years 11/14/2020 FIT/FOBT Q 1 year 11/14/2020 Flex Sig/CT Colonography Q 5 years 11/14/2020 COLORECTAL SCREENING 11/16/2020 11/16/2010 Colorectal Cancer Screening 11/16/2020 INFLUENZA VACCINE (#1) 2023 PNEUMOCOCCAL VACCINE 0-64 YEARS Aged Out No longer eligible based on patient's age to complete this topic Procedures Procedure Name Priority Date/Time Associated Diagnosis Comments ENDOSCOPY, COLON, SCREENING Routine 11/16/2010 from Last 3 Months or Most Recently Relevant to Health Maintenance Results * ENDOSCOPY, COLON, SCREENING (11/16/2010) us Abstract Spg Provider GI PROCEDURE ORDERABLES Fi nal Result from Last 3 Months or Most Recently Relevant to Health Maintenance Insurance MEDICARE PART A AND B MEDICAID [place] [facility] MEDICARE PART A AND B [facility] Care Teams Pathology Tech Relationship Specialty Start Date End Date Non-Staff, Physician NO ADDRESS ON FILE PCP - General 11/11/18
--- OUTSIDE RECORDS SUMMARY | 2024-03-25 05:34 | XMS_ITS | Encounter Summary ---
Author Organization [facility] Address [address] [place] [address] Care Team Providers Care Hand Finisher Name Role Phone Non-Staff, Physician Primary Care Provider Unava ilable Encounter Details Date Type Department Care Team (Latest Contact Info) Description 08/03/2004 Outpatient Historical [facility] Family Medicine- [address] [place] [address] Gabbie Terry NP NO ADDRESS ON FILE ACUTE SINUSITIS NOS (Primary Dx) Social History Tobacco Use Types Packs/Day Years Used Date Smoking Tobacco: Never Assessed Sex and Gender Information Value Date Recorded Sex Assigned at Not on file 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
--- OUTSIDE RECORDS SUMMARY | 2024-03-25 05:34 | XMS_ITS | Encounter Summary ---
Author Organization [facility] Address [address] [place] [address] Care Team Providers Care Pigment Furnace Tender Name Role Phone Non-Staff, Physician Primary Care Provider Unava ilable Encounter Details Date Type Department Care Team (Late st Contact Info) Description 07/08/2007 [facility] [address] 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
--- OUTSIDE RECORDS SUMMARY | 2024-03-25 05:34 | XMS_ITS | Encounter Summary ---
Author Organization [facility] Address [address] [place] [address] Care Team Providers Care Broadcast Program Director Name Role Phone Non-Staff, Physician Primary Care Provider Unava ilable Encounter Details Date Type Department Care Team (Latest Contact Info) Description 10/05/2006 Outpatient Historical [facility] Medicine [place] [address] [place] [address] Steven Vigil DO NO ADDRESS ON FILE Toxic Effect Venom (Primary Dx); Cellulitis and Abscess of Unspecified Site Social History Tobacco Use Types Packs/Day Years Used Date Smoking Tobacco: Never Assessed Sex and Gender Information Value Date Recorded Sex Assigned at Not on file 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
--- OUTSIDE RECORDS SUMMARY | 2024-03-25 05:34 | XMS_ITS | Encounter Summary ---
Author Organization [facility] Address [address] [place] [address] Care Team Providers Care Simulation Engineer Name Role Phone Non-Staff, Physician Primary Care Provider Unava ilable Encounter Details Date Type Department Care Team (Latest Contact Info) Description 07/13/2006 Outpatient Historical [facility] Medicine [place] [address] [place] [address] Steven Vigil DO NO ADDRESS ON FILE Pain in Joint, Lower Leg (Primary Dx); Dermatophytosis of Nail; Hered Prog Musc Dystrphy Social History Tobacco Use Types Packs/Day Years Used Date Smoking Tobacco: Never Assessed Sex and Gender Information Value Date Recorded Sex Assigned at Not on file Legal Sex Male 4:24 AM SPECIALIST WOUND CARE Gender Identity Not on file Sexual Orientation Not on file documented as of this encounter Plan of Treatment Not on file documented as of this encounter Visit Diagnoses Diagnosis Pain in joint, lower leg- Primary Dermatophytosis of nail Hered prog musc dystrphy Hereditary progressive muscular dystrophy documented in this encounter Care Teams Simulation Engineer Relationship Specialty Start Date End Date Non-Staff, Physician NO ADDRESS ON FILE PCP - General 11/11/18 documented as of this encounter
--- OUTSIDE RECORDS SUMMARY | 2024-03-25 05:34 | XMS_ITS | Encounter Summary ---
Author Organization [facility] Address [address] [place] [address] Care Team Providers Care Radiology Aide Name Role Phone Non-Staff, Physician Primary Care Provider Unava ilable Encounter Details Date Type Department Care Team (Latest Contact Info) Description 06/30/2009 Ancillary Orders [facility] Medicine [place] [address] [place] [address] Steven Vigil, DO NO ADDRESS ON FILE Lumbar Radiculopathy Social History Tobacco Use Types Packs/Day Years Used Date Smoking Tobacco: Never Alcohol Use Standard Drinks/Week Comments Yes 1.7 (1 standard drink = 0.6 oz p ure alcohol) Sex and Gender Information Value Date Recorded Sex Assigned at Not on file Legal Sex Male 4:24 AM MANAGER CONTROL Gender Identity Not on file Sexual Orientation Not on file documented as of this encounter Plan of Treatment Not on file documented as of this encounter Results * MRI LUMBAR WO CONTRAST (06/30/2009 11:59 AM CDT) Anatomical Region Laterality Modality Spine Magnetic Resonan ce 06/30/2009 11:1 8 AM CDT Impressions 06/30/2009 12:49 PM CDT Impression: 1. Disc extrusion on the left L4-L5 probably impinges upon the left L5 nerve root in the lateral recess. 2. Diffuse atrophic changes of the paraspinal musculature appears to be present. This is consistent with the patient's history of muscular dystrophy. Narrative 06/30/2009 12:49 PM CDT Exam: MRI LUMBAR WO CONTRAST Date/Time of Exam: June 30, 2009 11:59:00 AM History: LUMBAR RADICULOPATHY. Technique: MRI of the lumbar spine was performed without the administration of intravenous contrast.[ ] The lumbar spine is normal in sagittal alignment. The cauda equina and conus medullaris appear normal. No intradural disease is present. STIR images show no sites of abnormal signal throughout the lumbar spine. Diffuse atrophic changes of paraspinal musculature appears to be present bilaterally. The paraspinal tissues are otherwise unremarkable in appearance. The intervertebral discs above the L4 level appear normal. The spinal canal and neural foramina are widely patent. L4-L5: Mild to moderate disc extrusion is present in the left subarticular zone, probably impinging upon the left L5 nerve root. Neural foramina are widely patent. L5-S1: Unremarkable. Procedure Note Estuardo Quinonez MD - 06/30/2009 Exam: MRI LUMBAR WO CONTRAST Date/Time of Exam: June 30, 2009 11:59:00 AM History: LUMBAR RADICULOPATHY. Technique: MRI of the lumbar spine was performed without the administration of intravenous contrast.[ ] The lumbar spine is normal in sagittal alignment. The cauda equina and conus medullaris appear normal. No intradural disease is present. STIR images show no sites of abnormal signal throughout the lumbar spine. Diffuse atrophic changes of paraspinal musculature appears to be present bilaterally. The paraspinal tissues are otherwise unremarkable in appearance. The intervertebral discs above the L4 level appear normal. The spinal canal and neural foramina are widely patent. L4-L5: Mild to moderate disc extrusion is present in the left subarticular zone, probably impinging upon the left L5 nerve root. Neural foramina are widely patent. L5-S1: Unremarkable. IMPRESSION Impression: 1. Disc extrusion on the left L4-L5 probably impinges upon the left L5 nerve root in the lateral recess. 2. Diffuse atrophic changes of the paraspinal musculature appears to be present. This is consistent with the patient's history of muscular dystrophy. Steven Vigil DO MR ORDERABLES Final Result documented in this encounter Visit Diagnoses Diagnosis Lumbar radiculopathy Thoracic or lumbosacral neuritis or radiculitis, unspecified documented in this encounter Care Teams Radiology Aide Relationship Specialty Start Date End Date Non-Staff, Physician NO ADDRESS ON FILE PCP - General 11/11/18 documented as of this encounter
--- OUTSIDE RECORDS SUMMARY | 2024-03-25 05:34 | XMS_ITS | Encounter Summary ---
Author Organization [facility] Address [address] [place] [address] Care Team Providers Care Supervisory Lifeguard Name Role Phone Non-Staff, Physician Primary Care Provider Unava ilable Encounter Details Date Type Department Care Team (Latest Contact Info) Description 10/02/2005 Outpatient Historical [facility] Family Medicine- [place] [address] [place] [address] Shavonne Stout MD NO ADDRESS ON FILE Toxic Effect Venom (Primary Dx); Health Examination of Defined Subpopulation Social History Tobacco Use Types Packs/Day Years Used Date Smoking Tobacco: Never Assessed Sex and Gender Information Value Date Recorded Sex Assigned at Not on file Legal 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
--- OUTSIDE RECORDS SUMMARY | 2024-03-25 05:34 | XMS_ITS | Encounter Summary ---
Author Organization [facility] Address [address] [place] [address] Care Team Providers Care Plastic Sheets Finishing Supervisor Name Role Phone Non-Staff, Physician Primary Care Provider Unava ilable Encounter Details Date Type Department Care Team (Latest Contact Info) Description 11/11/1999 Outpatient Historical [facility] Medicine [place] [address] [place] [address] Steven Vigil DO NO ADDRESS ON FILE Other specified disease of hair and hair follicles (Primary Dx); Other general medical examination for administrative purposes Social History Tobacco Use Types Packs/Day Years Used Date Smoking Tobacco: Never Assessed Sex and Gender Information Value Date Recorded Sex Assigned at Not on file 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
--- OUTSIDE RECORDS SUMMARY | 2024-03-25 05:34 | XMS_ITS | Encounter Summary ---
Author Organization [facility] Address [address] [place] [address] Care Team Providers Care Geospatial Extractor Analysis Name Role Phone Non-Staff, Physician Primary Care Provider Unava ilable Encounter Details Date Type Department Care Team (Late st Contact Info) Description 04/08/2007 Outpatient Historical [facility] Orthopedics- 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 Pulse: 106. BP: 120/85. For additional information regarding past medical history, present medications, allergies, completereview of systems, past surgical history, family history and social history, please refer to the orthopedic health questionnaire completed by the patient, which I have reviewed in detail today.\ } REQUESTING PHYSICIAN: Dr. Steven Vigil, D.O. } CHIEF COMPLAINT: Right knee pain. } PRESENT ILLNESS: Mr. Vigil comes in today for follow up of his right knee. He has had a steroid injection into his right knee and it has helped quite a bit in the past and relieved his pain. 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 He is having the same symptoms again. He is requesting another steroid injection today. PAST MEDICAL HISTORY: Not completed on the health questionnaire by the patient. PAST SURGICAL HISTORY: 1. Appendix. 2. Tonsillectomy/adenoids. ALLERGIES: No known drug allergies. MEDICATIONS: Pain reliever. FAMILY HISTORY: 1. The patient notes that his mother has a history of breast cancer. 2. The patient notes that his father has a history of ulcers. SOCIAL HISTORY: The patient notes that he rarely exercises. He consumes approximately 6 alcoholic beverages per week. The patient has no history of substance abuse or tobacco use. His highest level of education is the 12th grade. He has 1 child. REVIEW OF SYSTEMS: CONSTITUTIONAL: Negative. MUSCULOSKELETAL/JOINTS: Muscular disease. NEUROLOGICAL: Negative. ENDOCRINE: Negative. HEMATOLOGY: Negative. URINARY: Negative. RESPIRATORY: Negative. CARDIOVASCULAR: Negative. REPRODUCTIVE: Negative. GI: Negative. IMMUNOLOGICAL: Negative. PSYCHIATRIC: Negative. CANCER: Negative. CONSTITUTIONAL: The patient is a well developed, well-nourished male in no acute distress. SKIN: The skin is of normal color and texture. PSYCH: The patient is alert and oriented to person, place, and time. EXAMINATION: On physical examination, he has good range of motion of his knee in flexion and extension. Negative straight leg raise test. He has good range of motion of his hip without hip or knee pain. He does have tenderness to palpation along the medial and lateral joint line. X-RAYS: Four views of the knee were again obtained today. There is no osteolytic or osteoblastic lesions of bone. No fractures are seen. 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 PLAN: I have injected the right knee today. We will check him back as needed. If he has an ongoing issue with this I am going to offer him a diagnostic arthroscopy of the knee with debridement of hisfat pad and synovium. PROCEDURE NOTE: Under sterile conditions today, the right knee was injected with 80 milligrams of Depo-Medrol and Lidocaine. The patient tolerated this well. Thank you for allowing me to participate in the care of this patient. Please note my recommendations as stated above. A copy has been sent for your review. Rah Silva M.D. [facility] Electronically Signed by Rah Silva M.D. 04/23/2007 12:56 , A, kc1 Job #: Document #: [id number] cc: Steven Vigil D.O. L BARREL REAMER documented in this encounter Procedure Notes * Rah Silva - 04/08/2007 12:00 AM CSTAssociated Order(s): IMAGING REPORT Date: 04/08/2007 Patient Name: Yg Vigil : 1975 Requesting Physician: Rah Silva M.D. X-RAYS: Four views of the knee were again obtained today. There is no osteolytic or osteoblastic lesions of bone. No fractures are seen. Rah Silva M.D. [facility] Electronically Signed by Rah Silva M.D. 04/23/2007 12:56 , A kc1 Job #: Document #: [id number] cc: (Not official until signed) L BARREL REAMER documented in this encounter Miscellaneous Notes * Letter - Rah Silva - 04/08/2007 12:00 AM CST 04/08/2007 Steven Vigil D.O. [facility] [place] [facility] [place] [address] [place] [address] RE: Yg Vigil : 1975 Dear Steven: I had the pleasure of seeing your patient, Yg Vigil, in the clinic today. I have enclosed myclinic note for your perusal. Thank you for allowing me to provide orthopedic care for your patients. Please do not hesitate to contact me if you have any questions or concerns regarding this patients care. Sincerely, Rah Silva M.D. [facility] Electronically Signed by Rah Silva M.D. 04/23/2007 12:56 , A, kc1 Job #: Document #: [id number] cc: L BARREL REAMER documented in this encounter Plan of Treatment Not on file documented as of this encounter Procedures Procedure Name Priority Date/Time Associated Diagnosis Comments IMAGING REPORT 04/23/2007 1:46 PM STEEL BARREL REAMER documented in this encounter Results * IMAGING REPORT (04/23/2007 1:46 PM STEEL BARREL REAMER) Anatomical Region Laterality Modality Other Narrative Transcriptions Rah Silva - 04/08/2007 12:00 AM CST Date: 04/08/2007 Patient Name: Yg Vigil : 1975 Requesting Physician: Rah Silva M.D. X-RAYS: Four views of the knee were again obtained today. There is noosteolytic or osteoblastic lesions of bone. No fractures are seen. Rah Silva M.D. [facility] Electronically Signed by Rah Silva M.D. 04/23/2007 12:56 , A kc1 Job #: Document #: [id number] cc: (Not official until signed) us Rah Silva MD DIAGNOSTIC IMAGING ORDERABLES Final Result documented in this encounter Visit Diagnoses Not on filedocumented in this encounter Care Teams Geospatial Extractor Analysis Relationship Specialty Start Date End Date Non-Staff, Physician NO ADDRESS ON FILE PCP - General 11/11/18 documented as of this encounter
--- OUTSIDE RECORDS SUMMARY | 2024-03-25 05:34 | XMS_ITS | Encounter Summary ---
Author Organization [facility] Address [address] [place] [address] Care Team Providers Care Residential Roofer Name Role Phone Non-Staff, Physician Primary Care Provider Unava ilable Encounter Details Date Type Department Care Team (Latest Contact Info) Description 05/22/2002 Outpatient Historical [facility] Medicine [place] [address] [place] [phone] Shavonne Stout MD NO ADDRESS ON FILE ACUTE URI NOS (Primary Dx); ACUTE BRONCHITIS Social History Tobacco Use Types Packs/Day Years Used Date Smoking Tobacco: Never Assessed Sex and Gender Information Value Date Recorded Sex Assigned at Not on file Legal 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
--- OUTSIDE RECORDS SUMMARY | 2024-03-25 05:34 | XMS_ITS | Encounter Summary ---
Author Organization [facility] Address [address] [place] [address] Care Team Providers Care Shank Taper Name Role Phone Non-Staff, Physician Primary Care Provider Unava ilable Encounter Details Date Type Department Care Team (Latest Contact Info) Description 01/07/2003 Outpatient Historical [facility] Medicine [place] [address] [place] [phone] Steven Vigil DO NO ADDRESS ON FILE ALLERGIC RHINITIS NOS (Primary Dx) Social History Tobacco Use Types Packs/Day Years Used Date Smoking Tobacco: Never Assessed Sex and Gender Information Value Date Recorded Sex Assigned at Not on file 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
--- OUTSIDE RECORDS SUMMARY | 2024-03-25 05:34 | XMS_ITS | Encounter Summary ---
Author Organization [facility] Address [address] [place] [address] Care Team Providers Care Still Photographer Name Role Phone Non-Staff, Physician Primary Care Provider Unava ilable Encounter Details Date Type Department Care Team (Latest Contact Info) Description 12/07/2006 Outpatient Historical [facility] Medicine [place] [address] [place] [phone] Gabbie Terry NP NO ADDRESS ON FILE Cellulitis and Abscess of Trunk (Primary Dx); Cellulitis and Abscess of Leg, except Foot Social History Tobacco Use Types Packs/Day Years Used Date Smoking Tobacco: Never Assessed Sex and Gender Information Value Date Recorded Sex Assigned at Not on file 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
--- OUTSIDE RECORDS SUMMARY | 2024-03-25 05:34 | XMS_ITS | Encounter Summary ---
Author Organization [facility] Address [address] [place] [address] Care Team Providers Care Executive Compensation Analyst Name Role Phone Non-Staff, Physician Primary Care Provider Unava ilable Encounter Details Date Type Department Care Team (Latest Contact Info) Description 01/14/2007 Outpatient Historical [facility] Medicine [place] [address] [place] [phone] Gumaro Alegre MD NO ADDRESS ON FILE Unspecified Otitis Media (Primary Dx) Social History Tobacco Use Types Packs/Day Years Used Date Smoking Tobacco: Never Assessed Sex and Gender Information Value Date Recorded Sex Assigned at Not on file Legal 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
--- OUTSIDE RECORDS SUMMARY | 2024-03-25 05:34 | XMS_ITS | Encounter Summary ---
Author Organization [facility] Address [address] [place] [address] Care Team Providers Care Senior Chemical Engineer Name Role Phone Non-Staff, Physician Primary Care Provider Unava ilable Encounter Details Date Type Department Care Team (Latest Contact Info) Description 12/03/2001 Outpatient Historical [facility] Medicine [place] [address] [facility] [address] [place] [phone] Steven Vigil DO NO ADDRESS ON FILE ACUTE BRONCHITIS (Primary Dx) Social History Tobacco Use Types Packs/Day Years Used Date Smoking Tobacco: Never Assessed Sex and Gender Information Value Date Recorded Sex Assigned at Not on file 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
--- OUTSIDE RECORDS SUMMARY | 2024-03-25 05:34 | XMS_ITS | Encounter Summary ---
Author Organization [facility] Address [address] [place] [address] Care Team Providers Care Arch Cushion Press Operator Name Role Phone Non-Staff, Physician Primary Care Provider Unava ilable Encounter Details Date Type Department Care Team (Latest Contact Info) Description 03/15/2006 Outpatient Historical [facility] Orthopedics- 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
--- OUTSIDE RECORDS SUMMARY | 2024-03-25 05:34 | XMS_ITS | Encounter Summary ---
Author Organization [facility] Address [address] [place] [address] Care Team Providers Care Raisin Separator Operator Name Role Phone Non-Staff, Physician Primary Care Provider Unava ilable Encounter Details Date Type Department Care Team (Late st Contact Info) Description 02/13/2007 Outpatient Historical 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
--- OUTSIDE RECORDS SUMMARY | 2024-03-25 05:34 | XMS_ITS | Encounter Summary ---
Author Organization [facility] Address [address] [place] [address] Care Team Providers Care Offset Proof Press Operator Name Role Phone Non-Staff, Physician Primary Care Provider Unava ilable Encounter Details Date Type Department Care Team (Latest Contact Info) Description 01/18/2001 Outpatient Historical [facility] Medicine [place] [address] [place] [address] Steven Vigil DO NO ADDRESS ON FILE DERMATITIS NOS (Primary Dx); ALLERGIC RHINITIS NOS Social History Tobacco Use Types Packs/Day Years Used Date Smoking Tobacco: Never Assessed Sex and Gender Information Value Date Recorded Sex Assigned at Not on file Legal Sex Male 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
--- OUTSIDE RECORDS SUMMARY | 2024-03-25 05:34 | XMS_ITS | Encounter Summary ---
Author Organization [facility] Address [address] [place] [address] Care Team Providers Care Real Estate Rental Agent Name Role Phone Non-Staff, Physician Primary Care Provider Unava ilable Encounter Details Date Type Department Care Team (Latest Contact Info) Description 10/29/2002 Outpatient Historical [facility] Family Medicine- [place] [address] [place] [phone] Steven Vigil DO NO ADDRESS ON FILE ALLERGIC RHINITIS NOS (Primary Dx); ACUTE PHARYNGITIS Social History Tobacco Use Types Packs/Day Years Used Date Smoking Tobacco: Never Assessed Sex and Gender Information Value Date Recorded Sex Assigned at Not on file Legal Sex Male 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
--- OUTSIDE RECORDS SUMMARY | 2024-03-25 05:34 | XMS_ITS | Encounter Summary ---
Author Organization [facility] Address [address] [place] [address] Care Team Providers Care Spanish Translator Name Role Phone Non-Staff, Physician Primary Care Provider Unava ilable Encounter Details Date Type Department Care Team (Late st Contact Info) Description 06/24/2007 Outpatient [facility] [address] 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
--- OUTSIDE RECORDS SUMMARY | 2024-03-25 05:34 | XMS_ITS | Encounter Summary ---
Author Organization [facility] Address [address] [place] [address] Care Team Providers Care Veterinary Surgery Technician Name Role Phone Non-Staff, Physician Primary Care Provider Unava ilable Encounter Details Date Type Department Care Team (Late st Contact Info) Description 10/23/2007 Outpatient Historical [facility] Other, [place] NO ADDRESS ON FILE Social History Tobacco Use Types Packs/Day Years Used Date Smoking Tobacco: Never Assessed Sex and Gender Information Value Date Recorded Sex Assigned at Not on file Legal Sex Male 4:24 AM TIP SCOURER Gender Identity Not on file Sexual Orientation Not on file documented as of this encounter Plan of Treatment Not on file documented as of this encounter Visit Diagnoses Not on filedocumented in this encounter Care Teams Veterinary Surgery Technician Relationship Specialty Start Date End Date Non-Staff, Physician NO ADDRESS ON FILE PCP - General 11/11/18 documented as of this encounter
--- OUTSIDE RECORDS SUMMARY | 2024-03-25 05:34 | XMS_ITS | Encounter Summary ---
Author Organization [facility] Address [address] [place] [address] Care Team Providers Care Tubing Machine Tender Name Role Phone Non-Staff, Physician Primary Care Provider Unava ilable Encounter Details Date Type Department Care Team (Latest Contact Info) Description 2006 Outpatient Historical [facility] Medicine [place] [address] [place] [phone] Gabbie Terry NP NO ADDRESS ON FILE Acute Pharyngitis (Primary Dx); Acute Sinusitis, Unspecified; Rash and Other Nonspecific Skin Eruption Social History Tobacco Use Types Packs/Day Years Used Date Smoking Tobacco: Never Assessed Sex and Gender Information Value Date Recorded Sex Assigned at Not on file Legal Sex Male 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
--- OUTSIDE RECORDS SUMMARY | 2024-03-25 05:34 | XMS_ITS | Encounter Summary ---
Author Organization [facility] Address [address] [place] [address] Care Team Providers Care Osteopathic Physician Name Role Phone Non-Staff, Physician Primary Care Provider Unava ilable Encounter Details Date Type Department Care Team (Late st Contact Info) Description 04/16/2007 Outpatient Historical [facility] Medicine [place] [address] [place] [address] Steven Vigil DO NO ADDRESS ON FILE Social History Tobacco Use Types Packs/Day Years Used Date Smoking Tobacco: Never Assessed Sex and Gender Information Value Date Recorded Sex Assigned at Not on file Legal 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 Pulse: 0. Not dictated. BP: 120/80. SUBJECTIVE: I have been having some numbness in my right leg. Had a shot in his knee from Dr. Silva on 04/08/2007. He felt like part of his problem is coming from his back. PHYSICAL EXAMINATION: ENT: Tympanic membranes are dull but not injected. Nose - Swelling present in both nasal turbinates. Pharynx - Postnasal drainage. NECK: Supple. HEART: Regular rate and rhythm. LUNGS: Clear to auscultation. ABDOMEN: Soft. This patient does have a moist cough. EXTREMITIES: Straight leg raising 80 degrees bilaterally. The patient also enquired about having a vasectomy and I told him we would schedule him with Dr. Garcia. ASSESSMENT: 1. Acute bronchitis. 2. Paresthesia right leg. Suspect nerve involvement lumbar area. PLAN: 1. Scheduled for an MRI of his lumbar vertebrae. 2. Schedule an appointment with Dr. Garcia. 3. Z-PRAMOD as directed. 4. 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 If the patient is not improving in 1 week, needs to be reevaluated. Steven Vigil D.O. [facility] Electronically Signed by Steven Vigil D.O. 04/23/2007 17:13 , tamiko Calero Document #: [id number] cc: RICAL ANALYSIS GROUP MANAGER documented in this encounter Plan of Treatment Not on file documented as of this encounter Visit Diagnoses Not on filedocumented in this encounter Care Teams Osteopathic Physician Relationship Specialty Start Date End Date Non-Staff, Physician NO ADDRESS ON FILE PCP - General 11/11/18 documented as of this encounter
--- OUTSIDE RECORDS SUMMARY | 2024-03-25 05:34 | XMS_ITS | Encounter Summary ---
Author Organization [facility] Address [address] [place] [address] Care Team Providers Care Electrical Lineman Name Role Phone Non-Staff, Physician Primary Care Provider Unava ilable Encounter Details Date Type Department Care Team (Latest Contact Info) Description 11/30/[address] 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
--- OUTSIDE RECORDS SUMMARY | 2024-03-25 05:34 | XMS_ITS | Encounter Summary ---
Author Organization [facility] Address [address] [place] [address] Care Team Providers Care Radiological Health Specialist Name Role Phone Non-Staff, Physician Primary Care Provider Unava ilable Encounter Details Date Type Department Care Team (Latest Contact Info) Description 06/06/2007 Outpatient Historical [facility] [address] [facility] [address] [place] [phone] Grzegorz Thomas MD [address] [facility] [address] [place] [phone] Displacement of Lumbar Intervertebral Disc without Myelopathy; Pain in Soft Tissues of Limb; Hereditary Progressive Muscular Dystrophy (CMS/HCC); Unspecified Migraine without Mention of Intractable Migraine; Unspecified Arthropathy, Site Unspecified Social History Tobacco Use Types Packs/Day Years Used Date Smoking Tobacco: Never Assessed Sex and Gender Information Value Date Recorded Sex Assigned at Not on file Legal 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 Gender Identity Not on file Sexual Orientation Not on file documented as of this encounter Plan of Treatment Not on file documented as of this encounter Visit Diagnoses Diagnosis Displacement of lumbar intervertebral disc without myelopathy Pain in limb 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
--- OUTSIDE RECORDS SUMMARY | 2024-03-25 05:34 | XMS_ITS | Encounter Summary ---
Author Organization [facility] Address [address] [place] [address] Care Team Providers Care Steam Boiler Fireman Name Role Phone Non-Staff, Physician Primary Care Provider Unava ilable Encounter Details Date Type Department Care Team (Latest Contact Info) Description 04/26/2006 Outpatient Historical [facility] Orthopedics- 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
--- OUTSIDE RECORDS SUMMARY | 2024-03-25 05:34 | XMS_ITS | Encounter Summary ---
Author Organization 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
--- OUTSIDE RECORDS SUMMARY | 2024-03-25 05:34 | XMS_ITS | Encounter Summary ---
Author Organization [facility] Address [address] [place] [address] Care Team Providers Care Floor Supervisor Name Role Phone Non-Staff, Physician Primary Care Provider Unava ilable Encounter Details Date Type Department Care Team (Latest Contact Info) Description 11/25/2007 Outpatient Historical [facility] [address] [facility] [address] [place] [address] Grzegorz Thomas MD [address] [facility] [address] [place] [phone] Hereditary Progressive Muscular Dystrophy (CMS/HCC) Social History Tobacco Use Types Packs/Day Years Used Date Smoking Tobacco: Never Assessed Sex and Gender Information Value Date Recorded Sex Assigned at Not on file 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
--- OUTSIDE RECORDS SUMMARY | 2024-03-25 05:34 | XMS_ITS | Encounter Summary ---
Author Organization [facility] Address [address] [place] [address] Care Team Providers Care Social Media Community Manager Name Role Phone Non-Staff, Physician Primary Care Provider Unava ilable Encounter Details Date Type Department Care Team (Latest Contact Info) Description 05/10/2004 Outpatient Historical [facility] [place] [address] [place] [phone] Traci Alvarado, BIOMEDICAL ANALYTICAL SCIENTIST [address] [place] [phone] Pain in limb (Primary Dx) Social History Tobacco Use Types Packs/Day Years Used Date Smoking Tobacco: Never Assessed Sex and Gender Information Value Date Recorded Sex Assigned at Not on file 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
--- OUTSIDE RECORDS SUMMARY | 2024-03-25 05:34 | XMS_ITS | Encounter Summary ---
Author Organization [facility] Address [address] [place] [address] Care Team Providers Care Healthcare Administration Intern Name Role Phone Non-Staff, Physician Primary Care Provider Unava ilable Encounter Details Date Type Department Care Team (Late st Contact Info) Description 06/14/2007 Outpatient Historical [facility] [address] [facility] [address] [place] [phone] Grzegorz Thomas MD [address] [facility] [address] [place] [phone] Social History Tobacco Use Types Packs/Day Years Used Date Smoking Tobacco: Never Assessed Sex and Gender Information Value Date Recorded Sex Assigned at Not on file 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
--- OUTSIDE RECORDS SUMMARY | 2024-03-25 05:34 | XMS_ITS | Encounter Summary ---
Author Organization [facility] Address [address] [place] [address] Care Team Providers Care Scrape Gatherer Name Role Phone Non-Staff, Physician Primary Care Provider Unava ilable Encounter Details Date Type Department Care Team (Latest Contact Info) Description 10/10/[address] 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
--- OUTSIDE RECORDS SUMMARY | 2024-03-25 05:34 | XMS_ITS | Encounter Summary ---
Author Organization [facility] Address [address] [place] [address] Care Team Providers Care Rails Developer Name Role Phone Non-Staff, Physician Primary Care Provider Unava ilable Encounter Details Date Type Department Care Team (Late st Contact Info) Description 06/26/2007 Outpatient Historical [facility] Pain Management Procedures [address] [place] [address] Grzegroz Thomas MD [address] [phone] Paolo Esteves MD NO ADDRESS ON FILE Social History Tobacco Use Types Packs/Day Years Used Date Smoking Tobacco: Never Assessed Sex and Gender Information Value Date Recorded Sex Assigned at Not on file Legal Sex Male 4:24 AM DIRECTOR PAID MEDIA Gender Identity Not on file Sexual Orientation Not on file documented as of this encounter Plan of Treatment Not on file documented as of this encounter Procedures Procedure Name Priority Date/Time Associated Diagnosis Comments XR FLUORO GREATER THAN 1 HOUR Routine 07/08/2007 6:24 PM CDT documented in this encounter Results * XR FLUORO > 1 HOUR (07/08/2007 6:24 PM CDT) Anatomical Region Laterality Modality Other 07/08/2007 6:24 PM CDT Narrative 07/08/2007 6:24 PM CDT Finalized by [employer]. No report expected. Procedure Note 03/01/2008 Finalized by interface cleanup utility. No report expected. us Paolo Esteves MD DIAGNOSTIC IMAGING ORDERABLE S Final Result documented in this encounter Visit Diagnoses Not on filedocumented in this encounter Care Teams Rails Developer Relationship Specialty Start Date End Date Non-Staff, Physician NO ADDRESS ON FILE PCP - General 11/11/18 documented as of this encounter
--- OUTSIDE RECORDS SUMMARY | 2024-03-25 05:34 | XMS_ITS | Encounter Summary ---
Author Organization [facility] Address [address] [place] [address] Care Team Providers Care Tractor Driver Name Role Phone Non-Staff, Physician Primary Care Provider Unava ilable Encounter Details Date Type Department Care Team (Latest Contact Info) Description 03/26/2006 Outpatient Historical [facility] Medicine [place] [address] [place] [phone] Gabbie Terry NP NO ADDRESS ON FILE Acute Pharyngitis (Primary Dx); Cough Social History Tobacco Use Types Packs/Day Years Used Date Smoking Tobacco: Never Assessed Sex and Gender Information Value Date Recorded Sex Assigned at Not on file Legal 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
--- OUTSIDE RECORDS SUMMARY | 2024-03-25 05:34 | XMS_ITS | Encounter Summary ---
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 INDICATION: Knee pain. TECHNIQUE: Proton density sagittal, T1 coronal, T2 fat-sat sagittal and axial, STIR coronal. COMPARISON: None. FINDINGS: The ACL, PCL, MCL, and LCL complex are intact. A physiologic joint effusion is present. Atiny amount of fluid extending between the medial head of the gastrocnemius and semimembranosustendon is present. Small amount of anterior nonspecific subcutaneous edema is present. The extensormechanism is unremarkable. No unequivocal grade III meniscal signal to suggest a definitearthroscopically visible meniscal tear is identified. Mild to moderate diffuse fattyreplacement/atrophy of the imaged musculature about the knee is noted. Minimal edema onfluid-sensitive sequences within the lateral superior aspect of the infrapatellar fat pad isidentified. No associated signal abnormality within the infrapatellar tendon is present. IMPRESSION: 1. Small focal area of edema within the infrapatellar fat pad superior laterally. No associated signalabnormality of the adjacent infrapatellar tendon is present. Otherwise negative for internalderangement. 2. Mild to moderate fatty replacement/atrophy about the musculature of the knee. Differential diagnosiswould include denervation injury versus non-weightbearing clinical correlation isrecommended. - Dictated By: ??Grace Giron M.D. Electronically Signed By: ??Grace Giron M.D. Date Signed: 02/28/06 AMA Procedure Note 01/08/2009 MRI RIGHT KNEE WITHOUT CONTRAST 02/27/2006. INDICATION: Knee pain. TECHNIQUE: Proton density sagittal, T1 coronal, T2 fat-sat sagittal and axial, STIRcoronal. COMPARISON: None. FINDINGS: The ACL, PCL, MCL, and LCL complex are intact. A physiologic jointeffusion is present. Atiny amount of fluid extending between the medial head of the gastrocnemius andsemimembranosustendon is present. Small amount of anterior nonspecific subcutaneous edema is present. Theextensormechanism is unremarkable. No unequivocal grade III meniscal signal to suggest adefinitearthroscopically visible meniscal tear is identified. Mild to moderate diffuse fattyreplacement/atrophy of theimaged musculature about the knee is noted. Minimal edema onfluid-sensitive sequences within the lateralsuperior aspect of the infrapatellar fat pad isidentified. No associated signal abnormality within theinfrapatellar tendon is present. IMPRESSION: 1. Small focal area of edema within the infrapatellar fat pad superiorlaterally. No associated signalabnormality of the adjacent infrapatellar tendon is present.Otherwise negative for internalderangement. 2. Mild to moderate fatty replacement/atrophy about the musculature of theknee. Differential diagnosiswould include denervation injury versus non-weightbearingclinical correlation isrecommended. - Dictated By: Grace Giron M.D. Electronically Signed By: Grace Giron M.D. Date Signed: 02/28/06 AMA Steven Vigil DO MR ORDERABLES Final Result documented in this encounter Visit Diagnoses Not on filedocumented in this encounter Care Teams Space Scheduler Relationship Specialty Start Date End Date Non-Staff, Physician NO ADDRESS ON FILE PCP - General 11/11/18 documented as of this encounter
--- OUTSIDE RECORDS SUMMARY | 2024-03-25 05:34 | XMS_ITS | Encounter Summary ---
Author Organization [facility] Address [address] [place] [address] Care Team Providers Care Auto Porter Name Role Phone Non-Staff, Physician Primary Care Provider Unava ilable Encounter Details Date Type Department Care Team (Latest Contact Info) Description 05/24/2000 Outpatient Historical [facility] Medicine [place] [address] [place] [phone] Steven Vigil DO NO ADDRESS ON FILE Allergic rhinitis due to other allergen (Primary Dx); Acute sinusitis, unspecified Social History Tobacco Use Types Packs/Day Years Used Date Smoking Tobacco: Never Assessed Sex and Gender Information Value Date Recorded Sex Assigned at Not on file Legal Sex Male 4:24 AM LEADITE MAN Gender Identity Not on file Sexual Orientation Not on file documented as of this encounter Plan of Treatment Not on file documented as of this encounter Visit Diagnoses Diagnosis Allergic rhinitis due to other allergen- Primary Acute sinusitis, unspecified documented in this encounter Care Teams Auto Porter Relationship Specialty Start Date End Date Non-Staff, Physician NO ADDRESS ON FILE PCP - General 11/11/18 documented as of this encounter
--- OUTSIDE RECORDS SUMMARY | 2024-03-25 05:34 | XMS_ITS | Encounter Summary ---
Author Organization [facility] Address [address] [place] [address] Care Team Providers Care Flower Grower Name Role Phone Non-Staff, Physician Primary Care Provider Unava ilable Encounter Details Date Type Department Care Team (Latest Contact Info) Description 04/02/2006 Outpatient Historical [facility] Medicine [place] [address] [place] [address] Gabbie Trery NP NO ADDRESS ON FILE Unspecified Otitis Media (Primary Dx); Acute Bronchitis; Acute Pharyngitis; Acute Sinusitis, Unspecified Social History Tobacco Use Types Packs/Day Years Used Date Smoking Tobacco: Never Assessed Sex and Gender Information Value Date Recorded Sex Assigned at Not on file Legal 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
--- OUTSIDE RECORDS SUMMARY | 2024-03-25 05:34 | XMS_ITS | Encounter Summary ---
Author Organization [facility] Address [address] [place] [address] Care Team Providers Care Psych Tech Name Role Phone Non-Staff, Physician Primary Care Provider Unava ilable Encounter Details Date Type Department Care Team (Latest Contact Info) Description 10/09/2006 Outpatient Historical [facility] Medicine [place] [address] [place] [address] Steven Vigil DO NO ADDRESS ON FILE Toxic Effect Venom (Primary Dx); Cellulitis and Abscess of Leg, except Foot Social History Tobacco Use Types Packs/Day Years Used Date Smoking Tobacco: Never Assessed Sex and Gender Information Value Date Recorded Sex Assigned at Not on file 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
--- OUTSIDE RECORDS SUMMARY | 2024-03-25 05:34 | XMS_ITS | Encounter Summary ---
Author Organization [facility] Address [address] [place] [address] Care Team Providers Care Refinery Process Engineer Name Role Phone Non-Staff, Physician Primary Care Provider Unava ilable Encounter Details Date Type Department Care Team (Latest Contact Info) Description 10/16/2006 Outpatient Historical [facility] Medicine [place] [address] [place] [address] Steven Vigil DO NO ADDRESS ON FILE Toxic Effect Venom (Primary Dx) Social History Tobacco Use Types Packs/Day Years Used Date Smoking Tobacco: Never Assessed Sex and Gender Information Value Date Recorded Sex Assigned at Not on file Legal 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
--- OUTSIDE RECORDS SUMMARY | 2024-03-25 05:34 | XMS_ITS | Encounter Summary ---
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
--- OUTSIDE RECORDS SUMMARY | 2024-03-25 05:34 | XMS_ITS | Encounter Summary ---
Author Organization [facility] Address [address] [place] [address] Care Team Providers Care Scientific Editor Name Role Phone Non-Staff, Physician Primary Care Provider Unava ilable Encounter Details Date Type Department Care Team (Latest Contact Info) Description 06/17/2003 Outpatient Historical [facility]- [address] [place] [id number] Gabbie Terry NP NO ADDRESS ON FILE ACUTE SINUSITIS NOS (Primary Dx); ABDOMINAL PAIN UNSPEC SITE; DYSURIA; INSECT BITE NEC Social History Tobacco Use Types Packs/Day Years Used Date Smoking Tobacco: Never Assessed Sex and Gender Information Value Date Recorded Sex Assigned at Not on file Legal Sex Male 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 MEDICAL 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 Gender Identity Not on file Sexual Orientation Not on file documented as of this encounter Plan of Treatment Not on file documented as of this encounter Visit Diagnoses Diagnosis Acute sinusitis, unspecified- Primary Abdominal pain, unspecified site Dysuria Other, multiple, and unspecified sites, insect bite, nonvenomous, without mention of infection(919.4) Other, multiple, and unspecified sites, insect bite, nonvenomous, without mention of infection documented in this encounter Care Teams Scientific Editor Relationship Specialty Start Date End Date Non-Staff, Physician NO ADDRESS ON FILE PCP - General 11/11/18 documented as of this encounter
== END 2024-03-18 17:01 | disposition home or self-care (01) | DRG 872 ==
LOC: ER 19:22 → ER IP 21:44 → MEDSURG 03-16 13:30
PROVIDERS: Family Medicine; Internal Medicine; Admitting Provider Student in an Organized Health Care Education/Training Program; Emergency Provider Physician Assistant Medical; PCP Nurse Practitioner Family; Visit Provider Internal Medicine
DX: A41.9 Sepsis, unspecified organism (principal); I50.22 Chronic systolic (congestive) heart failure; N39.0 Urinary tract infection, site not specified; I11.0 Hypertensive heart disease with heart failure; B96.4 Proteus (mirabilis) (morganii) as the cause of diseases classified elsewhere; I48.91 Unspecified atrial fibrillation; G71.00 Muscular dystrophy, unspecified; G47.33 Obstructive sleep apnea (adult) (pediatric); K90.0 Celiac disease; E78.5 Hyperlipidemia, unspecified; Z79.82 Long term (current) use of aspirin; Z79.02 Long term (current) use of antithrombotics/antiplatelets; R09.02 Hypoxemia
CPT/HCPCS: 36415; 36600; 71045; 71250; 74176; 80051; 80053; 80061; 81001; 82330; 82607; 82746; 82805; 83036; 83540; 83550; 83605; 83735; 84100; 84145; 84439; 84443; 84484; 85025; 85378; 85610; 85730; 86403; 87040; 87077; 87086; 87186; 87486; 87491; 87581; 87591; 87633; 93005; 93306; 94640; 94660; 94760; 96365; 96366; 96367; 96372; 99285; 99291; J0696; J1650; J2405; J2543; J3490; J7040; J7614; J7626; J7644; Q0144

== ENCOUNTER → 2024-07-07 15:38 | Outpatient (BNVA) | payer MEDICARE, MEDICAID, SELFPAY | PROVIDERS: PCP Nurse Practitioner Family; Visit Provider Internal Medicine Cardiovascular Disease | DX: I48.91 Unspecified atrial fibrillation (principal); I11.0 Hypertensive heart disease with heart failure; I50.22 Chronic systolic (congestive) heart failure; E78.2 Mixed hyperlipidemia; I42.0 Dilated cardiomyopathy; G71.00 Muscular dystrophy, unspecified; Z79.01 Long term (current) use of anticoagulants | CPT/HCPCS: 99214 ==

== ENCOUNTER → 2025-01-28 15:45 | Outpatient (BNVA) | payer MEDICARE, MEDICAID, SELFPAY | PROVIDERS: PCP Family Medicine; Visit Provider Internal Medicine Cardiovascular Disease | DX: I48.20 Chronic atrial fibrillation, unspecified (principal); Z79.01 Long term (current) use of anticoagulants; I11.0 Hypertensive heart disease with heart failure; I50.30 Unspecified diastolic (congestive) heart failure; E78.2 Mixed hyperlipidemia; R42 Dizziness and giddiness | CPT/HCPCS: 99214 ==